=== PATIENT | female | born 1995 | race Caucasian/White ===

== ENCOUNTER → 2017-02-04 | Outpatient (CLI) | payer OTHER ==
--- NOTE | 2017-02-04 09:15 | US ---
EXAMINATION TYPE: US abdomen complete DATE OF EXAM: 02/04/2017 8:32 AM COMPARISON: NONE CLINICAL HISTORY: 21 year-old female with elevated Liver Enzymes R74.8. TECHNIQUE: Multiple sonographic images of the abdomen were obtained. 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 Liver Length: 22.4 cm Gallbladder Wall: 0.2 cm CBD: 0.4 cm Spleen: 11.2 cm Right Kidney: 10.5 x 4.7 x 3.9cm Left Kidney: 11.6 x 4.5 x 4.5 cm Pancreas: Only a small portion of the pancreatic neck and body are seen. The pancreatic tail and head are suboptimally visualized. Liver: Enlarged, measuring larger than prior exam. There is marked diffuse increased echogenicity wit h far field attenuation also as noted previously. This secondarily limits assessment for focal lesion . Gallbladder: No abnormal gallbladder distention, wall thickening, pericholecystic fluid, or shadowin g calculi. Evidence for sonographic Levi's sign: No CBD: wnl Spleen: wnl Right Kidney: No hydronephrosis Left Kidney: No hydronephrosis Upper IVC: wnl Abd Aorta: wnl IMPRESSION: Hepatomegaly with the liver measuring larger as compared to 2014. There is marked hepatic steatosis. Consider medical intervention.
== END | disposition home or self-care (01) ==
LOC: RADUSWWP 08:00
PROVIDERS: ATTEND Family Medicine
DX: K76.0 Fatty (change of) liver, not elsewhere classified (principal); R16.0 Hepatomegaly, not elsewhere classified
CPT/HCPCS: 76700

== ENCOUNTER 2017-06-12 15:34 | Emergency (ER) | payer OTHER ==
[2017-06-12 15:47] VITALS: BP 150/90; PULSE 86; RESP 18; TEMP 98.6
--- NOTE | 2017-06-12 16:05 | ED ---
Upper Extremity HPI - General Chief Complaint: Extremity Injury, Upper Stated Complaint: Finger Pain Time Seen by Provider: 06/12/17 15:53 Source: patient, RN notes reviewed, old records reviewed Mode of arrival: ambulatory Limitations: no limitations - History of Present Illness Initial Comments: This is a 22-year-old female to emergency Department chief complaint of right fourth finger pain. Patient reports that she was sweeping crumbs off of her bed when she felt her finger bent backward. Patient reports that she's had a previous fracture over her finger and is concerned that there may be further injury besides just a sprain. She states that she is right-handed. She denies any peripheral paresthesias. She reports that she has full range of motion distally to the finger but has pain mainly over the MCP.Patient denies any recent fever, chills, shortness of breath, chest pain, back pain, abdominal pain , nausea vomiting, numbness or tingling, dysuria or hematuria, constipation or diarrhea, headaches or visual changes, or any other current symptoms - Related Data Home Medications Medication Instructions Recorded Confirmed Albuterol Sulfate [Ventolin HFA] 2 puff INHALATION RT-Q6H PRN 04/08/14 10/26/16 Levothyroxine Sodium [Synthroid] 175 mcg PO DAILY 04/08/14 10/26/16 Omeprazole [PriLOSEC] 20 mg PO AC-BID 04/08/14 10/26/16 Loratadine [Claritin] 10 mg PO DAILY 02/05/16 10/26/16 Pnv,Calcium 72/Iron/Folic Acid 1 tab PO DAILY 02/05/16 10/26/16 [ Plus Tablet] Hydrochlorothiazide 25 mg PO DAILY 08/28/16 10/26/16 [Hydrochlorothiazide] Previous Rx's Medication Instructions Recorded Azithromycin [Zithromax Z-pack] 250 mg PO DIRECTED #6 tab 08/28/16 Amoxicillin 500 mg PO Q8H #21 capsule 10/18/16 Azithromycin [Zithromax Z-pack] 250 mg PO DIRECTED #6 tab 10/26/16 methylPREDNISolone [Medrol Dose 4 mg PO DIRECTED #1 pack 10/26/16 Pack] Allergies Allergy/AdvReac Type Severity Reaction Status Date / Time benzonatate Allergy Anaphylaxis Verified 06/12/17 15:47 [From Tesmikayla Perles] ibuprofen [From Motrin] Allergy Rash/Hives Verified 06/12/17 15:47 sulfamethoxazole Allergy Rash/Hives Verified 06/12/17 15:47 [From Bactrim] trimethoprim [From Bactrim] Allergy Rash/Hives Verified 06/12/17 15:47 Review of Systems ROS Statement: Those systems with pertinent positive or pertinent negative responses have been documented in the HPI. ROS Other: All systems not noted in ROS Statement are negative. Past Medical History Past Medical History: Asthma, GERD/Reflux, Thyroid Disorder History of Any Multi-Drug Resistant Organisms: None Reported Past Surgical History: Adenoidectomy Additional Past Surgical History / Comment(s): Eye surgery Past Psychological History: Anxiety, Depression Smoking Status: Former smoker Past Alcohol Use History: Occasional Past Drug Use History: None Reported General Exam - General Exam Comments Initial Comments: Well-appearing 22-year-old female. No acute distress. Limitations: no limitations General appearance: alert, in no apparent distress Head exam: Present: atraumatic, normocephalic, normal inspection Eye exam: Present: normal appearance, PERRL, EOMI. Absent: scleral icterus, conjunctival injection, periorbital swelling ENT exam: Present: normal exam, mucous membranes moist Neck exam: Present: normal inspection. Absent: tenderness, meningismus, lymphadenopathy Respiratory exam: Present: normal lung sounds bilaterally. Absent: respiratory distress, wheezes, rales, rhonchi, stridor Cardiovascular Exam: Present: regular rate, normal rhythm, normal heart sounds. Absent: systolic murmur, diastolic murmur, rubs, gallop, clicks GI/Abdominal exam: Present: soft, normal bowel sounds. Absent: distended, tenderness, guarding, rebound, rigid Extremities exam: Present: normal inspection, full ROM, normal capillary refill. Absent: tenderness, pedal edema, joint swelling, calf tenderness Right Hand Wrist exam: Present: normal inspection, full ROM, tenderness (Patient has tenderness over 4th MCP joint. Full range of motion. ) Neuro motor exam: Present: wrist extension intact, thumb opposition intact, thumb IP flexion intact, thumb adduction intact, fingers 2-5 abduction intact Vascular: Present: normal capillary refill Back exam: Present: normal inspection Neurological exam: Present: alert, oriented X3, CN II-XII intact Psychiatric exam: Present: normal affect, normal mood Skin exam: Present: warm, dry, intact, normal color. Absent: rash Course Vital Signs 06/12/17 15:45 Temperature 98.6 F Pulse Rate 86 Respiratory 18 Rate Blood Pressure 150/90 O2 Sat by Pulse 99 Oximetry Medical Decision Making - Medical Decision Making This is a 22-year-old female to emergency Department chief complaint of right fourth finger pain. Patient reports that she was sweeping crumbs off of her bed when she felt her finger bent backward. Patient reports that she's had a previous fracture over her finger and is concerned that there may be further injury besides just a sprain. Patient has full range of motion of her finger. No significant deformity noted. No bruising noted. Patient is concerned for fracture. One view x-ray of the hand was obtained. No evidence of any acute process. Patient be given a finger splint. - Radiology Data Radiology results: report reviewed X-ray reviewed and negative for any acute process. Disposition Clinical Impression: Sprain of finger, right Disposition: HOME SELF-CARE Condition: Good Instructions: Hand Sprain (ED) Additional Instructions: Patient advised to take Motrin Tylenol for pain. Wear the splint. Return to the emergency department if any alarming signs or symptoms occur. Referrals: Gisella Smith MD [Primary Care Provider] - 1-2 days Time of Disposition: 16:21
--- NOTE | 2017-06-12 16:15 | XR ---
EXAMINATION TYPE: XR hand limited RT DATE OF EXAM: 06/12/2017 CLINICAL HISTORY: pain TECHNIQUE: Frontal, lateral images of the right hand are obtained. COMPARISON: None. FINDINGS: There is no acute fracture/dislocation evident. The joint spaces appear within normal limi ts. The overlying soft tissue appears unremarkable. IMPRESSION: There is no acute fracture or dislocation ICD 10 NO FRACTURE, INITIAL EVALUATION
== END 2017-06-12 16:36 | disposition home or self-care (01) ==
LOC: EC 15:34
DX: S63.619A Unspecified sprain of unspecified finger, initial encounter (principal); K21.9 Gastro-esophageal reflux disease without esophagitis; E07.9 Disorder of thyroid, unspecified; Z87.891 Personal history of nicotine dependence; Z79.899 Other long term (current) drug therapy; Z88.2 Allergy status to sulfonamides; Z88.6 Allergy status to analgesic agent; Z88.8 Allergy status to other drugs, medicaments and biological substances; X50.9XXA Other and unspecified overexertion or strenuous movements or postures, initial encounter
CPT/HCPCS: 99284

== ENCOUNTER 2017-08-14 10:43 | Emergency (ER) | payer OTHER ==
[2017-08-14 10:58] VITALS: RESP 18
[2017-08-14] MEDS ORDERED: ACETAMINOPHEN TAB 500 MG TAB PO STA (11:07)
--- NOTE | 2017-08-14 11:14 | ED ---
General Adult HPI - General Chief complaint: Fever Stated complaint: migraine Time Seen by Provider: 08/14/17 11:01 Source: patient, RN notes reviewed Mode of arrival: ambulatory Limitations: no limitations - History of Present Illness Initial comments: 22-year-old female presents to the emergency room chief complaint of fever. Patient states she had a fever 2 days ago she was seen here she was told she had most likely the stomach bug and sent home. Patient states that today she noticed the fever is back. She not taking medicine prior to arrival. She states she's had a cough and congestion. She states she has soreness to bilateral aspects of the neck. She denies any vomiting but states she still having the nausea. She denies any abdominal pain. She states she did not get her influenza vaccination. Patient was concerned due to her continued symptoms so she thought that she should be evaluated. Patient denies any recent shortness of breath, chest pain, back pain, abdominal pain, nausea vomiting, numbness or tingling, dysuria or hematuria, constipation or diarrhea, or any other current symptoms. - Related Data Home Medications Medication Instructions Recorded Confirmed Albuterol Sulfate [Ventolin HFA] 2 puff INHALATION RT-Q6H PRN 04/08/14 08/14/17 Loratadine [Claritin] 10 mg PO DAILY 02/05/16 08/14/17 Beclomethasone Dip 80 Mcg/Puff 1 puff INHALATION RT-BID PRN 08/12/17 08/14/17 [Qvar] FLUoxetine HCL [PROzac] 20 mg PO DAILY 08/12/17 08/14/17 Levothyroxine Sodium [Synthroid] 50 mcg PO DAILY 08/12/17 08/14/17 Levothyroxine Sodium [Synthroid] 200 mcg PO DAILY 08/12/17 08/14/17 Montelukast Sodium [Singulair] 10 mg PO QAM 08/12/17 08/14/17 Omeprazole 40 mg PO DAILY 08/12/17 08/14/17 Rgd-Qyvv-Gkati Acid 1 cap PO DAILY 08/12/17 08/14/17 [-U Capsule (formulary)] glipiZIDE [Glucotrol] 5 mg PO BID 08/12/17 08/14/17 Allergies Allergy/AdvReac Type Severity Reaction Status Date / Time benzonatate Allergy Anaphylaxis Verified 08/14/17 11:18 [From Tessalon Perles] ibuprofen [From Motrin] Allergy Rash/Hives Verified 08/14/17 11:18 sulfamethoxazole Allergy Rash/Hives Verified 08/14/17 11:18 [From Bactrim] trimethoprim [From Bactrim] Allergy Rash/Hives Verified 08/14/17 11:18 Review of Systems ROS Statement: Those systems with pertinent positive or pertinent negative responses have been documented in the HPI. ROS Other: All systems not noted in ROS Statement are negative. Past Medical History Past Medical History: Asthma, GERD/Reflux, Thyroid Disorder History of Any Multi-Drug Resistant Organisms: None Reported Past Surgical History: Adenoidectomy Additional Past Surgical History / Comment(s): Eye surgery Past Psychological History: Anxiety, Depression Smoking Status: Former smoker Past Alcohol Use History: Occasional Past Drug Use History: Marijuana General Exam - General Exam Comments Initial Comments: General: The patient is awake and alert, in no distress, and does not appear acutely ill. Eye: Pupils are equal, round and reactive to light. Ears, nose, mouth and throat: There are moist mucous membranes. Neck: The neck is supple, there is no tenderness. Full range of motion. Patient is able to touch chin to chest. Cardiovascular: There is a regular rate and rhythm. No murmur, rub or gallop is appreciated. Respiratory: Lungs are clear to auscultation, respirations are non-labored, breath sounds are equal. No wheezes, stridor, rales, or rhonchi. Gastrointestinal: Soft, non-distended, non-tender abdomen without masses or organomegaly noted. There is no rebound or guarding present. No CVA tenderness. Bowel sounds are unremarkable. Back: There is no tenderness to palpation in the midline. There is no obvious deformity. No rashes noted. Musculoskeletal: Normal ROM, no tenderness, There is no pedal edema. There is no calf tenderness or swelling. Sensation intact. Pulses equal bilaterally 2+. Neurological: CN II-XII intact, There are no obvious motor or sensory deficits. Coordination appears grossly intact. Speech is normal. Skin: Skin is warm and dry and no rashes or lesions are noted. Psychiatric: Cooperative, appropriate mood & affect, normal judgment. Limitations: no limitations Course Vital Signs 09/28/17 09/28/17 09/28/17 10:55 12:14 13:28 Temperature 101.8 F H 99.5 F Pulse Rate 136 H 118 H 89 Respiratory 18 18 18 Rate Blood Pressure 135/93 144/87 136/80 O2 Sat by Pulse 98 96 100 Oximetry Medical Decision Making - Medical Decision Making 22-year-old female presents to the emergency department with a chief complaint of fever. At this time lab work is been reviewed. Patient's symptoms have improved drastically. This time patient's neck discomfort does not appear to be most likely due to muscle aches. This time we did discuss close follow-up with her doctor. We discussed return parameters all the patient's. She stated that she understood and she does agree with this plan. All questions have been answered. This time the patient will be discharged home. - Lab Data Result diagrams: 08/14/17 11:16 08/14/17 11:16 Lab Results 08/14/17 08/14/17 08/14/17 Range/Units 10:58 11:16 11:16 WBC 10.6 (3.8-10.6) k/uL RBC 4.69 (3.80-5.40) m/uL Hgb 9.3 L (11.4-16.0) gm/dL Hct 32.1 L (34.0-46.0) % MCV 68.5 L (80.0-100.0) fL MCH 19.8 L (25.0-35.0) pg MCHC 28.9 L (31.0-37.0) g/dL RDW 16.4 H (11.5-15.5) % Plt Count 458 H (150-450) k/uL Neutrophils % 75 % Lymphocytes % 17 % Monocytes % 4 % Eosinophils % 2 % Basophils % 0 % Neutrophils # 7.9 H (1.3-7.7) k/uL Lymphocytes # 1.8 (1.0-4.8) k/uL Monocytes # 0.4 (0-1.0) k/uL Eosinophils # 0.2 (0-0.7) k/uL Basophils # 0.0 (0-0.2) k/uL Hypochromasia Marked Poikilocytosis Slight Anisocytosis Slight Microcytosis Marked PT (9.0-12.0) sec INR (<1.2) APTT (22.0-30.0) sec Sodium (137-145) mmol/L Potassium (3.5-5.1) mmol/L Chloride (98-107) mmol/L Carbon Dioxide (22-30) mmol/L Anion Gap mmol/L BUN (7-17) mg/dL Creatinine (0.52-1.04) mg/dL Est GFR (MDRD) Af Amer (>60 ml/min/1.73 sqM) Est GFR (MDRD) Non-Af (>60 ml/min/1.73 sqM) Glucose (74-99) mg/dL Plasma Lactic Acid Tk 1.8 (0.7-2.0) mmol/L Calcium (8.4-10.2) mg/dL Total Bilirubin (0.2-1.3) mg/dL AST (14-36) U/L ALT (9-52) U/L Alkaline Phosphatase (38-126) U/L Total Protein (6.3-8.2) g/dL Albumin (3.5-5.0) g/dL Urine Color Urine Appearance (Clear) Urine pH (5.0-8.0) Ur Specific [place] (1.001-1.035) Urine Protein (Negative) Urine Glucose (UA) (Negative) Urine Ketones (Negative) Urine Blood (Negative) Urine Nitrite (Negative) Urine Bilirubin (Negative) Urine Urobilinogen (<2.0) mg/dL Ur Leukocyte Esterase (Negative) Urine RBC (0-5) /hpf Urine WBC (0-5) /hpf Ur Squamous Epith Cells (0-4) /hpf Urine Bacteria (None) /hpf Urine Mucus (None) /hpf Heterophile Antibody Negative (Negative) Influenza Type A RNA (Not Detectd) Influenza Type B (PCR) (Not Detectd) 08/14/17 08/14/17 08/14/17 Range/Units 11:16 11:16 11:16 WBC (3.8-10.6) k/uL RBC (3.80-5.40) m/uL Hgb (11.4-16.0) gm/dL Hct (34.0-46.0) % MCV (80.0-100.0) fL MCH (25.0-35.0) pg MCHC (31.0-37.0) g/dL RDW (11.5-15.5) % Plt Count (150-450) k/uL Neutrophils % % Lymphocytes % % Monocytes % % Eosinophils % % Basophils % % Neutrophils # (1.3-7.7) k/uL Lymphocytes # (1.0-4.8) k/uL Monocytes # (0-1.0) k/uL Eosinophils # (0-0.7) k/uL Basophils # (0-0.2) k/uL Hypochromasia Poikilocytosis Anisocytosis Microcytosis PT 11.1 (9.0-12.0) sec INR 1.1 (<1.2) APTT 26.0 (22.0-30.0) sec Sodium 137 (137-145) mmol/L Potassium 3.9 (3.5-5.1) mmol/L Chloride 101 (98-107) mmol/L Carbon Dioxide 24 (22-30) mmol/L Anion Gap 12 mmol/L BUN 8 (7-17) mg/dL Creatinine 0.79 (0.52-1.04) mg/dL Est GFR (MDRD) Af Amer >60 (>60 ml/min/1.73 sqM) Est GFR (MDRD) Non-Af >60 (>60 ml/min/1.73 sqM) Glucose 168 H (74-99) mg/dL Plasma Lactic Acid Tk (0.7-2.0) mmol/L Calcium 9.1 (8.4-10.2) mg/dL Total Bilirubin 0.3 (0.2-1.3) mg/dL AST 52 H (14-36) U/L ALT 62 H (9-52) U/L Alkaline Phosphatase 75 (38-126) U/L Total Protein 7.7 (6.3-8.2) g/dL Albumin 4.0 (3.5-5.0) g/dL Urine Color Yellow Urine Appearance Cloudy H (Clear) Urine pH 7.5 (5.0-8.0) Ur Specific [place] 1.012 (1.001-1.035) Urine Protein Trace H (Negative) Urine Glucose (UA) Negative (Negative) Urine Ketones Negative (Negative) Urine Blood Negative (Negative) Urine Nitrite Negative (Negative) Urine Bilirubin Negative (Negative) Urine Urobilinogen <2.0 (<2.0) mg/dL Ur Leukocyte Esterase Negative (Negative) Urine RBC 1 (0-5) /hpf Urine WBC 2 (0-5) /hpf Ur Squamous Epith Cells 11 H (0-4) /hpf Urine Bacteria Rare H (None) /hpf Urine Mucus Rare H (None) /hpf Heterophile Antibody (Negative) Influenza Type A RNA (Not Detectd) Influenza Type B (PCR) (Not Detectd) 08/14/17 Range/Units 11:16 WBC (3.8-10.6) k/uL RBC (3.80-5.40) m/uL Hgb (11.4-16.0) gm/dL Hct (34.0-46.0) % MCV (80.0-100.0) fL MCH (25.0-35.0) pg MCHC (31.0-37.0) g/dL RDW (11.5-15.5) % Plt Count (150-450) k/uL Neutrophils % % Lymphocytes % % Monocytes % % Eosinophils % % Basophils % % Neutrophils # (1.3-7.7) k/uL Lymphocytes # (1.0-4.8) k/uL Monocytes # (0-1.0) k/uL Eosinophils # (0-0.7) k/uL Basophils # (0-0.2) k/uL Hypochromasia Poikilocytosis Anisocytosis Microcytosis PT (9.0-12.0) sec INR (<1.2) APTT (22.0-30.0) sec Sodium (137-145) mmol/L Potassium (3.5-5.1) mmol/L Chloride (98-107) mmol/L Carbon Dioxide (22-30) mmol/L Anion Gap mmol/L BUN (7-17) mg/dL Creatinine (0.52-1.04) mg/dL Est GFR (MDRD) Af Amer (>60 ml/min/1.73 sqM) Est GFR (MDRD) Non-Af (>60 ml/min/1.73 sqM) Glucose (74-99) mg/dL Plasma Lactic Acid Tk (0.7-2.0) mmol/L Calcium (8.4-10.2) mg/dL Total Bilirubin (0.2-1.3) mg/dL AST (14-36) U/L ALT (9-52) U/L Alkaline Phosphatase (38-126) U/L Total Protein (6.3-8.2) g/dL Albumin (3.5-5.0) g/dL Urine Color Urine Appearance (Clear) Urine pH (5.0-8.0) Ur Specific [place] (1.001-1.035) Urine Protein (Negative) Urine Glucose (UA) (Negative) Urine Ketones (Negative) Urine Blood (Negative) Urine Nitrite (Negative) Urine Bilirubin (Negative) Urine Urobilinogen (<2.0) mg/dL Ur Leukocyte Esterase (Negative) Urine RBC (0-5) /hpf Urine WBC (0-5) /hpf Ur Squamous Epith Cells (0-4) /hpf Urine Bacteria (None) /hpf Urine Mucus (None) /hpf Heterophile Antibody (Negative) Influenza Type A RNA Not Detected (Not Detectd) Influenza Type B (PCR) Not Detected (Not Detectd) Disposition Clinical Impression: Fever, Viral syndrome Disposition: HOME SELF-CARE Condition: Stable Instructions: Fever in Adults (ED) Additional Instructions: Please use medication as discussed. Please follow up with family doctor if symptoms have not improved over the next two days. Please return to the emergency room if your symptoms increase or worsen or for any other concerns. Referrals: Gisella Smith MD [Primary Care Provider] - 1-2 days Time of Disposition: 13:42
[2017-08-14 11:49] LABS: Anisocytosis Slight; Appearance,Urine Cloudy (Clear); Bacteria,Urine Rare /hpf; Basophils % (A) 0 %; Bilirubin,Urine Negative (Negative); CH 19.4; CHCM 28.4; Eosinophils # (A) 0.2 k/uL (0-0.7); Eosinophils % (A) 2 %; Glucose,Urine (UA) Negative (Negative); HCT 32.1 % (34.0-46.0); HDW 3.58; HGB 9.3 gm/dL (11.4-16.0); Hypochromasia Marked; Ketones,Urine Negative (Negative); Leukocyte Esterase,Urine Negative (Negative); Luc # (Auto) 0.28; Luc % (Auto) 3; Lymphocytes # (A) 1.8 k/uL (1.0-4.8); Lymphocytes % (A) 17 %; MCH 19.8 pg (25.0-35.0); MCHC 28.9 g/dL (31.0-37.0); MCV 68.5 fL (80.0-100.0); Mean Platelet Volume 7.4; Microcytosis Marked; Monocytes # (A) 0.4 k/uL (0-1.0); Monocytes % (A) 4 %; Mucus,Urine Rare /hpf; Neutrophils # (A) 7.9 k/uL (1.3-7.7); Neutrophils % (A) 75 %; Nitrite,Urine Negative (Negative); PH, Urine 7.5 (5.0-8.0); Particle Count 4935; Poikilocytosis Slight; Protein,Urine Trace (Negative); RBC 4.69 m/uL (3.80-5.40); RBC,Urine 1 /hpf (0-5); RDW 16.4 % (11.5-15.5); Specific Gravity,Urine 1.012 (1.001-1.035); Squamous Epithelial Cell,Urine 11 /hpf (0-4); UA Billing (MACRO vs. MICRO) MICRO; Urobilinogen,Urine <2.0 mg/dL (<2.0); WBC 10.6 k/uL (3.8-10.6); WBC (Perox) 11.08; WBC,Urine 2 /hpf (0-5)
[2017-08-14 11:52] LABS: ALT 62 U/L (9-52); AST 52 U/L (14-36); Alkaline Phosphatase 75 U/L (38-126); Anion Gap 12 mmol/L; Blood Urea Nitrogen 8 mg/dL (7-17); Calcium 9.1 mg/dL (8.4-10.2); Carbon Dioxide 24 mmol/L (22-30); Chloride 101 mmol/L (98-107); Glucose 168 mg/dL (74-99); Non-African American GFR(MDRD) >60 (>60 ml/min/1.73 sqM); Potassium 3.9 mmol/L (3.5-5.1); Sodium 137 mmol/L (137-145); Total Bilirubin 0.3 mg/dL (0.2-1.3); Total Protein 7.7 g/dL (6.3-8.2)
[2017-08-14 12:12] LABS: INR 1.1 (<1.2); Prothrombin Time 11.1 sec (9.0-12.0)
[2017-08-14] MEDS ORDERED: SODIUM CHLORIDE 0.9% 1,000 ML IV STA (12:16)
[2017-08-14] MEDS ORDERED: ONDANSETRON 4 MG/2 ML VIAL IVP STA (12:16)
[2017-08-14 13:28] VITALS: BP 136/80; PULSE 89
[2017-08-14 14:19] VITALS: TEMP 98.1
== END 2017-08-14 14:18 | disposition home or self-care (01) ==
LOC: EC 10:43
DX: B34.9 Viral infection, unspecified (principal); J45.909 Unspecified asthma, uncomplicated; K21.9 Gastro-esophageal reflux disease without esophagitis; F32.9 Major depressive disorder, single episode, unspecified; E07.9 Disorder of thyroid, unspecified; Z87.891 Personal history of nicotine dependence; Z88.2 Allergy status to sulfonamides; Z88.6 Allergy status to analgesic agent; Z88.8 Allergy status to other drugs, medicaments and biological substances; Z79.84 Long term (current) use of oral hypoglycemic drugs; Z79.899 Other long term (current) drug therapy
CPT/HCPCS: 36415; 80053; 83605; 85025; 85610; 85730; 86308; 81001; 87040; 87086; 87502; 99283; 96374; 96361; J2405

== ENCOUNTER 2017-08-17 00:15 | Emergency (ER) | payer OTHER ==
[2017-08-17] MEDS ORDERED: SODIUM CHLORIDE 0.9% 1,000 ML IV ONE (01:00)
[2017-08-17] MEDS ORDERED: ONDANSETRON 4 MG/2 ML VIAL IVP STA (01:00)
[2017-08-17] MEDS ORDERED: AZITHROMYCIN 500 MG TAB PO STA (01:00)
--- NOTE | 2017-08-17 01:31 | ED ---
Fever HPI - General Chief Complaint: Fever Stated Complaint: fever Time Seen by Provider: 08/17/17 00:19 Source: patient Mode of arrival: ambulatory Limitations: no limitations - History of Present Illness Initial Comments: This patient is a 22-year-old woman who presents with complaint that she continues to have intermittent fevers. The patient states that she was seen here for the same but symptoms continue. She states that about 8-10 days ago she started having a little bit of a nonproductive cough. She has then been having about 5-6 days of intermittent fevers. She states that she will take Tylenol and they will improve a bit but they recur. She also has had a bit of diarrhea and vomiting. The diarrhea resolved but she does have some vomiting if she takes much in way of solid foods. She states she is tolerating Gatorade. She denies abdominal pain. She denies chest pain. She also has had some upper respiratory congestion. MD Complaint: fever -: days(s) Temperature Source: oral Associated Symptoms: cough, nausea, diarrhea Treatments Prior to Arrival: Acetaminophen - Related Data Home Medications Medication Instructions Recorded Confirmed Albuterol Sulfate [Ventolin HFA] 2 puff INHALATION RT-Q6H PRN 04/08/14 08/14/17 Loratadine [Claritin] 10 mg PO DAILY 02/05/16 08/14/17 Beclomethasone Dip 80 Mcg/Puff 1 puff INHALATION RT-BID PRN 08/12/17 08/14/17 [Qvar] FLUoxetine HCL [PROzac] 20 mg PO DAILY 08/12/17 08/14/17 Levothyroxine Sodium [Synthroid] 50 mcg PO DAILY 08/12/17 08/14/17 Levothyroxine Sodium [Synthroid] 200 mcg PO DAILY 08/12/17 08/14/17 Montelukast Sodium [Singulair] 10 mg PO QAM 08/12/17 08/14/17 Omeprazole 40 mg PO DAILY 08/12/17 08/14/17 Oxy-Oayq-Wkzhk Acid 1 cap PO DAILY 08/12/17 08/14/17 [-U Capsule (formulary)] glipiZIDE [Glucotrol] 5 mg PO BID 08/12/17 08/14/17 Previous Rx's Medication Instructions Recorded Azithromycin [Zithromax Z-pack] 250 mg PO DIRECTED #6 tab 10/01/17 Ondansetron Odt [Zofran ODT] 4 mg PO Q8HR PRN #10 tab 08/17/17 Allergies Allergy/AdvReac Type Severity Reaction Status Date / Time benzonatate Allergy Anaphylaxis Verified 08/17/17 00:28 [From Tessalon Perles] ibuprofen [From Motrin] Allergy Rash/Hives Verified 08/17/17 00:28 sulfamethoxazole Allergy Rash/Hives Verified 08/17/17 00:28 [From Bactrim] trimethoprim [From Bactrim] Allergy Rash/Hives Verified 08/17/17 00:28 Review of Systems ROS Statement: Those systems with pertinent positive or pertinent negative responses have been documented in the HPI. ROS Other: All systems not noted in ROS Statement are negative. Constitutional: Reports: as per HPI, fever, chills. Denies: weakness Eyes: Denies: vision change ENT: Reports: congestion. Denies: throat pain Respiratory: Reports: as per HPI, cough, wheezes. Denies: dyspnea, hemoptysis Cardiovascular: Denies: chest pain, orthopnea, edema, syncope Gastrointestinal: Reports: as per HPI, vomiting, diarrhea. Denies: abdominal pain, nausea Genitourinary: Denies: dysuria, frequency, hematuria Musculoskeletal: Denies: back pain Skin: Denies: rash Neurological: Denies: headache, weakness, numbness Past Medical History Past Medical History: Asthma, GERD/Reflux, Thyroid Disorder History of Any Multi-Drug Resistant Organisms: None Reported Past Surgical History: Adenoidectomy Additional Past Surgical History / Comment(s): Eye surgery Past Psychological History: Anxiety, Depression Smoking Status: Former smoker Past Alcohol Use History: Occasional Past Drug Use History: Marijuana General Exam Limitations: no limitations General appearance: alert, in no apparent distress, obese Head exam: Present: atraumatic, normocephalic Eye exam: Present: normal appearance. Absent: scleral icterus, conjunctival injection Neck exam: Present: normal inspection, full ROM. Absent: meningismus Respiratory exam: Present: normal lung sounds bilaterally. Absent: respiratory distress, wheezes, rales, rhonchi, stridor Cardiovascular Exam: Present: normal rhythm, tachycardia (Rate approximately 108 at my exam), normal heart sounds. Absent: systolic murmur, diastolic murmur , rubs, gallop GI/Abdominal exam: Present: soft. Absent: distended, tenderness, guarding, rebound, mass Extremities exam: Present: normal inspection, normal capillary refill. Absent: pedal edema, calf tenderness Back exam: Present: normal inspection. Absent: CVA tenderness (R), CVA tenderness (L) Neurological exam: Present: alert Skin exam: Present: warm, dry, intact, normal color. Absent: rash Course Vital Signs 08/17/17 08/17/17 00:18 02:52 Temperature 101.8 F H 100 F H Pulse Rate 121 H 107 H Respiratory 16 20 Rate Blood Pressure 156/99 147/62 O2 Sat by Pulse 97 98 Oximetry Disposition Clinical Impression: Pneumonia Disposition: HOME SELF-CARE Condition: Fair Instructions: Pneumonia (ED) Prescriptions: Azithromycin [Zithromax Z-pack] 250 mg PO DIRECTED #6 tab Ondansetron Odt [Zofran ODT] 4 mg PO Q8HR PRN #10 tab PRN Reason: Nausea Referrals: Gisella Smith MD [Primary Care Provider] - 1-2 days
[2017-08-17 03:35] VITALS: BP 142/70; PULSE 80; RESP 18; TEMP 98
== END 2017-08-17 03:34 | disposition home or self-care (01) ==
LOC: EC 00:15
DX: J18.9 Pneumonia, unspecified organism (principal); R11.2 Nausea with vomiting, unspecified; R00.0 Tachycardia, unspecified; J45.909 Unspecified asthma, uncomplicated; K21.9 Gastro-esophageal reflux disease without esophagitis; E07.9 Disorder of thyroid, unspecified; E11.9 Type 2 diabetes mellitus without complications; F32.9 Major depressive disorder, single episode, unspecified; F41.9 Anxiety disorder, unspecified; E66.9 Obesity, unspecified; Z87.891 Personal history of nicotine dependence; Z79.84 Long term (current) use of oral hypoglycemic drugs; Z79.899 Other long term (current) drug therapy; Z88.1 Allergy status to other antibiotic agents; Z88.6 Allergy status to analgesic agent; Z88.8 Allergy status to other drugs, medicaments and biological substances; Z68.43 Body mass index [BMI] 50.0-59.9, adult
CPT/HCPCS: 99283 ×2; 96374 ×2; 96361 ×2; J2405

== ENCOUNTER 2017-12-18 13:21 | Emergency (ER) | payer OTHER ==
[2017-12-18] MEDS ORDERED: IPRATROPIUM-ALBUTEROL 3 ML NEB INHALATION STA (13:31)
[2017-12-18] MEDS ORDERED: ACETAMINOPHEN TAB 500 MG TAB PO STA (13:31)
--- NOTE | 2017-12-18 13:34 | ED ---
General Adult HPI - General Chief complaint: Upper Respiratory Infection Stated complaint: Cough Time Seen by Provider: 12/18/17 13:26 Source: patient, RN notes reviewed Mode of arrival: ambulatory Limitations: no limitations - History of Present Illness Initial comments: 22 yo female presents to the ER with cc of cough and SOB. she states she has been sick for about 1 week. She states that she suffers from asthma and has been using her inhaler. She states she has been running low grade temps. She was concerned because she just does not seem to be improving so she thought that she should be seen. There has been no other symptoms at this time. Patient denies any recent chest pain, back pain, abdominal pain, nausea vomiting, numbness or tingling, dysuria or hematuria, constipation or diarrhea, headaches or visual changes, or any other current symptoms. - Related Data Home Medications Medication Instructions Recorded Confirmed Loratadine [Claritin] 10 mg PO DAILY 02/05/16 12/18/17 Beclomethasone Dip 80 Mcg/Puff 2 puff INHALATION RT-DAILY 08/12/17 12/18/17 [Qvar] FLUoxetine HCL [PROzac] 20 mg PO DAILY 08/12/17 12/18/17 Levothyroxine Sodium [Synthroid] 50 mcg PO DAILY 08/12/17 12/18/17 Levothyroxine Sodium [Synthroid] 200 mcg PO DAILY 08/12/17 12/18/17 Montelukast Sodium [Singulair] 10 mg PO QAM 08/12/17 12/18/17 Omeprazole 40 mg PO DAILY 08/12/17 12/18/17 glipiZIDE [Glucotrol] 5 mg PO DAILY 08/12/17 12/18/17 Hydrochlorothiazide [Hydrodiuril] 25 mg PO DAILY 10/27/17 12/18/17 Previous Rx's Medication Instructions Recorded Albuterol Inhaler [Ventolin Hfa 1 - 2 puff INHALATION Q4-6H PRN #1 12/18/17 Inhaler] inhaler predniSONE 50 mg PO DAILY #5 tab 12/18/17 Allergies Allergy/AdvReac Type Severity Reaction Status Date / Time benzonatate Allergy Rash/Hives Verified 12/18/17 13:25 [From Tessalon Perles] ibuprofen [From Motrin] Allergy KIDNEY PAIN Verified 12/18/17 13:25 sulfamethoxazole Allergy Rash/Hives Verified 12/18/17 13:25 [From Bactrim] trimethoprim [From Bactrim] Allergy Rash/Hives Verified 12/18/17 13:25 Review of Systems ROS Statement: Those systems with pertinent positive or pertinent negative responses have been documented in the HPI. ROS Other: All systems not noted in ROS Statement are negative. Past Medical History Past Medical History: Asthma, GERD/Reflux, Thyroid Disorder History of Any Multi-Drug Resistant Organisms: None Reported Past Surgical History: Adenoidectomy Additional Past Surgical History / Comment(s): Eye surgery Past Psychological History: Anxiety, Depression Smoking Status: Former smoker Past Alcohol Use History: Occasional Past Drug Use History: Marijuana General Exam - General Exam Comments Initial Comments: General exam: Alert, active, comfortable in no apparent distress Head: Normocephalic Eyes: Normal reaction of pupils, equal size, normal range of extraocular motion Ears: normal external ear canals, pink tympanic membranes with normal cone of light Nose: clear with pink turbinates Throat: no erythema or exudates with normal sized tonsils Neck: no masses, no nuchal rigidity Chest: no chest wall deformity Lungs: equal air entry with no crackles or wheeze CVS: S1 and S2 normal with no audible mumurs, regular rhythm Abdomen: no hepatosplenomegaly, normal bowel sounds, no guarding or rigidity Spine: no scoliosis or deformity Skin: no rashes Neurological: No focal deficits, tone is normal in all 4 extremities Limitations: no limitations Course Vital Signs 12/18/17 12/18/17 12/18/17 13:23 13:31 13:45 Temperature 98.4 F 98.7 F Pulse Rate 120 H 72 Respiratory 18 Rate Blood Pressure 146/71 O2 Sat by Pulse 94 L Oximetry 12/18/17 13:55 Temperature Pulse Rate 74 Respiratory Rate Blood Pressure O2 Sat by Pulse Oximetry Medical Decision Making - Medical Decision Making 22-year-old female presents to the emergency department chief complaint of shortness of breath. At this time x-ray is reviewed. At this time. Patient does have acute bronchitis. This time we will start her on steroids for home. We discussed continuing to use her inhaler we did discuss return parameters and follow-up and all questions. Patient stated the Lee management this plan. All questions have been answered. They will be discharged. - Lab Data Lab Results 12/18/17 Range/Units 13:45 Influenza Type A RNA Not Detected (Not Detectd) Influenza Type B (PCR) Not Detected (Not Detectd) - Radiology Data Radiology results: report reviewed, image reviewed Disposition Clinical Impression: Acute bronchitis Disposition: HOME SELF-CARE Condition: Stable Instructions: Acute Bronchitis (ED) Additional Instructions: Please use medication as discussed. Please follow up with family doctor if symptoms have not improved over the next two days. Please return to the emergency room if your symptoms increase or worsen or for any other concerns. Prescriptions: Albuterol Inhaler [Ventolin Hfa Inhaler] 1 - 2 puff INHALATION Q4-6H PRN #1 inhaler PRN Reason: Cough predniSONE 50 mg PO DAILY #5 tab Referrals: Gisella Smith MD [Primary Care Provider] - 1-2 days Time of Disposition: 14:20
--- NOTE | 2017-12-18 13:49 | XR ---
EXAMINATION TYPE: XR chest 2V DATE OF EXAM: 12/18/2017 COMPARISON: Prior chest x-ray 10/27/2017 HISTORY: Cough and congestion TECHNIQUE: Frontal and lateral views of the chest are obtained. FINDINGS: There is no focal air space opacity, pleural effusion, or pneumothorax seen. The cardiac silhouette size is within normal limits. The osseous structures are intact. There is bronchial wall thickening. IMPRESSION: Correlate for bronchitis, reactive airways disease, follow-up as indicated
[2017-12-18 14:41] VITALS: BP 113/96; PULSE 104; RESP 16; TEMP 97.9
== END 2017-12-18 14:33 | disposition home or self-care (01) ==
LOC: EC 13:21
DX: J20.9 Acute bronchitis, unspecified (principal); J45.909 Unspecified asthma, uncomplicated; K21.9 Gastro-esophageal reflux disease without esophagitis; E07.9 Disorder of thyroid, unspecified; F32.9 Major depressive disorder, single episode, unspecified; F41.9 Anxiety disorder, unspecified; Z87.891 Personal history of nicotine dependence; Z79.51 Long term (current) use of inhaled steroids; Z79.84 Long term (current) use of oral hypoglycemic drugs; Z79.899 Other long term (current) drug therapy; Z88.2 Allergy status to sulfonamides; Z88.6 Allergy status to analgesic agent; Z88.8 Allergy status to other drugs, medicaments and biological substances
CPT/HCPCS: 71046; 87502; 94640; 99284

== ENCOUNTER 2017-12-22 13:44 | Emergency (ER) | payer OTHER ==
[2017-12-22] MEDS ORDERED: SODIUM CHLORIDE 0.9% 1,000 ML IV STA (16:03)
[2017-12-22] MEDS ORDERED: IPRATROPIUM 0.5 MG/2.5 ML NEBU INHALATION STA (16:03)
[2017-12-22] MEDS ORDERED: ALBUTEROL NEBULIZED 2.5 MG/3 ML INHALATION STA (16:03)
[2017-12-22] MEDS ORDERED: DEXAMETHASONE SOD PHOSPHATE 10 MG/ML 1 ML VIAL IV STA (16:03)
[2017-12-22] MEDS ORDERED: ACETAMINOPHEN TAB 500 MG TAB PO STA (16:04)
--- NOTE | 2017-12-22 16:07 | ED ---
General Adult HPI - General Chief complaint: Recheck/Abnormal Lab/Rx Stated complaint: bronchitis-revisit Time Seen by Provider: 12/22/17 15:55 Source: patient, RN notes reviewed, old records reviewed Mode of arrival: wheelchair Limitations: no limitations - History of Present Illness Initial comments: 22-year-old female with history of asthma presents with a six-day history of cough and dyspnea. Patient was evaluated emergency department several days ago , prescribed prednisone for acute bronchitis. Her symptoms have failed to improve. She did not take the prednisone because it made her blood pressure high and she has been monitoring her blood pressure in accordance with her primary care physician's recommendations. She states she is also had runny nose. Diffuse myalgias. She is also had vomiting which is associated with her cough. She's also had several loose stools. - Related Data Home Medications Medication Instructions Recorded Confirmed Loratadine [Claritin] 10 mg PO DAILY 02/05/16 12/22/17 Beclomethasone Dip 80 Mcg/Puff 2 puff INHALATION RT-DAILY 08/12/17 12/22/17 [Qvar] FLUoxetine HCL [PROzac] 20 mg PO DAILY 08/12/17 12/22/17 Levothyroxine Sodium [Synthroid] 50 mcg PO DAILY 08/12/17 12/22/17 Levothyroxine Sodium [Synthroid] 200 mcg PO DAILY 08/12/17 12/22/17 Montelukast Sodium [Singulair] 10 mg PO QAM 08/12/17 12/22/17 Omeprazole 40 mg PO DAILY 08/12/17 12/22/17 glipiZIDE [Glucotrol] 5 mg PO DAILY 08/12/17 12/22/17 Hydrochlorothiazide [Hydrodiuril] 25 mg PO DAILY 10/27/17 12/22/17 Previous Rx's Medication Instructions Recorded Albuterol Inhaler [Ventolin Hfa 1 - 2 puff INHALATION Q4-6H PRN #1 12/18/17 Inhaler] inhaler Azithromycin [Zithromax Z-pack] 0 mg PO DIRECTED #6 tab 12/22/17 Allergies Allergy/AdvReac Type Severity Reaction Status Date / Time benzonatate Allergy Rash/Hives Verified 12/22/17 16:06 [From Tessalon Perles] ibuprofen [From Motrin] Allergy KIDNEY PAIN Verified 12/22/17 16:06 sulfamethoxazole Allergy Rash/Hives Verified 12/22/17 16:06 [From Bactrim] trimethoprim [From Bactrim] Allergy Rash/Hives Verified 12/22/17 16:06 Review of Systems ROS Statement: Those systems with pertinent positive or pertinent negative responses have been documented in the HPI. ROS Other: All systems not noted in ROS Statement are negative. Past Medical History Past Medical History: Asthma, GERD/Reflux, Thyroid Disorder History of Any Multi-Drug Resistant Organisms: None Reported Past Surgical History: Adenoidectomy Additional Past Surgical History / Comment(s): Eye surgery Past Psychological History: Anxiety, Depression Smoking Status: Former smoker Past Alcohol Use History: Occasional Past Drug Use History: Marijuana General Exam Limitations: no limitations General appearance: alert, in no apparent distress Head exam: Present: atraumatic, normocephalic Eye exam: Present: normal appearance, PERRL ENT exam: Present: other (Rhinorrhea and nasal congestion) Neck exam: Present: normal inspection. Absent: tenderness, meningismus Respiratory exam: Present: respiratory distress, wheezes, prolonged expiratory Cardiovascular Exam: Present: normal rhythm, tachycardia GI/Abdominal exam: Present: soft. Absent: distended, tenderness Extremities exam: Present: normal inspection, normal capillary refill. Absent: pedal edema, joint swelling, calf tenderness Neurological exam: Present: alert, oriented X3, CN II-XII intact. Absent: motor sensory deficit Psychiatric exam: Present: normal affect, normal mood Skin exam: Present: warm, dry, intact. Absent: cyanosis, diaphoretic Course Vital Signs 12/22/17 12/22/17 12/22/17 14:10 16:22 16:41 Temperature 99.9 F H Pulse Rate 127 H 80 84 Respiratory 20 Rate Blood Pressure 136/84 O2 Sat by Pulse 97 Oximetry Medical Decision Making - Medical Decision Making 22-year-old female history of asthma presenting for reevaluation. Patient has had persistent cough and flulike symptoms. Influenza test is negative. Laboratory studies reveal normal white blood cell count, hemoglobin 9.6 which is the patient's baseline. Chest x-ray does show concern for by basilar pneumonia. Patient will be started on a azithromycin for community-acquired pneumonia. She will follow-up with her primary care physician. She will continue albuterol at home and return with any worsening or changing symptoms. - Lab Data Result diagrams: 12/22/17 16:15 12/22/17 16:15 Lab Results 12/22/17 12/22/17 12/22/17 Range/Units 16:15 16:15 16:15 WBC 8.8 (3.8-10.6) k/uL RBC 5.06 (3.80-5.40) m/uL Hgb 9.6 L (11.4-16.0) gm/dL Hct 33.7 L (34.0-46.0) % MCV 66.6 L (80.0-100.0) fL MCH 19.0 L (25.0-35.0) pg MCHC 28.5 L (31.0-37.0) g/dL RDW 16.1 H (11.5-15.5) % Plt Count 457 H (150-450) k/uL Neutrophils % 72 % Lymphocytes % 19 % Monocytes % 4 % Eosinophils % 3 % Basophils % 0 % Neutrophils # 6.3 (1.3-7.7) k/uL Lymphocytes # 1.6 (1.0-4.8) k/uL Monocytes # 0.4 (0-1.0) k/uL Eosinophils # 0.2 (0-0.7) k/uL Basophils # 0.0 (0-0.2) k/uL Hypochromasia Marked Poikilocytosis Slight Anisocytosis Slight Microcytosis Marked PT 10.7 (9.0-12.0) sec INR 1.1 (<1.2) APTT 24.8 (22.0-30.0) sec Sodium 141 (137-145) mmol/L Potassium 3.7 (3.5-5.1) mmol/L Chloride 102 (98-107) mmol/L Carbon Dioxide 28 (22-30) mmol/L Anion Gap 11 mmol/L BUN 8 (7-17) mg/dL Creatinine 0.77 (0.52-1.04) mg/dL Est GFR (MDRD) Af Amer >60 (>60 ml/min/1.73 sqM) Est GFR (MDRD) Non-Af >60 (>60 ml/min/1.73 sqM) Glucose 122 H (74-99) mg/dL Calcium 9.4 (8.4-10.2) mg/dL Magnesium 1.7 (1.6-2.3) mg/dL Total Bilirubin 0.3 (0.2-1.3) mg/dL AST 48 H (14-36) U/L ALT 62 H (9-52) U/L Alkaline Phosphatase 73 (38-126) U/L Total Protein 7.5 (6.3-8.2) g/dL Albumin 3.9 (3.5-5.0) g/dL Influenza Type A RNA (Not Detectd) Influenza Type B (PCR) (Not Detectd) 12/22/17 Range/Units 16:15 WBC (3.8-10.6) k/uL RBC (3.80-5.40) m/uL Hgb (11.4-16.0) gm/dL Hct (34.0-46.0) % MCV (80.0-100.0) fL MCH (25.0-35.0) pg MCHC (31.0-37.0) g/dL RDW (11.5-15.5) % Plt Count (150-450) k/uL Neutrophils % % Lymphocytes % % Monocytes % % Eosinophils % % Basophils % % Neutrophils # (1.3-7.7) k/uL Lymphocytes # (1.0-4.8) k/uL Monocytes # (0-1.0) k/uL Eosinophils # (0-0.7) k/uL Basophils # (0-0.2) k/uL Hypochromasia Poikilocytosis Anisocytosis Microcytosis PT (9.0-12.0) sec INR (<1.2) APTT (22.0-30.0) sec Sodium (137-145) mmol/L Potassium (3.5-5.1) mmol/L Chloride (98-107) mmol/L Carbon Dioxide (22-30) mmol/L Anion Gap mmol/L BUN (7-17) mg/dL Creatinine (0.52-1.04) mg/dL Est GFR (MDRD) Af Amer (>60 ml/min/1.73 sqM) Est GFR (MDRD) Non-Af (>60 ml/min/1.73 sqM) Glucose (74-99) mg/dL Calcium (8.4-10.2) mg/dL Magnesium (1.6-2.3) mg/dL Total Bilirubin (0.2-1.3) mg/dL AST (14-36) U/L ALT (9-52) U/L Alkaline Phosphatase (38-126) U/L Total Protein (6.3-8.2) g/dL Albumin (3.5-5.0) g/dL Influenza Type A RNA Not Detected (Not Detectd) Influenza Type B (PCR) Not Detected (Not Detectd) Disposition Clinical Impression: Pneumonia, Acute bronchitis, Asthma exacerbation Disposition: ADMITTED IP TO THIS HOSP Condition: Fair Prescriptions: Azithromycin [Zithromax Z-pack] 0 mg PO DIRECTED #6 tab Referrals: Gisella Smith MD [Primary Care Provider] - 1-2 days Time of Disposition: 17:56
[2017-12-22 16:39] LABS: Anisocytosis Slight; Basophils % (A) 0 %; Eosinophils # (A) 0.2 k/uL (0-0.7); Eosinophils % (A) 3 %; HCT 33.7 % (34.0-46.0); HGB 9.6 gm/dL (11.4-16.0); Hypochromasia Marked; Lymphocytes # (A) 1.6 k/uL (1.0-4.8); Lymphocytes % (A) 19 %; MCHC 28.5 g/dL (31.0-37.0); MCV 66.6 fL (80.0-100.0); Mean Platelet Volume 7.4; Microcytosis Marked; Monocytes # (A) 0.4 k/uL (0-1.0); Monocytes % (A) 4 %; Neutrophils # (A) 6.3 k/uL (1.3-7.7); Neutrophils % (A) 72 %; Platelet Count 457 k/uL (150-450); Poikilocytosis Slight; RBC 5.06 m/uL (3.80-5.40); RDW 16.1 % (11.5-15.5); WBC 8.8 k/uL (3.8-10.6)
[2017-12-22 16:40] LABS: ALT 62 U/L (9-52); AST 48 U/L (14-36); Albumin 3.9 g/dL (3.5-5.0); Alkaline Phosphatase 73 U/L (38-126); Anion Gap 11 mmol/L; Blood Urea Nitrogen 8 mg/dL (7-17); Calcium 9.4 mg/dL (8.4-10.2); Carbon Dioxide 28 mmol/L (22-30); Chloride 102 mmol/L (98-107); Glucose 122 mg/dL (74-99); Magnesium 1.7 mg/dL (1.6-2.3); Potassium 3.7 mmol/L (3.5-5.1); Sodium 141 mmol/L (137-145); Total Bilirubin 0.3 mg/dL (0.2-1.3); Total Protein 7.5 g/dL (6.3-8.2)
[2017-12-22 16:43] LABS: INR 1.1 (<1.2); Partial Thromboplastin Time 24.8 sec (22.0-30.0); Prothrombin Time 10.7 sec (9.0-12.0)
--- NOTE | 2017-12-22 17:46 | XR ---
EXAMINATION TYPE: XR chest 2V DATE OF EXAM: 12/22/2017 COMPARISON: 12/18/2017 HISTORY: Shortness of breath and cough TECHNIQUE: Frontal and lateral views of the chest are obtained. FINDINGS: Increasing bibasilar opacities are seen in comparison to the prior. Peribronchial cuffing is also noted. Cardiomediastinal silhouette is within normal limits and osseous structures are intact . IMPRESSION: Increasing bibasilar opacities and peribronchial cuffing. Findings could again relate to bronchitis although developing bibasilar pneumonia is also possible.
[2017-12-22 18:25] VITALS: BP 140/82; PULSE 110; RESP 19; TEMP 97
== END 2017-12-22 18:00 | disposition other institution (70) ==
LOC: EC 13:44
DX: J18.9 Pneumonia, unspecified organism (principal); J45.901 Unspecified asthma with (acute) exacerbation; J20.9 Acute bronchitis, unspecified; R11.10 Vomiting, unspecified; K21.9 Gastro-esophageal reflux disease without esophagitis; E07.9 Disorder of thyroid, unspecified; F32.9 Major depressive disorder, single episode, unspecified; F41.9 Anxiety disorder, unspecified; Z87.891 Personal history of nicotine dependence; Z79.84 Long term (current) use of oral hypoglycemic drugs; Z79.51 Long term (current) use of inhaled steroids; Z79.899 Other long term (current) drug therapy; Z88.6 Allergy status to analgesic agent; Z88.2 Allergy status to sulfonamides; Z88.8 Allergy status to other drugs, medicaments and biological substances
CPT/HCPCS: 36415; 94640; 80053; 83735; 85025; 85610; 85730; 87502; 71046; 99284; 96374; 96361; J1100

== ENCOUNTER 2018-04-03 11:12 | Emergency (ER) | payer OTHER ==
[2018-04-03 11:26] VITALS: RESP 18; TEMP 98.7
[2018-04-03] MEDS ORDERED: diphenhydrAMINE 50 MG/ML 1 ML VIAL IVP STA (11:43)
[2018-04-03] MEDS ORDERED: SODIUM CHLORIDE 0.9% 1,000 ML IV STA (11:43)
[2018-04-03] MEDS ORDERED: METOCLOPRAMIDE 5 MG/ML 2 ML VIAL IVP STA (11:43)
--- NOTE | 2018-04-03 11:46 | ED ---
Nausea/Vomiting/Diarrhea HPI - General Chief complaint: Nausea/Vomiting/Diarrhea Stated complaint: Nausea/Diarrhea Time Seen by Provider: 04/03/18 11:28 Source: patient, RN notes reviewed, old records reviewed Mode of arrival: ambulatory Limitations: no limitations - History of Present Illness Initial comments: 23-year-old female presents emergency Department chief complaint of nausea and vomiting last night for him into this morning. Patient reports that she's had no other symptoms such as fevers. She reports some epigastric abdominal pain related to dry heaving. Patient reports that she's had no surgeries on her abdomen. She reports that she questions the child. Is complaining of some back pain. She does not know if this is related to UTI or because of her work. Patient reports that her has had similar symptoms 2 weeks ago. Patient reports she took some of her Zofran without any relief. Patient denies any recent fever, chills, shortness of breath, chest pain, back pain, abdominal pain, nausea vomiting, numbness or tingling, dysuria or hematuria, constipation or diarrhea, headaches or visual changes, or any other current symptoms - Related Data Home Medications Medication Instructions Recorded Confirmed Loratadine [Claritin] 10 mg PO DAILY 02/05/16 04/03/18 FLUoxetine HCL [PROzac] 20 mg PO DAILY 08/12/17 04/03/18 Levothyroxine Sodium [Synthroid] 200 mcg PO DAILY 08/12/17 04/03/18 Montelukast Sodium [Singulair] 10 mg PO QAM 08/12/17 04/03/18 Omeprazole 40 mg PO DAILY 08/12/17 04/03/18 Albuterol Inhaler [Ventolin Hfa 1 - 2 puff INHALATION RT-Q4H PRN 04/03/18 Inhaler] Levothyroxine Sodium [Synthroid] 25 mcg PO DAILY 04/03/18 04/03/18 Previous Rx's Medication Instructions Recorded Metoclopramide [Reglan] 10 mg PO ACHS #12 tab 04/03/18 Allergies Allergy/AdvReac Type Severity Reaction Status Date / Time benzonatate Allergy Rash/Hives Verified 04/03/18 12:00 [From Tessalon Perlbelinda] ibuprofen [From Motrin] Allergy KIDNEY PAIN Verified 04/03/18 12:00 sulfamethoxazole Allergy Rash/Hives Verified 04/03/18 12:00 [From Bactrim] trimethoprim [From Bactrim] Allergy Rash/Hives Verified 04/03/18 12:00 Review of Systems ROS Statement: Those systems with pertinent positive or pertinent negative responses have been documented in the HPI. ROS Other: All systems not noted in ROS Statement are negative. Past Medical History Past Medical History: Asthma, Diabetes Mellitus, GERD/Reflux, Thyroid Disorder History of Any Multi-Drug Resistant Organisms: None Reported Past Surgical History: Adenoidectomy Additional Past Surgical History / Comment(s): Eye surgery Past Psychological History: Anxiety, Depression Smoking Status: Former smoker Past Alcohol Use History: Rare Past Drug Use History: Marijuana General Exam Limitations: no limitations General appearance: alert, in no apparent distress Head exam: Present: atraumatic, normocephalic, normal inspection Eye exam: Present: normal appearance, PERRL, EOMI. Absent: scleral icterus, conjunctival injection, periorbital swelling ENT exam: Present: normal exam, mucous membranes moist Neck exam: Present: normal inspection. Absent: tenderness, meningismus, lymphadenopathy Respiratory exam: Present: normal lung sounds bilaterally. Absent: respiratory distress, wheezes, rales, rhonchi, stridor Cardiovascular Exam: Present: regular rate, normal rhythm, normal heart sounds. Absent: systolic murmur, diastolic murmur, rubs, gallop, clicks GI/Abdominal exam: Present: soft, normal bowel sounds. Absent: distended, tenderness, guarding, rebound, rigid Extremities exam: Present: normal inspection, full ROM, normal capillary refill. Absent: tenderness, pedal edema, joint swelling, calf tenderness Back exam: Present: normal inspection Neurological exam: Present: alert, oriented X3, CN II-XII intact Psychiatric exam: Present: normal affect Skin exam: Present: warm, dry, intact, normal color. Absent: rash Course Vital Signs 04/03/18 04/03/18 11:23 13:36 Temperature 98.7 F 98.7 F Pulse Rate 102 H 95 Respiratory 18 18 Rate Blood Pressure 136/79 132/76 O2 Sat by Pulse 98 99 Oximetry Medical Decision Making - Medical Decision Making 23-year-old female chief plain nausea vomiting since 4 AM. Took a Zofran at home with no relief.patient is given IV fluids labwork obtained. She is no significant tenderness on exam some epigastric mild tenderness. Patient lab work does show a decreasing Hgb to 8.4. She has been around this number for the past few emergency department visits. She is supposed to be taking iron but has not been taking this from her primary care provider. denies any bloody stools or bloody emesis. She is aware of this. Rest of labwork was reviewed and normal. Patient informed that she likely has gastritis or possibly GERD. She does feel better after receiving fluids and nausea medicine. Requested a home. Patient will be discharged at this time. Advised to follow-up with PCP. - Lab Data Result diagrams: 04/03/18 11:51 04/03/18 11:51 Lab Results 04/03/18 04/03/18 04/03/18 Range/Units 11:51 11:51 11:58 WBC 9.9 (3.8-10.6) k/uL RBC 4.82 (3.80-5.40) m/uL Hgb 8.7 L (11.4-16.0) gm/dL Hct 29.7 L (34.0-46.0) % MCV 61.6 L (80.0-100.0) fL MCH 18.0 L (25.0-35.0) pg MCHC 29.2 L (31.0-37.0) g/dL RDW 18.1 H (11.5-15.5) % Plt Count 460 H (150-450) k/uL Neutrophils % 69 % Lymphocytes % 21 % Monocytes % 5 % Eosinophils % 2 % Basophils % 0 % Neutrophils # 6.9 (1.3-7.7) k/uL Lymphocytes # 2.1 (1.0-4.8) k/uL Monocytes # 0.5 (0-1.0) k/uL Eosinophils # 0.2 (0-0.7) k/uL Basophils # 0.0 (0-0.2) k/uL Hypochromasia Marked Poikilocytosis Slight Anisocytosis Slight Microcytosis Marked Sodium 141 (137-145) mmol/L Potassium 4.0 (3.5-5.1) mmol/L Chloride 102 (98-107) mmol/L Carbon Dioxide 26 (22-30) mmol/L Anion Gap 13 mmol/L BUN 10 (7-17) mg/dL Creatinine 0.62 (0.52-1.04) mg/dL Est GFR (CKD-EPI)AfAm >90 (>60 ml/min/1.73 sqM) Est GFR (CKD-EPI)NonAf >90 (>60 ml/min/1.73 sqM) Glucose 152 H (74-99) mg/dL Calcium 9.0 (8.4-10.2) mg/dL Total Bilirubin 0.3 (0.2-1.3) mg/dL AST 67 H (14-36) U/L ALT 78 H (9-52) U/L Alkaline Phosphatase 58 (38-126) U/L Total Protein 7.1 (6.3-8.2) g/dL Albumin 3.9 (3.5-5.0) g/dL Amylase 48 (30-110) U/L Lipase 168 (23-300) U/L Urine Color Urine Appearance (Clear) Urine pH (5.0-8.0) Ur Specific [place] (1.001-1.035) Urine Protein (Negative) Urine Glucose (UA) (Negative) Urine Ketones (Negative) Urine Blood (Negative) Urine Nitrite (Negative) Urine Bilirubin (Negative) Urine Urobilinogen (<2.0) mg/dL Ur Leukocyte Esterase (Negative) Urine RBC (0-5) /hpf Urine WBC (0-5) /hpf Ur Squamous Epith Cells (0-4) /hpf Urine Bacteria (None) /hpf Urine Mucus (None) /hpf Urine HCG, Qual Not Detected (Not Detectd) 04/03/18 Range/Units 11:58 WBC (3.8-10.6) k/uL RBC (3.80-5.40) m/uL Hgb (11.4-16.0) gm/dL Hct (34.0-46.0) % MCV (80.0-100.0) fL MCH (25.0-35.0) pg MCHC (31.0-37.0) g/dL RDW (11.5-15.5) % Plt Count (150-450) k/uL Neutrophils % % Lymphocytes % % Monocytes % % Eosinophils % % Basophils % % Neutrophils # (1.3-7.7) k/uL Lymphocytes # (1.0-4.8) k/uL Monocytes # (0-1.0) k/uL Eosinophils # (0-0.7) k/uL Basophils # (0-0.2) k/uL Hypochromasia Poikilocytosis Anisocytosis Microcytosis Sodium (137-145) mmol/L Potassium (3.5-5.1) mmol/L Chloride (98-107) mmol/L Carbon Dioxide (22-30) mmol/L Anion Gap mmol/L BUN (7-17) mg/dL Creatinine (0.52-1.04) mg/dL Est GFR (CKD-EPI)AfAm (>60 ml/min/1.73 sqM) Est GFR (CKD-EPI)NonAf (>60 ml/min/1.73 sqM) Glucose (74-99) mg/dL Calcium (8.4-10.2) mg/dL Total Bilirubin (0.2-1.3) mg/dL AST (14-36) U/L ALT (9-52) U/L Alkaline Phosphatase (38-126) U/L Total Protein (6.3-8.2) g/dL Albumin (3.5-5.0) g/dL Amylase (30-110) U/L Lipase (23-300) U/L Urine Color Yellow Urine Appearance Cloudy H (Clear) Urine pH 6.5 (5.0-8.0) Ur Specific [place] 1.020 (1.001-1.035) Urine Protein Trace H (Negative) Urine Glucose (UA) Negative (Negative) Urine Ketones Negative (Negative) Urine Blood Negative (Negative) Urine Nitrite Negative (Negative) Urine Bilirubin Negative (Negative) Urine Urobilinogen <2.0 (<2.0) mg/dL Ur Leukocyte Esterase Negative (Negative) Urine RBC 9 H (0-5) /hpf Urine WBC 2 (0-5) /hpf Ur Squamous Epith Cells 17 H (0-4) /hpf Urine Bacteria Rare H (None) /hpf Urine Mucus Rare H (None) /hpf Urine HCG, Qual (Not Detectd) - Radiology Data Radiology results: report reviewed Nonspecific abdomen noted. Disposition Clinical Impression: Anemia, Gastroenteritis Disposition: HOME SELF-CARE Condition: Good Instructions: Acute Nausea and Vomiting in Children (ED) Additional Instructions: Patient has a follow-up with primary care provider. Return to the emergency department if any alarming signs or symptoms occur. Prescriptions: Metoclopramide [Reglan] 10 mg PO ACHS #12 tab Is patient prescribed a controlled substance at d/c from ED?: No If prescribed controlled substance>3 days was MAPS reviewed?: No When asked, does pt state using other controlled substances?: No Referrals: Gisella Smith MD [Primary Care Provider] - 1-2 days Time of Disposition: 13:16
[2018-04-03 12:08] LABS: Anisocytosis Slight; Basophils % (A) 0 %; Eosinophils # (A) 0.2 k/uL (0-0.7); Eosinophils % (A) 2 %; HCT 29.7 % (34.0-46.0); HGB 8.7 gm/dL (11.4-16.0); Hypochromasia Marked; Lymphocytes # (A) 2.1 k/uL (1.0-4.8); Lymphocytes % (A) 21 %; MCHC 29.2 g/dL (31.0-37.0); MCV 61.6 fL (80.0-100.0); Mean Platelet Volume 7.8; Microcytosis Marked; Monocytes # (A) 0.5 k/uL (0-1.0); Monocytes % (A) 5 %; Neutrophils # (A) 6.9 k/uL (1.3-7.7); Neutrophils % (A) 69 %; Platelet Count 460 k/uL (150-450); Poikilocytosis Slight; RBC 4.82 m/uL (3.80-5.40); RDW 18.1 % (11.5-15.5); WBC 9.9 k/uL (3.8-10.6)
[2018-04-03 12:10] LABS: Appearance,Urine Cloudy (Clear); Bacteria,Urine Rare /hpf; Bilirubin,Urine Negative (Negative); Blood,Urine Negative (Negative); Color,Urine Yellow; Glucose,Urine (UA) Negative (Negative); Ketones,Urine Negative (Negative); Leukocyte Esterase,Urine Negative (Negative); Mucus,Urine Rare /hpf; Nitrite,Urine Negative (Negative); PH, Urine 6.5 (5.0-8.0); Protein,Urine Trace (Negative); RBC,Urine 9 /hpf (0-5); Squamous Epithelial Cell,Urine 17 /hpf (0-4); Urobilinogen,Urine <2.0 mg/dL (<2.0); WBC,Urine 2 /hpf (0-5)
[2018-04-03 12:17] LABS: ALT 78 U/L (9-52); AST 67 U/L (14-36); Albumin 3.9 g/dL (3.5-5.0); Alkaline Phosphatase 58 U/L (38-126); Amylase 48 U/L (30-110); Anion Gap 13 mmol/L; Blood Urea Nitrogen 10 mg/dL (7-17); Carbon Dioxide 26 mmol/L (22-30); Chloride 102 mmol/L (98-107); Glucose 152 mg/dL (74-99); Lipase 168 U/L (23-300); Sodium 141 mmol/L (137-145); Total Bilirubin 0.3 mg/dL (0.2-1.3); Total Protein 7.1 g/dL (6.3-8.2)
--- NOTE | 2018-04-03 12:25 | XR ---
EXAMINATION TYPE: XR KUB DATE OF EXAM: 04/03/2018 COMPARISON: NONE HISTORY: Generalized abdominal pain TECHNIQUE: One view abdominal series FINDINGS: The osseous structures are intact. The bowel gas pattern is nonspecific. Lung bases are clear. IMPRESSION: 1. Nonspecific abdomen.
[2018-04-03 13:37] VITALS: BP 132/76; PULSE 95
== END 2018-04-03 13:37 | disposition home or self-care (01) ==
LOC: EC 11:12
DX: K52.9 Noninfective gastroenteritis and colitis, unspecified (principal); D64.9 Anemia, unspecified; M54.9 Dorsalgia, unspecified; J45.909 Unspecified asthma, uncomplicated; K21.9 Gastro-esophageal reflux disease without esophagitis; E07.9 Disorder of thyroid, unspecified; F32.9 Major depressive disorder, single episode, unspecified; F41.9 Anxiety disorder, unspecified; Z87.891 Personal history of nicotine dependence; Z79.899 Other long term (current) drug therapy; Z88.1 Allergy status to other antibiotic agents; Z88.6 Allergy status to analgesic agent; Z88.8 Allergy status to other drugs, medicaments and biological substances
CPT/HCPCS: 36415; 80053; 82150; 83690; 85025; 81001; 81025; 74018; 99284; 96374; 96375; 96361; J1200; J2765

== ENCOUNTER 2018-04-21 06:39 | Emergency (ER) | payer OTHER ==
[2018-04-21] MEDS ORDERED: FAMOTIDINE 20 MG/2 ML VIAL IV STA (08:01)
[2018-04-21] MEDS ORDERED: SODIUM CHLORIDE 0.9% 1,000 ML IV STA (08:01)
[2018-04-21] MEDS ORDERED: ONDANSETRON 4 MG/2 ML VIAL IVP STA (08:01)
--- NOTE | 2018-04-21 08:04 | ED ---
General Adult HPI - General Chief complaint: Nausea/Vomiting/Diarrhea Stated complaint: Vomiing/Diarrhea Time Seen by Provider: 04/21/18 07:41 Source: patient, RN notes reviewed Mode of arrival: ambulatory Limitations: no limitations - History of Present Illness Initial comments: Patient is a pleasant 23-year-old female presenting to the emergency Department with complaints of nausea vomiting and diarrhea. Patient woke up and felt nauseous all day yesterday. Around 5:30 this morning patient started vomiting and has vomited multiple times. Patient has also had multiple episodes of diarrhea. No abdominal pain. Patient still feels nauseated. No fevers. This is not a chronic problem however patient had similar symptoms a few weeks ago. Patient denies possible - Related Data Home Medications Medication Instructions Recorded Confirmed Loratadine [Claritin] 10 mg PO DAILY 02/05/16 04/21/18 FLUoxetine HCL [PROzac] 20 mg PO DAILY 08/12/17 04/21/18 Levothyroxine Sodium [Synthroid] 200 mcg PO DAILY 08/12/17 04/21/18 Montelukast Sodium [Singulair] 10 mg PO QAM 08/12/17 04/21/18 Omeprazole 40 mg PO HS 08/12/17 04/21/18 Levothyroxine Sodium [Synthroid] 25 mcg PO DAILY 04/03/18 04/21/18 Acetaminophen Tab [Tylenol Tab] 325 mg PO Q6H PRN 04/21/18 04/21/18 Previous Rx's Medication Instructions Recorded Ondansetron Odt [Zofran Odt] 4 mg PO Q8HR PRN #10 tab 04/21/18 Allergies Allergy/AdvReac Type Severity Reaction Status Date / Time benzonatate Allergy Rash/Hives Verified 04/21/18 07:31 [From Tessalon Perles] ibuprofen [From Motrin] Allergy KIDNEY PAIN Verified 04/21/18 07:31 sulfamethoxazole Allergy Rash/Hives Verified 04/21/18 07:31 [From Bactrim] trimethoprim [From Bactrim] Allergy Rash/Hives Verified 04/21/18 07:31 Review of Systems ROS Statement: Those systems with pertinent positive or pertinent negative responses have been documented in the HPI. ROS Other: All systems not noted in ROS Statement are negative. Constitutional: Denies: fever Eyes: Denies: eye pain ENT: Denies: ear pain Respiratory: Denies: cough Cardiovascular: Denies: chest pain Endocrine: Denies: fatigue Gastrointestinal: Reports: nausea, vomiting, diarrhea. Denies: abdominal pain Genitourinary: Denies: dysuria Musculoskeletal: Denies: back pain Skin: Denies: rash Neurological: Denies: weakness Past Medical History Past Medical History: Asthma, Diabetes Mellitus, GERD/Reflux, Thyroid Disorder Additional Past Medical History / Comment(s): anemia History of Any Multi-Drug Resistant Organisms: None Reported Past Surgical History: Adenoidectomy Additional Past Surgical History / Comment(s): Eye surgery Past Psychological History: Anxiety, Depression Smoking Status: Former smoker Past Alcohol Use History: Rare Past Drug Use History: Marijuana General Exam Limitations: no limitations General appearance: alert, in no apparent distress Head exam: Present: atraumatic Eye exam: Present: normal appearance Neck exam: Present: normal inspection Respiratory exam: Present: normal lung sounds bilaterally Cardiovascular Exam: Present: regular rate, normal rhythm GI/Abdominal exam: Present: soft. Absent: distended, tenderness, guarding, rebound, rigid Extremities exam: Present: normal inspection Neurological exam: Present: alert Psychiatric exam: Present: normal affect, normal mood Skin exam: Present: normal color Course Vital Signs 04/21/18 04/21/18 06:42 09:58 Temperature 97.8 F 98.2 F Pulse Rate 105 H 81 Respiratory 19 18 Rate Blood Pressure 135/83 139/78 O2 Sat by Pulse 100 100 Oximetry Medical Decision Making - Medical Decision Making Patient reevaluated and resting comfortably in bed. Patient does feel improved and is comfortable with discharge home. Patient states she does regularly see her doctor for anemia and liver enzymes. Patient is updated on results. - Lab Data Result diagrams: 04/21/18 06:55 04/21/18 06:55 Lab Results 04/21/18 04/21/18 04/21/18 Range/Units 06:55 06:55 08:25 WBC 11.8 H (3.8-10.6) k/uL RBC 5.16 (3.80-5.40) m/uL Hgb 9.2 L (11.4-16.0) gm/dL Hct 32.0 L (34.0-46.0) % MCV 62.0 L (80.0-100.0) fL MCH 17.8 L (25.0-35.0) pg MCHC 28.8 L (31.0-37.0) g/dL RDW 18.2 H (11.5-15.5) % Plt Count 502 H (150-450) k/uL Neutrophils % 61 % Lymphocytes % 28 % Monocytes % 6 % Eosinophils % 2 % Basophils % 1 % Neutrophils # 7.2 (1.3-7.7) k/uL Lymphocytes # 3.3 (1.0-4.8) k/uL Monocytes # 0.7 (0-1.0) k/uL Eosinophils # 0.3 (0-0.7) k/uL Basophils # 0.1 (0-0.2) k/uL Hypochromasia Marked Poikilocytosis Slight Anisocytosis Slight Microcytosis Marked Sodium 145 (137-145) mmol/L Potassium 4.4 (3.5-5.1) mmol/L Chloride 103 (98-107) mmol/L Carbon Dioxide 30 (22-30) mmol/L Anion Gap 12 mmol/L BUN 14 (7-17) mg/dL Creatinine 0.67 (0.52-1.04) mg/dL Est GFR (CKD-EPI)AfAm >90 (>60 ml/min/1.73 sqM) Est GFR (CKD-EPI)NonAf >90 (>60 ml/min/1.73 sqM) Glucose 108 H (74-99) mg/dL Calcium 9.5 (8.4-10.2) mg/dL Total Bilirubin 0.3 (0.2-1.3) mg/dL AST 53 H (14-36) U/L ALT 70 H (9-52) U/L Alkaline Phosphatase 56 (38-126) U/L Total Protein 7.5 (6.3-8.2) g/dL Albumin 4.1 (3.5-5.0) g/dL Amylase 52 (30-110) U/L Lipase 230 (23-300) U/L Urine Color Yellow Urine Appearance Cloudy H (Clear) Urine pH 6.5 (5.0-8.0) Ur Specific [place] 1.022 (1.001-1.035) Urine Protein Trace H (Negative) Urine Glucose (UA) Negative (Negative) Urine Ketones Negative (Negative) Urine Blood Large H (Negative) Urine Nitrite Negative (Negative) Urine Bilirubin Negative (Negative) Urine Urobilinogen <2.0 (<2.0) mg/dL Ur Leukocyte Esterase Negative (Negative) Urine RBC 64 H (0-5) /hpf Urine WBC 3 (0-5) /hpf Ur Squamous Epith Cells 4 (0-4) /hpf Urine Mucus Rare H (None) /hpf Disposition Clinical Impression: Acute vomiting, Diarrhea Disposition: HOME SELF-CARE Condition: Stable Instructions: Acute Nausea and Vomiting (ED), Acute Diarrhea (ED) Additional Instructions: [id number] Imodium if needed for diarrhea. Return for not tolerating fluids, fever, abdominal pain, worsening symptoms or other concerns. Prescriptions: Ondansetron Odt [Zofran Odt] 4 mg PO Q8HR PRN #10 tab PRN Reason: Nausea Is patient prescribed a controlled substance at d/c from ED?: No Referrals: Gisella Smith MD [Primary Care Provider] - 1-2 days Time of Disposition: 10:25
[2018-04-21 08:14] LABS: Anisocytosis Slight; Basophils # (A) 0.1 k/uL (0-0.2); Basophils % (A) 1 %; Eosinophils # (A) 0.3 k/uL (0-0.7); Eosinophils % (A) 2 %; HGB 9.2 gm/dL (11.4-16.0); Hypochromasia Marked; Lymphocytes # (A) 3.3 k/uL (1.0-4.8); Lymphocytes % (A) 28 %; MCH 17.8 pg (25.0-35.0); MCHC 28.8 g/dL (31.0-37.0); Mean Platelet Volume 7.1; Microcytosis Marked; Monocytes # (A) 0.7 k/uL (0-1.0); Monocytes % (A) 6 %; Neutrophils # (A) 7.2 k/uL (1.3-7.7); Neutrophils % (A) 61 %; Platelet Count 502 k/uL (150-450); Poikilocytosis Slight; RBC 5.16 m/uL (3.80-5.40); RDW 18.2 % (11.5-15.5); WBC 11.8 k/uL (3.8-10.6)
[2018-04-21 08:38] LABS: Appearance,Urine Cloudy (Clear); Bilirubin,Urine Negative (Negative); Blood,Urine Large (Negative); Color,Urine Yellow; Glucose,Urine (UA) Negative (Negative); Ketones,Urine Negative (Negative); Leukocyte Esterase,Urine Negative (Negative); Mucus,Urine Rare /hpf; Nitrite,Urine Negative (Negative); PH, Urine 6.5 (5.0-8.0); Protein,Urine Trace (Negative); RBC,Urine 64 /hpf (0-5); Specific Gravity,Urine 1.022 (1.001-1.035); Squamous Epithelial Cell,Urine 4 /hpf (0-4); Urobilinogen,Urine <2.0 mg/dL (<2.0); WBC,Urine 3 /hpf (0-5)
[2018-04-21 08:39] LABS: ALT 70 U/L (9-52); AST 53 U/L (14-36); Albumin 4.1 g/dL (3.5-5.0); Alkaline Phosphatase 56 U/L (38-126); Amylase 52 U/L (30-110); Anion Gap 12 mmol/L; Blood Urea Nitrogen 14 mg/dL (7-17); Calcium 9.5 mg/dL (8.4-10.2); Carbon Dioxide 30 mmol/L (22-30); Chloride 103 mmol/L (98-107); Glucose 108 mg/dL (74-99); Lipase 230 U/L (23-300); Potassium 4.4 mmol/L (3.5-5.1); Sodium 145 mmol/L (137-145); Total Bilirubin 0.3 mg/dL (0.2-1.3); Total Protein 7.5 g/dL (6.3-8.2)
[2018-04-21 10:03] VITALS: BP 139/78; PULSE 81; RESP 18; TEMP 98.2
[2018-04-21] MEDS ORDERED: LOPERAMIDE 2 MG CAP PO STA (10:23)
== END 2018-04-21 10:43 | disposition home or self-care (01) ==
LOC: EC 06:39
DX: R11.2 Nausea with vomiting, unspecified (principal); R19.7 Diarrhea, unspecified; J45.909 Unspecified asthma, uncomplicated; K21.9 Gastro-esophageal reflux disease without esophagitis; E07.9 Disorder of thyroid, unspecified; F32.9 Major depressive disorder, single episode, unspecified; F41.9 Anxiety disorder, unspecified; Z88.1 Allergy status to other antibiotic agents; Z88.2 Allergy status to sulfonamides; Z88.6 Allergy status to analgesic agent; Z88.8 Allergy status to other drugs, medicaments and biological substances; Z79.899 Other long term (current) drug therapy; Z87.891 Personal history of nicotine dependence
CPT/HCPCS: 99284; 96374; 96375; 96361; 36415; 80053; 82150; 83690; 85025; 81001; J2405

== ENCOUNTER 2018-05-20 09:36 | Emergency (ER) | payer OTHER ==
[2018-05-20 09:40] VITALS: BP 148/97; PULSE 87; RESP 20; TEMP 98.1
--- NOTE | 2018-05-20 10:16 | ED ---
Skin/Abscess/FB HPI - General Chief complaint: Skin/Abscess/Foreign Body Stated complaint: Bug Bite Time Seen by Provider: 05/20/18 09:49 Source: patient, RN notes reviewed, old records reviewed Mode of arrival: ambulatory Limitations: no limitations - History of Present Illness Initial comments: Patient is a 23-year-old female presented to emergency Department chief complaint of reaction to mosquito bite on the back of her forearm for the past 2 days. Patient reports that she has a bite over the posterior aspect of her upper arm. She reports that she was up all night scratching it. Patient states that she did take Benadryl yesterday evening. Patient states that she has not applied any creams over the area. Denies any other symptoms including fevers or chills.Patient denies any recent fever, chills, shortness of breath, chest pain, back pain, abdominal pain, nausea vomiting, numbness or tingling, dysuria or hematuria, constipation or diarrhea, headaches or visual changes, or any other current symptoms - Related Data Home Medications Medication Instructions Recorded Confirmed Loratadine [Claritin] 10 mg PO DAILY 02/05/16 04/21/18 FLUoxetine HCL [PROzac] 20 mg PO DAILY 08/12/17 04/21/18 Levothyroxine Sodium [Synthroid] 200 mcg PO DAILY 08/12/17 04/21/18 Montelukast Sodium [Singulair] 10 mg PO QAM 08/12/17 04/21/18 Omeprazole 40 mg PO HS 08/12/17 04/21/18 Levothyroxine Sodium [Synthroid] 25 mcg PO DAILY 04/03/18 04/21/18 Acetaminophen Tab [Tylenol Tab] 325 mg PO Q6H PRN 04/21/18 04/21/18 Previous Rx's Medication Instructions Recorded Ondansetron Odt [Zofran Odt] 4 mg PO Q8HR PRN #10 tab 04/21/18 Hydrocortisone Cream 1 applic TOPICAL QID #1 tube 05/20/18 [Hydrocortisone 2.5% Cream] Allergies Allergy/AdvReac Type Severity Reaction Status Date / Time benzonatate Allergy Rash/Hives Verified 05/20/18 09:40 [From Tessalon Perles] ibuprofen [From Motrin] Allergy KIDNEY PAIN Verified 05/20/18 09:40 sulfamethoxazole Allergy Rash/Hives Verified 05/20/18 09:40 [From Bactrim] trimethoprim [From Bactrim] Allergy Rash/Hives Verified 05/20/18 09:40 Review of Systems ROS Statement: Those systems with pertinent positive or pertinent negative responses have been documented in the HPI. ROS Other: All systems not noted in ROS Statement are negative. Past Medical History Past Medical History: Asthma, Diabetes Mellitus, GERD/Reflux, Thyroid Disorder Additional Past Medical History / Comment(s): anemia History of Any Multi-Drug Resistant Organisms: None Reported Past Surgical History: Adenoidectomy Additional Past Surgical History / Comment(s): Eye surgery Past Psychological History: Anxiety, Depression Smoking Status: Former smoker Past Alcohol Use History: Rare Past Drug Use History: Marijuana General Exam - General Exam Comments Initial Comments: This Patient is a 23-year-old female. Alert and oriented. No acute distress. Limitations: no limitations General appearance: alert, in no apparent distress Head exam: Present: atraumatic, normocephalic, normal inspection Eye exam: Present: normal appearance, PERRL, EOMI. Absent: scleral icterus, conjunctival injection, periorbital swelling ENT exam: Present: normal exam, mucous membranes moist Neck exam: Present: normal inspection. Absent: tenderness, meningismus, lymphadenopathy Respiratory exam: Present: normal lung sounds bilaterally. Absent: respiratory distress, wheezes, rales, rhonchi, stridor Cardiovascular Exam: Present: regular rate, normal rhythm, normal heart sounds. Absent: systolic murmur, diastolic murmur, rubs, gallop, clicks GI/Abdominal exam: Present: soft, normal bowel sounds. Absent: distended, tenderness, guarding, rebound, rigid Extremities exam: Present: normal inspection, full ROM, normal capillary refill. Absent: tenderness, pedal edema, joint swelling, calf tenderness Back exam: Present: normal inspection Neurological exam: Present: alert, oriented X3, CN II-XII intact Psychiatric exam: Present: normal affect, normal mood Skin exam: Present: warm, dry, intact, normal color, erythema (Vision is a 4 cm area of erythema over the posterior aspect of her left forearm. Is warm to touch. Irregular shape. Appears to be a localized ALLERGIC reaction to mosquito bite.). Absent: rash Course Vital Signs 05/20/18 09:38 Temperature 98.1 F Pulse Rate 87 Respiratory 20 Rate Blood Pressure 148/97 O2 Sat by Pulse 98 Oximetry Medical Decision Making - Medical Decision Making 23-year-old female just emergency department today chief complaint of right posterior arm erythema and swelling. Patient has what appears to be alert lies ALLERGIC reaction to mosquito bite. The area is irregular. I frank a line over the area. We'll put the Patient on hydrocortisone cream. Discussed if the area seems to be increasing or having any other symptoms she should follow-up with PCP or return here for further evaluation. Patient agrees to treatment plan will comply. Return parameters were discussed. We'll start the Patient on topical hydrocortisone cream. Disposition Clinical Impression: Bug bite of shoulder or upper arm Disposition: HOME SELF-CARE Condition: Good Instructions: Insect Bite or Sting (ED) Additional Instructions: Monitor the area, there is increased redness or swelling return for further evaluation. Apply hydrocortisone cream over the site are up-to-date. Return to emergency department if any alarming signs or symptoms occur. Prescriptions: Hydrocortisone Cream [Hydrocortisone 2.5% Cream] 1 applic TOPICAL QID #1 tube Is patient prescribed a controlled substance at d/c from ED?: No When asked, does pt state using other controlled substances?: No If prescribed controlled substance>3 days was MAPS reviewed?: No If opioid is for acute pain is fill amount 7 days or less?: No If Rx opioid, was Start Talking consent form obtained?: No Referrals: Gisella Smith MD [Primary Care Provider] - 1-2 days Time of Disposition: 10:14
== END 2018-05-20 10:23 | disposition home or self-care (01) ==
LOC: EC 09:36
DX: S50.862A Insect bite (nonvenomous) of left forearm, initial encounter (principal); J45.909 Unspecified asthma, uncomplicated; K21.9 Gastro-esophageal reflux disease without esophagitis; E07.9 Disorder of thyroid, unspecified; F32.9 Major depressive disorder, single episode, unspecified; F41.9 Anxiety disorder, unspecified; Z87.891 Personal history of nicotine dependence; Z79.899 Other long term (current) drug therapy; Z88.1 Allergy status to other antibiotic agents; Z88.6 Allergy status to analgesic agent; Z88.8 Allergy status to other drugs, medicaments and biological substances; W57.XXXA Bitten or stung by nonvenomous insect and other nonvenomous arthropods, initial encounter
CPT/HCPCS: 99282

== ENCOUNTER 2018-06-08 09:36 | Emergency (ER) | payer OTHER ==
[2018-06-08 09:41] VITALS: TEMP 98.4
[2018-06-08] MEDS ORDERED: SODIUM CHLORIDE 0.9% 1,000 ML IV STA (09:47)
[2018-06-08] MEDS ORDERED: SODIUM CHLORIDE 0.9% 500 ML IV STA (09:47)
[2018-06-08] MEDS ORDERED: ONDANSETRON 4 MG/2 ML VIAL IVP STA (09:47)
[2018-06-08 10:34] LABS: ALT 55 U/L (9-52); AST 42 U/L (14-36); Albumin 3.8 g/dL (3.5-5.0); Alkaline Phosphatase 56 U/L (38-126); Amylase 40 U/L (30-110); Anion Gap 6 mmol/L; Blood Urea Nitrogen 11 mg/dL (7-17); Calcium 9.1 mg/dL (8.4-10.2); Carbon Dioxide 27 mmol/L (22-30); Chloride 107 mmol/L (98-107); Glucose 144 mg/dL (74-99); Lipase 127 U/L (23-300); Potassium 4.3 mmol/L (3.5-5.1); Sodium 140 mmol/L (137-145); Total Bilirubin 0.2 mg/dL (0.2-1.3); Total Protein 7.1 g/dL (6.3-8.2)
[2018-06-08 10:36] LABS: Appearance,Urine Cloudy (Clear); Bacteria,Urine Rare /hpf; Bilirubin,Urine Negative (Negative); Blood,Urine Negative (Negative); Color,Urine Yellow; Glucose,Urine (UA) Negative (Negative); Ketones,Urine Negative (Negative); Leukocyte Esterase,Urine Trace (Negative); Mucus,Urine Rare /hpf; Nitrite,Urine Negative (Negative); PH, Urine 7.5 (5.0-8.0); Protein,Urine Trace (Negative); Specific Gravity,Urine 1.018 (1.001-1.035); Squamous Epithelial Cell,Urine 35 /hpf (0-4); Urobilinogen,Urine <2.0 mg/dL (<2.0); WBC,Urine 3 /hpf (0-5)
[2018-06-08 10:58] LABS: Anisocytosis Slight; Basophils % (A) 0 %; Eosinophils # (A) 0.4 k/uL (0-0.7); Eosinophils % (A) 3 %; HCT 29.1 % (34.0-46.0); HGB 8.4 gm/dL (11.4-16.0); Hypochromasia Marked; Lymphocytes # (A) 2.6 k/uL (1.0-4.8); Lymphocytes % (A) 23 %; MCH 17.4 pg (25.0-35.0); MCHC 28.8 g/dL (31.0-37.0); MCV 60.5 fL (80.0-100.0); Mean Platelet Volume 6.9; Microcytosis Marked; Monocytes # (A) 0.5 k/uL (0-1.0); Monocytes % (A) 5 %; Neutrophils # (A) 7.6 k/uL (1.3-7.7); Neutrophils % (A) 67 %; Platelet Count 450 k/uL (150-450); Poikilocytosis Slight; RBC 4.82 m/uL (3.80-5.40); RDW 17.4 % (11.5-15.5); WBC 11.3 k/uL (3.8-10.6)
--- NOTE | 2018-06-08 11:06 | ED ---
Nausea/Vomiting/Diarrhea HPI - General Chief complaint: Nausea/Vomiting/Diarrhea Stated complaint: Vomiting, diarrhea Time Seen by Provider: 06/08/18 09:42 Source: patient, RN notes reviewed Mode of arrival: ambulatory Limitations: no limitations - History of Present Illness Initial comments: This a 23-year-old female sent emergency Department chief complaint of nausea vomiting diarrhea. Patient states symptoms started late last night. Patient states that she is dry heaving at this time. Patient reports no fevers chills. She's had multiple episodes of diarrhea. Patient denies any back pain she states she has mild abdominal discomfort. She states that she had no sick contacts no bruit with some her symptoms. Patient denies any dysuria no hematuria no chance . - Related Data Home Medications Medication Instructions Recorded Confirmed Loratadine [Claritin] 10 mg PO DAILY 02/05/16 06/08/18 FLUoxetine HCL [PROzac] 20 mg PO DAILY 08/12/17 06/08/18 Levothyroxine Sodium [Synthroid] 200 mcg PO DAILY 08/12/17 06/08/18 Montelukast Sodium [Singulair] 10 mg PO QAM 08/12/17 06/08/18 Omeprazole 40 mg PO HS 08/12/17 06/08/18 Levothyroxine Sodium [Synthroid] 25 mcg PO DAILY 04/03/18 06/08/18 Acetaminophen Tab [Tylenol Tab] 325 mg PO Q6H PRN 04/21/18 06/08/18 Previous Rx's Medication Instructions Recorded Ondansetron Odt [Zofran Odt] 4 mg PO Q8HR PRN #10 tab 04/21/18 Hydrocortisone Cream 1 applic TOPICAL QID #1 tube 05/20/18 [Hydrocortisone 2.5% Cream] Ondansetron Odt [Zofran Odt] 4 mg PO Q8HR PRN #10 tab 06/08/18 Allergies Allergy/AdvReac Type Severity Reaction Status Date / Time benzonatate Allergy Rash/Hives Verified 06/08/18 09:48 [From Tessalon Perles] ibuprofen [From Motrin] Allergy KIDNEY PAIN Verified 06/08/18 09:48 sulfamethoxazole Allergy Rash/Hives Verified 06/08/18 09:48 [From Bactrim] trimethoprim [From Bactrim] Allergy Rash/Hives Verified 06/08/18 09:48 Review of Systems ROS Statement: Those systems with pertinent positive or pertinent negative responses have been documented in the HPI. ROS Other: All systems not noted in ROS Statement are negative. Past Medical History Past Medical History: Asthma, Diabetes Mellitus, GERD/Reflux, Thyroid Disorder Additional Past Medical History / Comment(s): anemia History of Any Multi-Drug Resistant Organisms: None Reported Past Surgical History: Adenoidectomy Additional Past Surgical History / Comment(s): Eye surgery Past Psychological History: Anxiety, Depression Smoking Status: Former smoker Past Alcohol Use History: Rare Past Drug Use History: Marijuana General Exam Limitations: no limitations General appearance: alert, in no apparent distress Head exam: Present: atraumatic, normocephalic, normal inspection Neck exam: Present: normal inspection. Absent: tenderness, meningismus, lymphadenopathy Respiratory exam: Present: normal lung sounds bilaterally. Absent: respiratory distress, wheezes, rales, rhonchi, stridor Cardiovascular Exam: Present: regular rate, normal rhythm, normal heart sounds. Absent: systolic murmur, diastolic murmur, rubs, gallop, clicks GI/Abdominal exam: Present: soft, tenderness (Mild diffuse), normal bowel sounds. Absent: distended, guarding, rebound, rigid Back exam: Absent: CVA tenderness (R), CVA tenderness (L) Course Vital Signs 06/08/18 09:39 Temperature 98.4 F Pulse Rate 105 H Respiratory 20 Rate Blood Pressure 134/73 O2 Sat by Pulse 96 Oximetry Medical Decision Making - Medical Decision Making 23-year-old female presented for nausea vomiting diarrhea. Patient lab work was hydrated given antiemetics. She does feel improved at this time lab work is unremarkable. Patient is scheduled [place] will be discharged. - Lab Data Result diagrams: 06/08/18 10:14 06/08/18 10:14 Lab Results 06/08/18 06/08/18 06/08/18 Range/Units 10:14 10:14 10:14 WBC 11.3 H (3.8-10.6) k/uL RBC 4.82 (3.80-5.40) m/uL Hgb 8.4 L (11.4-16.0) gm/dL Hct 29.1 L (34.0-46.0) % MCV 60.5 L (80.0-100.0) fL MCH 17.4 L (25.0-35.0) pg MCHC 28.8 L (31.0-37.0) g/dL RDW 17.4 H (11.5-15.5) % Plt Count 450 (150-450) k/uL Neutrophils % 67 % Lymphocytes % 23 % Monocytes % 5 % Eosinophils % 3 % Basophils % 0 % Neutrophils # 7.6 (1.3-7.7) k/uL Lymphocytes # 2.6 (1.0-4.8) k/uL Monocytes # 0.5 (0-1.0) k/uL Eosinophils # 0.4 (0-0.7) k/uL Basophils # 0.0 (0-0.2) k/uL Manual Slide Review Performed Large Platelets Present Hypochromasia Marked Poikilocytosis Slight Anisocytosis Slight Microcytosis Marked Sodium 140 (137-145) mmol/L Potassium 4.3 (3.5-5.1) mmol/L Chloride 107 (98-107) mmol/L Carbon Dioxide 27 (22-30) mmol/L Anion Gap 6 mmol/L BUN 11 (7-17) mg/dL Creatinine 0.60 (0.52-1.04) mg/dL Est GFR (CKD-EPI)AfAm >90 (>60 ml/min/1.73 sqM) Est GFR (CKD-EPI)NonAf >90 (>60 ml/min/1.73 sqM) Glucose 144 H (74-99) mg/dL Calcium 9.1 (8.4-10.2) mg/dL Total Bilirubin 0.2 (0.2-1.3) mg/dL AST 42 H (14-36) U/L ALT 55 H (9-52) U/L Alkaline Phosphatase 56 (38-126) U/L Total Protein 7.1 (6.3-8.2) g/dL Albumin 3.8 (3.5-5.0) g/dL Amylase 40 (30-110) U/L Lipase 127 (23-300) U/L Urine Color Urine Appearance (Clear) Urine pH (5.0-8.0) Ur Specific [place] (1.001-1.035) Urine Protein (Negative) Urine Glucose (UA) (Negative) Urine Ketones (Negative) Urine Blood (Negative) Urine Nitrite (Negative) Urine Bilirubin (Negative) Urine Urobilinogen (<2.0) mg/dL Ur Leukocyte Esterase (Negative) Urine WBC (0-5) /hpf Ur Squamous Epith Cells (0-4) /hpf Urine Bacteria (None) /hpf Urine Mucus (None) /hpf Urine HCG, Qual Not Detected (Not Detectd) 06/08/18 Range/Units 10:14 WBC (3.8-10.6) k/uL RBC (3.80-5.40) m/uL Hgb (11.4-16.0) gm/dL Hct (34.0-46.0) % MCV (80.0-100.0) fL MCH (25.0-35.0) pg MCHC (31.0-37.0) g/dL RDW (11.5-15.5) % Plt Count (150-450) k/uL Neutrophils % % Lymphocytes % % Monocytes % % Eosinophils % % Basophils % % Neutrophils # (1.3-7.7) k/uL Lymphocytes # (1.0-4.8) k/uL Monocytes # (0-1.0) k/uL Eosinophils # (0-0.7) k/uL Basophils # (0-0.2) k/uL Manual Slide Review Large Platelets Hypochromasia Poikilocytosis Anisocytosis Microcytosis Sodium (137-145) mmol/L Potassium (3.5-5.1) mmol/L Chloride (98-107) mmol/L Carbon Dioxide (22-30) mmol/L Anion Gap mmol/L BUN (7-17) mg/dL Creatinine (0.52-1.04) mg/dL Est GFR (CKD-EPI)AfAm (>60 ml/min/1.73 sqM) Est GFR (CKD-EPI)NonAf (>60 ml/min/1.73 sqM) Glucose (74-99) mg/dL Calcium (8.4-10.2) mg/dL Total Bilirubin (0.2-1.3) mg/dL AST (14-36) U/L ALT (9-52) U/L Alkaline Phosphatase (38-126) U/L Total Protein (6.3-8.2) g/dL Albumin (3.5-5.0) g/dL Amylase (30-110) U/L Lipase (23-300) U/L Urine Color Yellow Urine Appearance Cloudy H (Clear) Urine pH 7.5 (5.0-8.0) Ur Specific [place] 1.018 (1.001-1.035) Urine Protein Trace H (Negative) Urine Glucose (UA) Negative (Negative) Urine Ketones Negative (Negative) Urine Blood Negative (Negative) Urine Nitrite Negative (Negative) Urine Bilirubin Negative (Negative) Urine Urobilinogen <2.0 (<2.0) mg/dL Ur Leukocyte Esterase Trace H (Negative) Urine WBC 3 (0-5) /hpf Ur Squamous Epith Cells 35 H (0-4) /hpf Urine Bacteria Rare H (None) /hpf Urine Mucus Rare H (None) /hpf Urine HCG, Qual (Not Detectd) Disposition Clinical Impression: Gastroenteritis Disposition: HOME SELF-CARE Condition: Stable Instructions: Gastroenteritis (ED) Additional Instructions: Please return to the Emergency Department if symptoms worsen or any other concerns. Prescriptions: Ondansetron Odt [Zofran Odt] 4 mg PO Q8HR PRN #10 tab PRN Reason: Nausea Is patient prescribed a controlled substance at d/c from ED?: No Referrals: Gisella Smith MD [Primary Care Provider] - 1-2 days Time of Disposition: 11:23
[2018-06-08 11:19] LABS: Large Platelets Present
[2018-06-08 11:37] VITALS: BP 116/56; PULSE 84; RESP 18
== END 2018-06-08 11:37 | disposition home or self-care (01) ==
LOC: EC 09:36
DX: K52.9 Noninfective gastroenteritis and colitis, unspecified (principal); J45.909 Unspecified asthma, uncomplicated; K21.9 Gastro-esophageal reflux disease without esophagitis; E07.9 Disorder of thyroid, unspecified; F41.9 Anxiety disorder, unspecified; F32.9 Major depressive disorder, single episode, unspecified; Z88.1 Allergy status to other antibiotic agents; Z88.2 Allergy status to sulfonamides; Z88.6 Allergy status to analgesic agent; Z88.8 Allergy status to other drugs, medicaments and biological substances; Z79.899 Other long term (current) drug therapy; Z87.891 Personal history of nicotine dependence
CPT/HCPCS: 36415; 80053; 81001; 81025; 82150; 83690; 85025; 96361; 96374; 99284

== ENCOUNTER → 2018-06-12 | Outpatient (CLI) | payer OTHER ==
--- NOTE | 2018-06-12 08:58 | US ---
EXAMINATION TYPE: US abdomen complete DATE OF EXAM: 06/12/2018 COMPARISON: CT 09/15/2017, 02/04/2017 CLINICAL HISTORY: K76.0 fatty liver, R94.5 Abnormal results of. EXAM MEASUREMENTS: Liver Length: 20.8 cm Gallbladder Wall: 0.2 cm CBD: 0.4 cm Spleen: 14.2 cm Right Kidney: 11.1 x 4.3 x 4.9 cm Left Kidney: 11.5 x 4.7 x 4.1 cm Pancreas: Tail obscured by overlying bowel gas, visualized portions appear wnl Liver: Enlarged, echogenic in comparison with the kidney Gallbladder: wnl Evidence for sonographic Levi's sign: No CBD: wnl Spleen: wnl Right Kidney: No hydronephrosis or masses seen Left Kidney: No hydronephrosis or masses seen Upper IVC: wnl Abd Aorta: wnl The intrahepatic portion of the IVC and proximal abdominal aorta are within normal limits. There is no evidence of cholelithiasis. Common bile duct is unremarkable. The visualized portions of the per[place] creas are homogenous. The spleen is unremarkable. Kidneys are symmetric and free of hydronephrosis. No renal lesions are seen. IMPRESSION: Redemonstration of hepatosplenomegaly although the liver measures smaller than on the exa m of 2017. Sonographic findings of mild hepatic steatosis are again noted, improved from the prior.
== END | disposition home or self-care (01) ==
LOC: RADUSWWP 08:14
PROVIDERS: ATTEND Family Medicine
DX: K76.0 Fatty (change of) liver, not elsewhere classified (principal); R16.2 Hepatomegaly with splenomegaly, not elsewhere classified
CPT/HCPCS: 76700

== ENCOUNTER 2018-09-03 09:24 | Emergency (ER) | payer OTHER ==
[2018-09-03] MEDS ORDERED: KETOROLAC 30 MG/ML 1 ML VIAL IVP STA (09:55)
[2018-09-03] MEDS ORDERED: SODIUM CHLORIDE 0.9% 1,000 ML IV STA (09:55)
[2018-09-03] MEDS ORDERED: ONDANSETRON 4 MG/2 ML VIAL IVP STA (09:55)
--- NOTE | 2018-09-03 10:56 | ED ---
Nausea/Vomiting/Diarrhea HPI - General Chief complaint: Nausea/Vomiting/Diarrhea Stated complaint: Nausea Time Seen by Provider: 09/03/18 09:38 Source: patient, RN notes reviewed, old records reviewed Mode of arrival: ambulatory Limitations: no limitations - History of Present Illness Initial comments: Patient is a 23-year-old female presents emergency department today with chief complaint of abdominal pain, cramping. Patient's A she's had episodes of diarrhea. Patient denies any recent fevers or chills. She denies any back pain. Patient states that she has had a recent separation from her and his been under a lot of stress. She's able to eat well. Patient denies any previous surgical history of her abdomen. - Related Data Home Medications Medication Instructions Recorded Confirmed Loratadine [Claritin] 10 mg PO DAILY 02/05/16 09/03/18 FLUoxetine HCL [PROzac] 20 mg PO DAILY 08/12/17 09/03/18 Levothyroxine Sodium [Synthroid] 200 mcg PO DAILY 08/12/17 09/03/18 Omeprazole 40 mg PO HS 08/12/17 09/03/18 Acetaminophen Tab [Tylenol Tab] 325 mg PO Q6H PRN 04/21/18 09/03/18 Albuterol Inhaler [Ventolin Hfa 2 puff INHALATION RT-Q6H PRN 09/03/18 09/03/18 Inhaler] Beclomethasone Dipropionate [Qvar 2 puff INHALATION RT-BID 09/03/18 09/03/18 80 mcg] Previous Rx's Medication Instructions Recorded Ferrous Sulfate [Iron] 325 mg PO DAILY #20 tablet 09/03/18 Loperamide [Imodium] 2 mg PO DAILY #10 cap 09/03/18 Ondansetron Odt [Zofran Odt] 4 mg PO Q8HR PRN #12 tab 09/03/18 Allergies Allergy/AdvReac Type Severity Reaction Status Date / Time benzonatate Allergy Rash/Hives Verified 09/03/18 09:36 [From Tessalon Perles] ibuprofen [From Motrin] Allergy KIDNEY PAIN Verified 09/03/18 09:36 sulfamethoxazole Allergy Rash/Hives Verified 09/03/18 09:36 [From Bactrim] trimethoprim [From Bactrim] Allergy Rash/Hives Verified 09/03/18 09:36 metoclopramide [From Reglan] AdvReac ANXIETY Verified 09/03/18 10:39 Review of Systems ROS Statement: Those systems with pertinent positive or pertinent negative responses have been documented in the HPI. ROS Other: All systems not noted in ROS Statement are negative. Past Medical History Past Medical History: Asthma, Diabetes Mellitus, GERD/Reflux, Thyroid Disorder Additional Past Medical History / Comment(s): anemia History of Any Multi-Drug Resistant Organisms: None Reported Past Surgical History: Adenoidectomy Additional Past Surgical History / Comment(s): Eye surgery Past Psychological History: Anxiety, Depression Smoking Status: Former smoker Past Alcohol Use History: Rare Past Drug Use History: Marijuana General Exam - General Exam Comments Initial Comments: 23-year-old female. Patient is morbidly obese. Patient appears in no acute distress. Limitations: no limitations General appearance: alert, in no apparent distress Head exam: Present: atraumatic, normocephalic, normal inspection Eye exam: Present: normal appearance, PERRL, EOMI. Absent: scleral icterus, conjunctival injection, periorbital swelling ENT exam: Present: normal exam, mucous membranes moist Neck exam: Present: normal inspection. Absent: tenderness, meningismus, lymphadenopathy Respiratory exam: Present: normal lung sounds bilaterally. Absent: respiratory distress, wheezes, rales, rhonchi, stridor Cardiovascular Exam: Present: regular rate, normal rhythm, normal heart sounds. Absent: systolic murmur, diastolic murmur, rubs, gallop, clicks GI/Abdominal exam: Present: soft, normal bowel sounds, other (Protuberant abdomen. No focal tenderness.). Absent: distended, guarding, rebound, rigid Extremities exam: Present: normal inspection, full ROM, normal capillary refill. Absent: tenderness, pedal edema, joint swelling, calf tenderness Back exam: Present: normal inspection Neurological exam: Present: alert, oriented X3, CN II-XII intact Psychiatric exam: Present: normal affect, normal mood Skin exam: Present: warm, dry, intact, normal color. Absent: rash Course Vital Signs 09/03/18 09:34 Temperature 98.1 F Pulse Rate 67 Respiratory 20 Rate Blood Pressure 130/69 O2 Sat by Pulse 97 Oximetry Medical Decision Making - Medical Decision Making 23-year-old female present to return to the acute complaint of nausea and a few episodes of diarrhea and abdominal cramping. At this time Patient has no focal abdominal tenderness. Vital signs are stable. Patient given IV fluids labwork obtained. Patient's lab work does show evidence of chronic anemia. Patient's hemoglobin was 8.4 and her last check. States 8.6. She denies a significantly this time bloody stools. Discussed likely chronic anemia from vaginal bleeding. I discussed that she needs to be on iron supplements. Discussed that this time patient's tympanic symptoms are most likely related to gastritis. We'll discharge the Patient with a prescription for Zofran and Imodium and iron supplements. Discussed return parameters and close follow-up with primary care provider. Patient agrees to treatment plan will comply. Return parameters were discussed. - Lab Data Result diagrams: 09/03/18 10:10 09/03/18 10:10 Lab Results 09/03/18 09/03/18 09/03/18 Range/Units 10:10 10:10 10:10 WBC 8.6 (3.8-10.6) k/uL RBC 4.70 (3.80-5.40) m/uL Hgb 8.6 L (11.4-16.0) gm/dL Hct 30.0 L (34.0-46.0) % MCV 63.9 L (80.0-100.0) fL MCH 18.2 L (25.0-35.0) pg MCHC 28.5 L (31.0-37.0) g/dL RDW 18.8 H (11.5-15.5) % Plt Count 403 (150-450) k/uL Neutrophils % 64 % Lymphocytes % 27 % Monocytes % 5 % Eosinophils % 2 % Basophils % 1 % Neutrophils # 5.5 (1.3-7.7) k/uL Lymphocytes # 2.4 (1.0-4.8) k/uL Monocytes # 0.4 (0-1.0) k/uL Eosinophils # 0.2 (0-0.7) k/uL Basophils # 0.0 (0-0.2) k/uL Hypochromasia Marked Anisocytosis Slight Microcytosis Marked Sodium 140 (137-145) mmol/L Potassium 4.5 (3.5-5.1) mmol/L Chloride 108 H (98-107) mmol/L Carbon Dioxide 24 (22-30) mmol/L Anion Gap 8 mmol/L BUN 13 (7-17) mg/dL Creatinine 0.71 (0.52-1.04) mg/dL Est GFR (CKD-EPI)AfAm >90 (>60 ml/min/1.73 sqM) Est GFR (CKD-EPI)NonAf >90 (>60 ml/min/1.73 sqM) Glucose 98 (74-99) mg/dL Calcium 9.0 (8.4-10.2) mg/dL Total Bilirubin 0.3 (0.2-1.3) mg/dL AST 23 (14-36) U/L ALT 33 (9-52) U/L Alkaline Phosphatase 51 (38-126) U/L Total Protein 7.0 (6.3-8.2) g/dL Albumin 3.5 (3.5-5.0) g/dL Amylase 38 (30-110) U/L Lipase 158 (23-300) U/L Urine Color Urine Appearance (Clear) Urine pH (5.0-8.0) Ur Specific Pilger (1.001-1.035) Urine Protein (Negative) Urine Glucose (UA) (Negative) Urine Ketones (Negative) Urine Blood (Negative) Urine Nitrite (Negative) Urine Bilirubin (Negative) Urine Urobilinogen (<2.0) mg/dL Ur Leukocyte Esterase (Negative) Urine HCG, Qual Not Detected (Not Detectd) 09/03/18 Range/Units 10:10 WBC (3.8-10.6) k/uL RBC (3.80-5.40) m/uL Hgb (11.4-16.0) gm/dL Hct (34.0-46.0) % MCV (80.0-100.0) fL MCH (25.0-35.0) pg MCHC (31.0-37.0) g/dL RDW (11.5-15.5) % Plt Count (150-450) k/uL Neutrophils % % Lymphocytes % % Monocytes % % Eosinophils % % Basophils % % Neutrophils # (1.3-7.7) k/uL Lymphocytes # (1.0-4.8) k/uL Monocytes # (0-1.0) k/uL Eosinophils # (0-0.7) k/uL Basophils # (0-0.2) k/uL Hypochromasia Anisocytosis Microcytosis Sodium (137-145) mmol/L Potassium (3.5-5.1) mmol/L Chloride (98-107) mmol/L Carbon Dioxide (22-30) mmol/L Anion Gap mmol/L BUN (7-17) mg/dL Creatinine (0.52-1.04) mg/dL Est GFR (CKD-EPI)AfAm (>60 ml/min/1.73 sqM) Est GFR (CKD-EPI)NonAf (>60 ml/min/1.73 sqM) Glucose (74-99) mg/dL Calcium (8.4-10.2) mg/dL Total Bilirubin (0.2-1.3) mg/dL AST (14-36) U/L ALT (9-52) U/L Alkaline Phosphatase (38-126) U/L Total Protein (6.3-8.2) g/dL Albumin (3.5-5.0) g/dL Amylase (30-110) U/L Lipase (23-300) U/L Urine Color Light Yellow Urine Appearance Clear (Clear) Urine pH 5.5 (5.0-8.0) Ur Specific Pilger 1.011 (1.001-1.035) Urine Protein Negative (Negative) Urine Glucose (UA) Negative (Negative) Urine Ketones Negative (Negative) Urine Blood Negative (Negative) Urine Nitrite Negative (Negative) Urine Bilirubin Negative (Negative) Urine Urobilinogen <2.0 (<2.0) mg/dL Ur Leukocyte Esterase Negative (Negative) Urine HCG, Qual (Not Detectd) Disposition Clinical Impression: Gastritis, Anemia Disposition: HOME SELF-CARE Condition: Good Additional Instructions: Patient is to have is a close follow-up with primary care physician. Return to emergency department if any alarming signs or symptoms occur. Prescriptions: Ferrous Sulfate [Iron] 325 mg PO DAILY #20 tablet Loperamide [Imodium] 2 mg PO DAILY #10 cap Ondansetron Odt [Zofran Odt] 4 mg PO Q8HR PRN #12 tab PRN Reason: Nausea Is patient prescribed a controlled substance at d/c from ED?: No Referrals: Gisella Smith MD [Primary Care Provider] - 1-2 days Time of Disposition: 11:44
[2018-09-03 11:05] LABS: Appearance,Urine Clear (Clear); Bilirubin,Urine Negative (Negative); Blood,Urine Negative (Negative); Color,Urine Light Yellow; Glucose,Urine (UA) Negative (Negative); Ketones,Urine Negative (Negative); Leukocyte Esterase,Urine Negative (Negative); Nitrite,Urine Negative (Negative); PH, Urine 5.5 (5.0-8.0); Protein,Urine Negative (Negative); Specific Gravity,Urine 1.011 (1.001-1.035); Urobilinogen,Urine <2.0 mg/dL (<2.0)
[2018-09-03 11:17] LABS: ALT 33 U/L (9-52); AST 23 U/L (14-36); Albumin 3.5 g/dL (3.5-5.0); Alkaline Phosphatase 51 U/L (38-126); Amylase 38 U/L (30-110); Anion Gap 8 mmol/L; Blood Urea Nitrogen 13 mg/dL (7-17); Carbon Dioxide 24 mmol/L (22-30); Chloride 108 mmol/L (98-107); Glucose 98 mg/dL (74-99); Lipase 158 U/L (23-300); Potassium 4.5 mmol/L (3.5-5.1); Sodium 140 mmol/L (137-145); Total Bilirubin 0.3 mg/dL (0.2-1.3)
[2018-09-03 11:21] LABS: Anisocytosis Slight; Basophils % (A) 1 %; Eosinophils # (A) 0.2 k/uL (0-0.7); Eosinophils % (A) 2 %; HGB 8.6 gm/dL (11.4-16.0); Hypochromasia Marked; Lymphocytes # (A) 2.4 k/uL (1.0-4.8); Lymphocytes % (A) 27 %; MCH 18.2 pg (25.0-35.0); MCHC 28.5 g/dL (31.0-37.0); MCV 63.9 fL (80.0-100.0); Mean Platelet Volume 6.7; Microcytosis Marked; Monocytes # (A) 0.4 k/uL (0-1.0); Monocytes % (A) 5 %; Neutrophils # (A) 5.5 k/uL (1.3-7.7); Neutrophils % (A) 64 %; Platelet Count 403 k/uL (150-450); RDW 18.8 % (11.5-15.5); WBC 8.6 k/uL (3.8-10.6)
[2018-09-03 12:15] VITALS: BP 122/83; PULSE 61; RESP 19; TEMP 97.8
== END 2018-09-03 12:15 | disposition home or self-care (01) ==
LOC: EC 09:24
DX: K29.70 Gastritis, unspecified, without bleeding (principal); D64.9 Anemia, unspecified; R19.7 Diarrhea, unspecified; J45.909 Unspecified asthma, uncomplicated; K21.9 Gastro-esophageal reflux disease without esophagitis; E07.9 Disorder of thyroid, unspecified; F41.9 Anxiety disorder, unspecified; F32.9 Major depressive disorder, single episode, unspecified; Z87.891 Personal history of nicotine dependence; Z79.51 Long term (current) use of inhaled steroids; Z79.899 Other long term (current) drug therapy; Z88.8 Allergy status to other drugs, medicaments and biological substances; Z88.6 Allergy status to analgesic agent; Z88.2 Allergy status to sulfonamides
CPT/HCPCS: 99284; 96374; 96375; 96361; 36415; 80053; 82150; 83690; 85025; 81003; 81025; J2405; J1885

== ENCOUNTER 2018-11-17 17:45 | Emergency (ER) | payer OTHER ==
[2018-11-17 18:09] VITALS: BP 127/89; PULSE 95; RESP 18; TEMP 98.4
[2018-11-17] MEDS ORDERED: ONDANSETRON 4 MG ODT STARTER PACK 2 TAB BTL PO STA (19:25)
[2018-11-17] MEDS ORDERED: MECLIZINE 12.5 MG TAB PO STA (19:25)
--- NOTE | 2018-11-17 19:32 | ED ---
URI HPI - General Chief Complaint: Upper Respiratory Infection Stated Complaint: Fever/dizzy Time Seen by Provider: 11/17/18 19:06 Source: patient, RN notes reviewed, old records reviewed Mode of arrival: ambulatory Limitations: no limitations - History of Present Illness Initial Comments: This Patient is a 23-year-old female presents emergency department today with chief complaint of cough, ear pain and dizziness. Patient reports that she feels that she has a fullness and popping within her ears. She's been having the symptoms for the past 2 weeks. Patient states that she has had nasal drainage and sinus pressure and migraine-like headaches. Patient reports that she's been trying [id number] medication for the past 2 weeks with very minimal relief. She is a former smoker. She denies any recent fevers or chills per acute have a fever earlier this week. She denies chest pain, shortness of breath. - Related Data Home Medications Medication Instructions Recorded Confirmed Loratadine [Claritin] 10 mg PO DAILY 02/05/16 11/17/18 Levothyroxine Sodium [Synthroid] 200 mcg PO DAILY 08/12/17 11/17/18 Omeprazole 40 mg PO HS 08/12/17 11/17/18 Hydrochlorothiazide 12.5 mg PO DAILY 11/17/18 11/17/18 Levothyroxine Sodium [Synthroid] 50 mcg PO DAILY 11/17/18 11/17/18 Montelukast [Singulair] 10 mg PO DAILY 11/17/18 11/17/18 glipiZIDE [Glucotrol] 5 mg PO AC-BRKFST 11/17/18 11/17/18 Previous Rx's Medication Instructions Recorded Azithromycin [Zithromax Z-pack] 250 mg PO DIRECTED #6 tab 11/17/18 Fluticasone Propionate [Flonase 1 spray EA NOSTRIL TID #1 bottle 11/17/18 Allergy Relief] Loratadine-Pseudoeph 5-120 mg 1 each PO Q12HR #20 tab 11/17/18 [Claritin-D 12 HR] Meclizine [Antivert] 25 mg PO TID #15 tab 11/17/18 Allergies Allergy/AdvReac Type Severity Reaction Status Date / Time benzonatate Allergy Rash/Hives Verified 11/17/18 19:18 [From Moira Sullivan] ibuprofen [From Motrin] Allergy KIDNEY PAIN Verified 11/17/18 19:18 sulfamethoxazole Allergy Rash/Hives Verified 11/17/18 19:18 [From Bactrim] trimethoprim [From Bactrim] Allergy Rash/Hives Verified 11/17/18 19:18 metoclopramide [From Reglan] AdvReac ANXIETY Verified 11/17/18 19:18 Review of Systems ROS Statement: Those systems with pertinent positive or pertinent negative responses have been documented in the HPI. ROS Other: All systems not noted in ROS Statement are negative. Past Medical History Past Medical History: Asthma, Diabetes Mellitus, GERD/Reflux, Thyroid Disorder Additional Past Medical History / Comment(s): anemia History of Any Multi-Drug Resistant Organisms: None Reported Past Surgical History: Adenoidectomy Additional Past Surgical History / Comment(s): Eye surgery Past Psychological History: Anxiety, Depression Smoking Status: Former smoker Past Alcohol Use History: Occasional Past Drug Use History: Marijuana General Exam - General Exam Comments Initial Comments: 23-year-old female. Alert and oriented. Patient appears in no acute distress. Limitations: no limitations General appearance: alert, in no apparent distress Head exam: Present: atraumatic, normocephalic, normal inspection Eye exam: Present: normal appearance, PERRL, EOMI. Absent: scleral icterus, conjunctival injection, periorbital swelling ENT exam: Present: normal exam, mucous membranes moist, other (Maxillary sinus tenderness). Absent: normal oropharynx (Erythematous oropharynx.), TM's normal bilaterally (Patient has evidence of effusion within the right TM. Erythematous TM. Tenderness over tragus. No mastoid tenderness.) Neck exam: Present: normal inspection. Absent: tenderness, meningismus, lymphadenopathy Respiratory exam: Present: normal lung sounds bilaterally Cardiovascular Exam: Present: regular rate, normal rhythm, normal heart sounds. Absent: systolic murmur, diastolic murmur, rubs, gallop, clicks GI/Abdominal exam: Present: soft Extremities exam: Present: normal inspection, full ROM, normal capillary refill. Absent: tenderness, pedal edema, joint swelling, calf tenderness Back exam: Present: normal inspection Neurological exam: Present: alert, oriented X3, CN II-XII intact Psychiatric exam: Present: normal affect, normal mood Course Vital Signs 11/17/18 18:05 Temperature 98.4 F Pulse Rate 95 Respiratory 18 Rate Blood Pressure 127/89 O2 Sat by Pulse 99 Oximetry Medical Decision Making - Medical Decision Making This Patient is a 23-year-old female who presents emergency room today with upper respiratory congestion 2 weeks. She has erythematous right TM with evidence of effusion. She plans of dizziness. Patient does have evidence of effusion. Symptoms seemed similar to vertigo due to patient's congestion. ShE AGREES, and complians of maxillary Sinus tenderness. Treat the Patient for sinusitis and otitis with azithromycin, and discharge her with meclizine and decongestant medicine. Discussed close follow-up with primary care physician. QUESTIONS ANSWERERS. Disposition Clinical Impression: Acute sinusitis, Otitis, Vertigo Disposition: HOME SELF-CARE Condition: Good Instructions: Upper Respiratory Infection (ED), Vertigo (ED) Additional Instructions: Patient has a close follow-up with primary care physician. Take medications as prescribed. Rest, remain hydrated. Return to emergency department if any alarming signs or symptoms occur. Prescriptions: Azithromycin [Zithromax Z-pack] 250 mg PO DIRECTED #6 tab Fluticasone Propionate [Flonase Allergy Relief] 1 spray EA NOSTRIL TID #1 bottle Loratadine-Pseudoeph 5-120 mg [Claritin-D 12 HR] 1 each PO Q12HR #20 tab Meclizine [Antivert] 25 mg PO TID #15 tab Is patient prescribed a controlled substance at d/c from ED?: No Referrals: Gisella Smith MD [Primary Care Provider] - 1-2 days Time of Disposition: 19:29
== END 2018-11-17 19:45 | disposition home or self-care (01) ==
LOC: EC 17:45
DX: J01.90 Acute sinusitis, unspecified (principal); R42 Dizziness and giddiness; H65.91 Unspecified nonsuppurative otitis media, right ear; J45.909 Unspecified asthma, uncomplicated; E11.9 Type 2 diabetes mellitus without complications; K21.9 Gastro-esophageal reflux disease without esophagitis; E07.9 Disorder of thyroid, unspecified; Z87.891 Personal history of nicotine dependence; Z79.84 Long term (current) use of oral hypoglycemic drugs; Z79.899 Other long term (current) drug therapy; Z88.6 Allergy status to analgesic agent; Z88.1 Allergy status to other antibiotic agents; Z88.8 Allergy status to other drugs, medicaments and biological substances
CPT/HCPCS: 99283; S0119

== ENCOUNTER 2019-01-12 13:45 | Emergency (ER) | payer OTHER ==
[2019-01-12 13:50] VITALS: BP 132/83; PULSE 91; RESP 18; TEMP 98.4
--- NOTE | 2019-01-12 14:13 | ED ---
ENT HPI - General Chief complaint: ENT Stated complaint: Ear ache, jaw pain Time Seen by Provider: 01/12/19 14:00 Source: patient, RN notes reviewed, old records reviewed Mode of arrival: ambulatory Limitations: no limitations - History of Present Illness Initial comments: This is a 23-year-old female the ER with left ear pain. Left jaw pain. Maybe had fevers. No cough or congestion. No sore throat. No travel history no sick contacts. Patient has history of ear infections feel similar. No change in hearing. His recent swimming or Q-tip use MD complaint: ear pain -: days(s) Location: L ear Severity: mild Quality: aching Consistency: constant Improves with: none Worsens with: none Context-Epistaxis: history of similar Context- Ear: recent illness Associated Symptoms: fever - Related Data Home Medications Medication Instructions Recorded Confirmed Loratadine [Claritin] 10 mg PO DAILY 02/05/16 01/12/19 Levothyroxine Sodium [Synthroid] 200 mcg PO DAILY 08/12/17 01/12/19 Omeprazole 40 mg PO DAILY 08/12/17 01/12/19 Montelukast [Singulair] 10 mg PO DAILY 11/17/18 01/12/19 Albuterol Inhaler [Ventolin Hfa 1 - 2 puff INHALATION RT-Q6H PRN 01/12/19 Inhaler] Beclomethasone Dip 80 Mcg/Puff 2 puff INHALATION RT-BID 01/12/19 01/12/19 [Qvar 80 mcg] FLUoxetine HCL [PROzac] 20 mg PO DAILY 01/12/19 01/12/19 Levothyroxine Sodium [Synthroid] 25 mcg PO DAILY 01/12/19 01/12/19 Previous Rx's Medication Instructions Recorded Amoxic-Pot Clav 875-125Mg 1 tab PO Q12HR #20 tablet 01/12/19 [Augmentin 875-125] Loratadine-Pseudoeph 10-240 mg 1 each PO DAILY #10 tab 01/12/19 [Claritin-D 24 Hr] Allergies Allergy/AdvReac Type Severity Reaction Status Date / Time benzonatate Allergy Rash/Hives Verified 01/12/19 14:00 [From Tessalon Perles] ibuprofen [From Motrin] Allergy KIDNEY PAIN Verified 01/12/19 14:00 Milk Containing Products Allergy Unknown Verified 01/12/19 14:00 [Dairy] sulfamethoxazole Allergy Rash/Hives Verified 01/12/19 14:00 [From Bactrim] trimethoprim [From Bactrim] Allergy Rash/Hives Verified 01/12/19 14:00 metoclopramide [From Reglan] AdvReac ANXIETY Verified 01/12/19 14:00 Review of Systems ROS Statement: Those systems with pertinent positive or pertinent negative responses have been documented in the HPI. ROS Other: All systems not noted in ROS Statement are negative. Past Medical History Past Medical History: Asthma, Diabetes Mellitus, GERD/Reflux, Thyroid Disorder Additional Past Medical History / Comment(s): anemia History of Any Multi-Drug Resistant Organisms: None Reported Past Surgical History: Adenoidectomy Additional Past Surgical History / Comment(s): Eye surgery Past Psychological History: Anxiety, Depression Smoking Status: Former smoker Past Alcohol Use History: Occasional Past Drug Use History: Marijuana General Exam Limitations: no limitations General appearance: alert, in no apparent distress Head exam: Present: atraumatic, normocephalic, normal inspection Eye exam: Present: normal appearance, PERRL, EOMI. Absent: scleral icterus, conjunctival injection, periorbital swelling ENT exam: Present: normal exam, mucous membranes moist, TM's normal bilaterally (Left ear. On otitis) Neck exam: Present: normal inspection. Absent: tenderness, meningismus, lymphadenopathy Respiratory exam: Present: normal lung sounds bilaterally. Absent: respiratory distress, wheezes, rales, rhonchi, stridor Cardiovascular Exam: Present: regular rate, normal rhythm, normal heart sounds. Absent: systolic murmur, diastolic murmur, rubs, gallop, clicks GI/Abdominal exam: Present: soft, normal bowel sounds. Absent: distended, tenderness, guarding, rebound, rigid Extremities exam: Present: normal inspection, full ROM, normal capillary refill. Absent: tenderness, pedal edema, joint swelling, calf tenderness Back exam: Present: normal inspection Neurological exam: Present: alert, oriented X3, CN II-XII intact Psychiatric exam: Present: normal affect, normal mood Skin exam: Present: warm, dry, intact, normal color. Absent: rash Course Vital Signs 01/12/19 13:48 Temperature 98.4 F Pulse Rate 91 Respiratory 18 Rate Blood Pressure 132/83 O2 Sat by Pulse 96 Oximetry Medical Decision Making - Medical Decision Making 23 female the ER for evaluation left ear pain. Patient does have purulent left otitis media. Patient placed on antibiotics and can be discharged home Disposition Clinical Impression: Otitis media, Left otitis media Disposition: HOME SELF-CARE Condition: Good Instructions (If sedation given, give patient instructions): Ear Infection (ED) , Serous Otitis Media (ED) Prescriptions: Amoxic-Pot Clav 875-125Mg [Augmentin 875-125] 1 tab PO Q12HR #20 tablet Loratadine-Pseudoeph 10-240 mg [Claritin-D 24 Hr] 1 each PO DAILY #10 tab Is patient prescribed a controlled substance at d/c from ED?: No Referrals: Gisella Smith MD [Primary Care Provider] - 1-2 days
== END 2019-01-12 14:28 | disposition home or self-care (01) ==
LOC: EC 13:45
DX: H66.42 Suppurative otitis media, unspecified, left ear (principal); J45.909 Unspecified asthma, uncomplicated; K21.9 Gastro-esophageal reflux disease without esophagitis; E07.9 Disorder of thyroid, unspecified; F32.9 Major depressive disorder, single episode, unspecified; F41.9 Anxiety disorder, unspecified; Z90.89 Acquired absence of other organs; Z87.891 Personal history of nicotine dependence; Z86.69 Personal history of other diseases of the nervous system and sense organs; Z79.890 Hormone replacement therapy; Z79.51 Long term (current) use of inhaled steroids; Z79.899 Other long term (current) drug therapy; Z88.8 Allergy status to other drugs, medicaments and biological substances; Z88.6 Allergy status to analgesic agent; Z91.011 Allergy to milk products; Z88.2 Allergy status to sulfonamides
CPT/HCPCS: 99283

== ENCOUNTER 2019-02-22 13:16 | Emergency (ER) | payer OTHER ==
[2019-02-22 14:27] VITALS: RESP 18
--- NOTE | 2019-02-22 16:04 | ED ---
Nausea/Vomiting/Diarrhea HPI - General Chief complaint: Nausea/Vomiting/Diarrhea Stated complaint: nausea, abd pain Source: patient Mode of arrival: ambulatory Limitations: no limitations - History of Present Illness Initial comments: 23-year-old female presented for nausea vomiting diarrhea and abdominal cramping. Patient states she has had on-and-off abdominal cramping diarrhea for the past few months. She states her symptoms today were identical however they lasted for 5 days which were concerning. Patient states she has no significant abdominal pain she states is more a crampy sensation diffusely. She states she has had diarrhea as well as occasional vomiting. She states she often has to vomit at the same time diarrhea. Patient thought that she may have food po isoning, denies recent travel. And presents to emergency room for evaluation. Patient states she's been eating drinking. Patient states she is able to keep down liquids. Patient denies decreased urination. Patient denies dysuria urgency frequency back pain chest pain dyspnea and dyspnea on exertion sore throat fever chills or night sweats. Patient denies vaginal discharge vaginal bleeding vaginal odor or pain with sex. Remaining review of systems negative upon arrival patient appears well no signs of acute distress vital signs within acceptable limits. - Related Data Home Medications Medication Instructions Recorded Confirmed Loratadine [Claritin] 10 mg PO DAILY 02/05/16 02/22/19 Levothyroxine Sodium [Synthroid] 200 mcg PO DAILY 08/12/17 02/22/19 Omeprazole 40 mg PO DAILY 08/12/17 02/22/19 Montelukast [Singulair] 10 mg PO DAILY 11/17/18 02/22/19 Albuterol Inhaler [Ventolin Hfa 1 - 2 puff INHALATION RT-Q6H PRN 01/12/19 02/22/19 Inhaler] Beclomethasone Dip 80 Mcg/Puff 2 puff INHALATION RT-BID 01/12/19 02/22/19 [Qvar 80 mcg] FLUoxetine HCL [PROzac] 20 mg PO DAILY 01/12/19 02/22/19 Levothyroxine Sodium [Synthroid] 25 mcg PO DAILY 01/12/19 02/22/19 Previous Rx's Medication Instructions Recorded Ondansetron Odt [Zofran Odt] 4 mg PO Q12HR PRN #63 tab 02/22/19 Allergies Allergy/AdvReac Type Severity Reaction Status Date / Time benzonatate Allergy Rash/Hives Verified 02/22/19 16:45 [From Tessalon Perles] ibuprofen [From Motrin] Allergy KIDNEY PAIN Verified 02/22/19 16:45 Milk Containing Products Allergy Unknown Verified 02/22/19 16:45 [Dairy] sulfamethoxazole Allergy Rash/Hives Verified 02/22/19 16:45 [From Bactrim] trimethoprim [From Bactrim] Allergy Rash/Hives Verified 02/22/19 16:45 metoclopramide [From Reglan] AdvReac ANXIETY Verified 02/22/19 16:45 Review of Systems ROS Statement: Those systems with pertinent positive or pertinent negative responses have been documented in the HPI. ROS Other: All systems not noted in ROS Statement are negative. Past Medical History Past Medical History: Asthma, Diabetes Mellitus, GERD/Reflux, Thyroid Disorder Additional Past Medical History / Comment(s): anemia History of Any Multi-Drug Resistant Organisms: None Reported Past Surgical History: Adenoidectomy Additional Past Surgical History / Comment(s): Eye surgery Past Psychological History: Anxiety, Depression Smoking Status: Former smoker Past Alcohol Use History: Occasional Past Drug Use History: Marijuana General Exam - General Exam Comments Initial Comments: General: The patient is awake and alert, in no distress, and does not appear acutely ill. Eye: +3 mm pupils are equal, round and reactive to light, extra-ocular movements are intact. No nystagmus. There is normal conjunctiva bilaterally. No signs of icterus. Ears, nose, mouth and throat: There are moist mucous membranes and no oral lesions. Neck: The neck is supple, there is no tenderness or JVD. Cardiovascular: There is a regular rate and rhythm. No murmur, rub or gallop is appreciated. Respiratory: Lungs are clear to auscultation, respirations are non-labored, breath sounds are equal. No wheezes, stridor, rales, or rhonchi. Gastrointestinal: Soft, non-distended, non-tender abdomen without masses or organomegaly noted. There is no rebound or guarding present. No CVA tenderness. Bowel sounds are unremarkable. Musculoskeletal: Normal ROM, no tenderness. Strength 5/5. Sensation intact. Pulses equal bilaterally 2+. Neurological: A&O x 3. CN II-XII intact, There are no obvious motor or sensory deficits. Coordination appears grossly intact. Speech is normal. Skin: Skin is warm and dry and no rashes or lesions are noted. No LE Edema. Psychiatric: Cooperative, appropriate mood & affect, normal judgment. Limitations: no limitations Course Vital Signs 02/22/19 02/22/19 02/22/19 14:25 16:38 17:05 Temperature 98.4 F 97.3 F L Pulse Rate 98 69 Respiratory 18 18 Rate Blood Pressure 129/79 119/74 O2 Sat by Pulse 99 100 Oximetry Medical Decision Making - Medical Decision Making A 3-year-old feel presenting for nausea vomiting diarrhea 5 days. Laboratory studies unremarkable. Mild discussed the ptosis most likely reactive due to vomiting. Patient has had no active emesis or diarrhea while in the emergency department. Patient provided Zofran, states his alleviate symptoms. Patient's abdominal exam was benign. I have suspicion for acute abdominal process at this time. Most likely enteritis. Patient has headaches pretty symptoms in the past on and off for the past few months differential diagnosis includes coli ts/irritable bowel. I discussed this with patient. I discussed the importance of following up with primary care provider as well as GI. Patient states she's appointment with her primary care provider scheduled for this upcoming . At this time patient is agreeable with patient care plan including IV hydration and antinausea occasions and discharge. Uterine prexy negative. Urinalysis r evealed not a clean catch, and no overt signs of infection. Urine culture pending. At this time I feel pt is stable for discharge with outpatient f/u and return parameters, for worsening abdominal pain or persistent symptoms. - Lab Data Result diagrams: 02/22/19 16:15 02/22/19 16:15 Lab Results 02/22/19 02/22/19 02/22/19 Range/Units 16:15 16:15 16:15 WBC 12.2 H (3.8-10.6) k/uL RBC 5.09 (3.80-5.40) m/uL Hgb 9.1 L (11.4-16.0) gm/dL Hct 31.5 L (34.0-46.0) % MCV 61.8 L (80.0-100.0) fL MCH 17.9 L (25.0-35.0) pg MCHC 29.0 L (31.0-37.0) g/dL RDW 17.7 H (11.5-15.5) % Plt Count 493 H (150-450) k/uL Neutrophils % 71 % Lymphocytes % 21 % Monocytes % 5 % Eosinophils % 2 % Basophils % 0 % Neutrophils # 8.7 H (1.3-7.7) k/uL Lymphocytes # 2.5 (1.0-4.8) k/uL Monocytes # 0.6 (0-1.0) k/uL Eosinophils # 0.3 (0-0.7) k/uL Basophils # 0.1 (0-0.2) k/uL Hypochromasia Marked Poikilocytosis Slight Anisocytosis Slight Microcytosis Marked Sodium 142 (137-145) mmol/L Potassium 4.0 (3.5-5.1) mmol/L Chloride 105 (98-107) mmol/L Carbon Dioxide 27 (22-30) mmol/L Anion Gap 10 mmol/L BUN 8 (7-17) mg/dL Creatinine 0.63 (0.52-1.04) mg/dL Est GFR (CKD-EPI)AfAm >90 (>60 ml/min/1.73 sqM) Est GFR (CKD-EPI)NonAf >90 (>60 ml/min/1.73 sqM) Glucose 92 (74-99) mg/dL Calcium 9.5 (8.4-10.2) mg/dL Total Bilirubin 0.5 (0.2-1.3) mg/dL AST 37 H (14-36) U/L ALT 41 (9-52) U/L Alkaline Phosphatase 62 (38-126) U/L Total Protein 7.8 (6.3-8.2) g/dL Albumin 4.0 (3.5-5.0) g/dL Lipase 135 (23-300) U/L Urine Color Urine Appearance (Clear) Urine pH (5.0-8.0) Ur Specific [place] (1.001-1.035) Urine Protein (Negative) Urine Glucose (UA) (Negative) Urine Ketones (Negative) Urine Blood (Negative) Urine Nitrite (Negative) Urine Bilirubin (Negative) Urine Urobilinogen (<2.0) mg/dL Ur Leukocyte Esterase (Negative) Urine RBC (0-5) /hpf Urine WBC (0-5) /hpf Ur Squamous Epith Cells (0-4) /hpf Calcium Oxalate Crystal (None) /hpf Urine Bacteria (None) /hpf Urine Mucus (None) /hpf Urine HCG, Qual Not Detected (Not Detectd) 02/22/19 Range/Units 16:15 WBC (3.8-10.6) k/uL RBC (3.80-5.40) m/uL Hgb (11.4-16.0) gm/dL Hct (34.0-46.0) % MCV (80.0-100.0) fL MCH (25.0-35.0) pg MCHC (31.0-37.0) g/dL RDW (11.5-15.5) % Plt Count (150-450) k/uL Neutrophils % % Lymphocytes % % Monocytes % % Eosinophils % % Basophils % % Neutrophils # (1.3-7.7) k/uL Lymphocytes # (1.0-4.8) k/uL Monocytes # (0-1.0) k/uL Eosinophils # (0-0.7) k/uL Basophils # (0-0.2) k/uL Hypochromasia Poikilocytosis Anisocytosis Microcytosis Sodium (137-145) mmol/L Potassium (3.5-5.1) mmol/L Chloride (98-107) mmol/L Carbon Dioxide (22-30) mmol/L Anion Gap mmol/L BUN (7-17) mg/dL Creatinine (0.52-1.04) mg/dL Est GFR (CKD-EPI)AfAm (>60 ml/min/1.73 sqM) Est GFR (CKD-EPI)NonAf (>60 ml/min/1.73 sqM) Glucose (74-99) mg/dL Calcium (8.4-10.2) mg/dL Total Bilirubin (0.2-1.3) mg/dL AST (14-36) U/L ALT (9-52) U/L Alkaline Phosphatase (38-126) U/L Total Protein (6.3-8.2) g/dL Albumin (3.5-5.0) g/dL Lipase (23-300) U/L Urine Color Yellow Urine Appearance Cloudy H (Clear) Urine pH 5.5 (5.0-8.0) Ur Specific [place] 1.028 (1.001-1.035) Urine Protein Trace H (Negative) Urine Glucose (UA) Negative (Negative) Urine Ketones Negative (Negative) Urine Blood Small H (Negative) Urine Nitrite Negative (Negative) Urine Bilirubin Negative (Negative) Urine Urobilinogen <2.0 (<2.0) mg/dL Ur Leukocyte Esterase Negative (Negative) Urine RBC 6 H (0-5) /hpf Urine WBC 2 (0-5) /hpf Ur Squamous Epith Cells 31 H (0-4) /hpf Calcium Oxalate Crystal Few H (None) /hpf Urine Bacteria Few H (None) /hpf Urine Mucus Moderate H (None) /hpf Urine HCG, Qual (Not Detectd) Disposition Clinical Impression: Diarrhea, Abdominal cramping Disposition: HOME SELF-CARE Condition: Good Instructions (If sedation given, give patient instructions): Acute Diarrhea (ED) Additional Instructions: Please use medication as discussed. Please follow-up with family doctor in the next 2 days. If continue to experience on and off crampy abdominal pain, please follow-up with Dr. Zavala. Please return to emergency room if the symptoms increase or worsen or for any other concerns. Prescriptions: Ondansetron Odt [Zofran Odt] 4 mg PO Q12HR PRN #63 tab PRN Reason: Nausea Is patient prescribed a controlled substance at d/c from ED?: No Referrals: Gisella Smith MD [Primary Care Provider] - 1-2 days Korina Zavala MD [STAFF PHYSICIAN] - 1-2 days Time of Disposition: 16:46
[2019-02-22] MEDS ORDERED: SODIUM CHLORIDE 0.9% 1,000 ML IV ONE (16:14)
[2019-02-22] MEDS ORDERED: ONDANSETRON 4 MG/2 ML VIAL IVP STA (16:14)
[2019-02-22 16:31] LABS: Anisocytosis Slight; Basophils # (A) 0.1 k/uL (0-0.2); Basophils % (A) 0 %; Eosinophils # (A) 0.3 k/uL (0-0.7); Eosinophils % (A) 2 %; HCT 31.5 % (34.0-46.0); HGB 9.1 gm/dL (11.4-16.0); Hypochromasia Marked; Lymphocytes # (A) 2.5 k/uL (1.0-4.8); Lymphocytes % (A) 21 %; MCH 17.9 pg (25.0-35.0); MCV 61.8 fL (80.0-100.0); Microcytosis Marked; Monocytes # (A) 0.6 k/uL (0-1.0); Monocytes % (A) 5 %; Neutrophils # (A) 8.7 k/uL (1.3-7.7); Neutrophils % (A) 71 %; Platelet Count 493 k/uL (150-450); Poikilocytosis Slight; RBC 5.09 m/uL (3.80-5.40); RDW 17.7 % (11.5-15.5); WBC 12.2 k/uL (3.8-10.6)
[2019-02-22 16:36] LABS: Appearance,Urine Cloudy (Clear); Bacteria,Urine Few /hpf; Bilirubin,Urine Negative (Negative); Blood,Urine Small (Negative); Calcium Oxalate Crystals,Urine Few /hpf; Color,Urine Yellow; Glucose,Urine (UA) Negative (Negative); Ketones,Urine Negative (Negative); Leukocyte Esterase,Urine Negative (Negative); Mucus,Urine Moderate /hpf; Nitrite,Urine Negative (Negative); PH, Urine 5.5 (5.0-8.0); Protein,Urine Trace (Negative); RBC,Urine 6 /hpf (0-5); Specific Gravity,Urine 1.028 (1.001-1.035); Squamous Epithelial Cell,Urine 31 /hpf (0-4); Urobilinogen,Urine <2.0 mg/dL (<2.0)
[2019-02-22 16:38] LABS: ALT 41 U/L (9-52); AST 37 U/L (14-36); Alkaline Phosphatase 62 U/L (38-126); Anion Gap 10 mmol/L; Blood Urea Nitrogen 8 mg/dL (7-17); Calcium 9.5 mg/dL (8.4-10.2); Carbon Dioxide 27 mmol/L (22-30); Chloride 105 mmol/L (98-107); Glucose 92 mg/dL (74-99); Lipase 135 U/L (23-300); Sodium 142 mmol/L (137-145); Total Bilirubin 0.5 mg/dL (0.2-1.3); Total Protein 7.8 g/dL (6.3-8.2)
[2019-02-22 16:40] VITALS: BP 119/74; PULSE 69
[2019-02-22 17:06] VITALS: TEMP 97.3
== END 2019-02-22 17:05 | disposition home or self-care (01) ==
LOC: EC 13:16
DX: R19.7 Diarrhea, unspecified (principal); R25.2 Cramp and spasm; R51 Headache; R11.2 Nausea with vomiting, unspecified; J45.909 Unspecified asthma, uncomplicated; K21.9 Gastro-esophageal reflux disease without esophagitis; E07.9 Disorder of thyroid, unspecified; F32.9 Major depressive disorder, single episode, unspecified; F41.9 Anxiety disorder, unspecified; Z87.891 Personal history of nicotine dependence; Z88.2 Allergy status to sulfonamides; Z88.6 Allergy status to analgesic agent; Z88.8 Allergy status to other drugs, medicaments and biological substances; Z91.011 Allergy to milk products; Z79.51 Long term (current) use of inhaled steroids; Z79.890 Hormone replacement therapy; Z79.899 Other long term (current) drug therapy
CPT/HCPCS: 36415; 80053; 83690; 85025; 81001; 81025; 99284; 96374; 96361; J2405

== ENCOUNTER 2019-04-18 11:37 | Emergency (ER) | payer OTHER ==
[2019-04-18 11:56] VITALS: TEMP 98.5
[2019-04-18] MEDS ORDERED: SODIUM CHLORIDE 0.9% 500 ML 500 ML IV STA (11:58)
[2019-04-18] MEDS ORDERED: diphenhydrAMINE 50 MG/ML 1 ML VIAL IVP STA (11:58)
[2019-04-18] MEDS ORDERED: ONDANSETRON 4 MG/2 ML VIAL IVP STA (11:58)
[2019-04-18] MEDS ORDERED: SODIUM CHLORIDE 0.9% 1,000 ML IV STA (11:58)
--- NOTE | 2019-04-18 12:23 | ED ---
Nausea/Vomiting/Diarrhea HPI - General Chief complaint: Nausea/Vomiting/Diarrhea Stated complaint: vomiting/diarreha Time Seen by Provider: 04/18/19 11:57 Source: patient, RN notes reviewed Mode of arrival: ambulatory Limitations: no limitations - History of Present Illness Initial comments: 34-year-old female presents emergency Department with chief complaint of nausea vomiting diarrhea. Patient states symptoms started last night have been persistent. Patient states that she just feels rundown. Patient had this recurrent issues with nausea vomiting diarrhea but has not follow-up with GI at this time. Patient also has underlying anemia secondary to menorrhagia. Patient states she is on Provera which is helping. Patient denies any localized abdominal plain no dysuria no urinary frequency. Patient states her diarrhea is loose watery no melena or hematochezia. - Related Data Home Medications Medication Instructions Recorded Confirmed Loratadine [Claritin] 10 mg PO DAILY 02/05/16 02/22/19 Levothyroxine Sodium [Synthroid] 200 mcg PO DAILY 08/12/17 02/22/19 Omeprazole 40 mg PO DAILY 08/12/17 02/22/19 Montelukast [Singulair] 10 mg PO DAILY 11/17/18 02/22/19 Albuterol Inhaler [Ventolin Hfa 1 - 2 puff INHALATION RT-Q6H PRN 01/12/19 02/22/19 Inhaler] Beclomethasone Dip 80 Mcg/Puff 2 puff INHALATION RT-BID 01/12/19 02/22/19 [Qvar 80 mcg] FLUoxetine HCL [PROzac] 20 mg PO DAILY 01/12/19 02/22/19 Levothyroxine Sodium [Synthroid] 25 mcg PO DAILY 01/12/19 02/22/19 Previous Rx's Medication Instructions Recorded Ondansetron Odt [Zofran Odt] 4 mg PO Q12HR PRN #63 tab 02/22/19 Ondansetron Odt [Zofran Odt] 4 mg PO Q8HR PRN #14 tab 04/18/19 Allergies Allergy/AdvReac Type Severity Reaction Status Date / Time benzonatate Allergy Rash/Hives Verified 02/22/19 16:45 [From Tessalon Perles] ibuprofen [From Motrin] Allergy KIDNEY PAIN Verified 02/22/19 16:45 Milk Containing Products Allergy Unknown Verified 02/22/19 16:45 [Dairy] sulfamethoxazole Allergy Rash/Hives Verified 02/22/19 16:45 [From Bactrim] trimethoprim [From Bactrim] Allergy Rash/Hives Verified 02/22/19 16:45 metoclopramide [From Reglan] AdvReac ANXIETY Verified 02/22/19 16:45 Review of Systems ROS Statement: Those systems with pertinent positive or pertinent negative responses have been documented in the HPI. ROS Other: All systems not noted in ROS Statement are negative. Past Medical History Past Medical History: Asthma, Diabetes Mellitus, GERD/Reflux, Thyroid Disorder Additional Past Medical History / Comment(s): anemia History of Any Multi-Drug Resistant Organisms: None Reported Past Surgical History: Adenoidectomy Additional Past Surgical History / Comment(s): Eye surgery Past Psychological History: Anxiety, Depression Smoking Status: Former smoker Past Alcohol Use History: Occasional Past Drug Use History: Marijuana General Exam Limitations: no limitations General appearance: alert, in no apparent distress Head exam: Present: atraumatic, normocephalic, normal inspection Neck exam: Present: normal inspection. Absent: tenderness, meningismus, lymphadenopathy Respiratory exam: Present: normal lung sounds bilaterally. Absent: respiratory distress, wheezes, rales, rhonchi, stridor Cardiovascular Exam: Present: regular rate, normal rhythm, normal heart sounds. Absent: systolic murmur, diastolic murmur, rubs, gallop, clicks GI/Abdominal exam: Present: soft, tenderness (Mild diffuse no localized tenderness), normal bowel sounds. Absent: distended, guarding, rebound, rigid Back exam: Absent: CVA tenderness (R), CVA tenderness (L) Course Vital Signs 04/18/19 11:53 Temperature 98.5 F Pulse Rate 84 Respiratory 18 Rate Blood Pressure 130/77 O2 Sat by Pulse 100 Oximetry Medical Decision Making - Medical Decision Making 24-year-old female presented for nausea vomiting diarrhea. Patient had this recurrent issues. 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 Patient will be discharged at this time with follow-up. Patient we discharged on Zofran return parameters were discussed - Lab Data Result diagrams: 04/18/19 12:12 04/18/19 12:12 Lab Results 04/18/19 04/18/19 04/18/19 Range/Units 12:12 12:12 12:12 WBC 10.8 H (3.8-10.6) k/uL RBC 5.00 (3.80-5.40) m/uL Hgb 9.0 L (11.4-16.0) gm/dL Hct 31.8 L (34.0-46.0) % MCV 63.6 L (80.0-100.0) fL MCH 18.0 L (25.0-35.0) pg MCHC 28.3 L (31.0-37.0) g/dL RDW 17.6 H (11.5-15.5) % Plt Count 468 H (150-450) k/uL Neutrophils % 71 % Lymphocytes % 22 % Monocytes % 4 % Eosinophils % 2 % Basophils % 0 % Neutrophils # 7.7 (1.3-7.7) k/uL Lymphocytes # 2.4 (1.0-4.8) k/uL Monocytes # 0.4 (0-1.0) k/uL Eosinophils # 0.2 (0-0.7) k/uL Basophils # 0.0 (0-0.2) k/uL Hypochromasia Marked Poikilocytosis Slight Anisocytosis Slight Microcytosis Marked Sodium 142 (137-145) mmol/L Potassium 4.0 (3.5-5.1) mmol/L Chloride 111 H (98-107) mmol/L Carbon Dioxide 24 (22-30) mmol/L Anion Gap 7 mmol/L BUN 6 L (7-17) mg/dL Creatinine 0.65 (0.52-1.04) mg/dL Est GFR (CKD-EPI)AfAm >90 (>60 ml/min/1.73 sqM) Est GFR (CKD-EPI)NonAf >90 (>60 ml/min/1.73 sqM) Glucose 113 H (74-99) mg/dL Calcium 8.9 (8.4-10.2) mg/dL Total Bilirubin 0.2 (0.2-1.3) mg/dL AST 17 (14-36) U/L ALT 16 (9-52) U/L Alkaline Phosphatase 57 (38-126) U/L Total Protein 7.3 (6.3-8.2) g/dL Albumin 3.9 (3.5-5.0) g/dL Lipase 97 (23-300) U/L Urine Color Yellow Urine Appearance Clear (Clear) Urine pH 5.5 (5.0-8.0) Ur Specific [place] 1.014 (1.001-1.035) Urine Protein Negative (Negative) Urine Glucose (UA) Negative (Negative) Urine Ketones Negative (Negative) Urine Blood Moderate H (Negative) Urine Nitrite Negative (Negative) Urine Bilirubin Negative (Negative) Urine Urobilinogen <2.0 (<2.0) mg/dL Ur Leukocyte Esterase Negative (Negative) Urine RBC 109 H (0-5) /hpf Urine WBC 2 (0-5) /hpf Ur Squamous Epith Cells 8 H (0-4) /hpf Urine Mucus Rare H (None) /hpf Urine HCG, Qual (Not Detectd) 04/18/19 Range/Units 12:12 WBC (3.8-10.6) k/uL RBC (3.80-5.40) m/uL Hgb (11.4-16.0) gm/dL Hct (34.0-46.0) % MCV (80.0-100.0) fL MCH (25.0-35.0) pg MCHC (31.0-37.0) g/dL RDW (11.5-15.5) % Plt Count (150-450) k/uL Neutrophils % % Lymphocytes % % Monocytes % % Eosinophils % % Basophils % % Neutrophils # (1.3-7.7) k/uL Lymphocytes # (1.0-4.8) k/uL Monocytes # (0-1.0) k/uL Eosinophils # (0-0.7) k/uL Basophils # (0-0.2) k/uL Hypochromasia Poikilocytosis Anisocytosis Microcytosis Sodium (137-145) mmol/L Potassium (3.5-5.1) mmol/L Chloride (98-107) mmol/L Carbon Dioxide (22-30) mmol/L Anion Gap mmol/L BUN (7-17) mg/dL Creatinine (0.52-1.04) mg/dL Est GFR (CKD-EPI)AfAm (>60 ml/min/1.73 sqM) Est GFR (CKD-EPI)NonAf (>60 ml/min/1.73 sqM) Glucose (74-99) mg/dL Calcium (8.4-10.2) mg/dL Total Bilirubin (0.2-1.3) mg/dL AST (14-36) U/L ALT (9-52) U/L Alkaline Phosphatase (38-126) U/L Total Protein (6.3-8.2) g/dL Albumin (3.5-5.0) g/dL Lipase (23-300) U/L Urine Color Urine Appearance (Clear) Urine pH (5.0-8.0) Ur Specific [place] (1.001-1.035) Urine Protein (Negative) Urine Glucose (UA) (Negative) Urine Ketones (Negative) Urine Blood (Negative) Urine Nitrite (Negative) Urine Bilirubin (Negative) Urine Urobilinogen (<2.0) mg/dL Ur Leukocyte Esterase (Negative) Urine RBC (0-5) /hpf Urine WBC (0-5) /hpf Ur Squamous Epith Cells (0-4) /hpf Urine Mucus (None) /hpf Urine HCG, Qual Not Detected (Not Detectd) Disposition Clinical Impression: Nausea vomiting and diarrhea Disposition: HOME SELF-CARE Condition: Stable Instructions (If sedation given, give patient instructions): Acute Nausea and Vomiting (ED), Acute Diarrhea (ED) Additional Instructions: Please return to the Emergency Department if symptoms worsen or any other concerns. Prescriptions: Ondansetron Odt [Zofran Odt] 4 mg PO Q8HR PRN #14 tab PRN Reason: Nausea Is patient prescribed a controlled substance at d/c from ED?: No Referrals: Gisella Smith MD [Primary Care Provider] - 1-2 days Korina Zavala MD [STAFF PHYSICIAN] - 1-2 days Time of Disposition: 13:04
[2019-04-18 12:29] LABS: Appearance,Urine Clear (Clear); Bilirubin,Urine Negative (Negative); Blood,Urine Moderate (Negative); Color,Urine Yellow; Glucose,Urine (UA) Negative (Negative); Ketones,Urine Negative (Negative); Leukocyte Esterase,Urine Negative (Negative); Mucus,Urine Rare /hpf; Nitrite,Urine Negative (Negative); PH, Urine 5.5 (5.0-8.0); Protein,Urine Negative (Negative); RBC,Urine 109 /hpf (0-5); Specific Gravity,Urine 1.014 (1.001-1.035); Squamous Epithelial Cell,Urine 8 /hpf (0-4); Urobilinogen,Urine <2.0 mg/dL (<2.0)
[2019-04-18 12:34] LABS: Anisocytosis Slight; Basophils % (A) 0 %; Eosinophils # (A) 0.2 k/uL (0-0.7); Eosinophils % (A) 2 %; HCT 31.8 % (34.0-46.0); Hypochromasia Marked; Lymphocytes # (A) 2.4 k/uL (1.0-4.8); Lymphocytes % (A) 22 %; MCHC 28.3 g/dL (31.0-37.0); MCV 63.6 fL (80.0-100.0); Mean Platelet Volume 7.6; Microcytosis Marked; Monocytes # (A) 0.4 k/uL (0-1.0); Monocytes % (A) 4 %; Neutrophils # (A) 7.7 k/uL (1.3-7.7); Neutrophils % (A) 71 %; Platelet Count 468 k/uL (150-450); Poikilocytosis Slight; RDW 17.6 % (11.5-15.5); WBC 10.8 k/uL (3.8-10.6)
[2019-04-18 12:39] LABS: ALT 16 U/L (9-52); AST 17 U/L (14-36); Albumin 3.9 g/dL (3.5-5.0); Alkaline Phosphatase 57 U/L (38-126); Anion Gap 7 mmol/L; Blood Urea Nitrogen 6 mg/dL (7-17); Calcium 8.9 mg/dL (8.4-10.2); Carbon Dioxide 24 mmol/L (22-30); Chloride 111 mmol/L (98-107); Glucose 113 mg/dL (74-99); Lipase 97 U/L (23-300); Sodium 142 mmol/L (137-145); Total Bilirubin 0.2 mg/dL (0.2-1.3); Total Protein 7.3 g/dL (6.3-8.2)
[2019-04-18] MEDS ORDERED: ONDANSETRON 4 MG ODT STARTER PACK 2 TAB BTL PO STA (13:04)
[2019-04-18 13:18] VITALS: BP 129/78; PULSE 87; RESP 16
== END 2019-04-18 13:20 | disposition home or self-care (01) ==
LOC: EC 11:37
DX: R11.2 Nausea with vomiting, unspecified (principal); R19.7 Diarrhea, unspecified; D64.9 Anemia, unspecified; N92.0 Excessive and frequent menstruation with regular cycle; J45.909 Unspecified asthma, uncomplicated; K21.9 Gastro-esophageal reflux disease without esophagitis; E07.9 Disorder of thyroid, unspecified; F41.9 Anxiety disorder, unspecified; F32.9 Major depressive disorder, single episode, unspecified; Z87.891 Personal history of nicotine dependence; Z79.890 Hormone replacement therapy; Z79.51 Long term (current) use of inhaled steroids; Z79.899 Other long term (current) drug therapy; Z88.8 Allergy status to other drugs, medicaments and biological substances; Z88.6 Allergy status to analgesic agent; Z91.011 Allergy to milk products; Z88.2 Allergy status to sulfonamides
CPT/HCPCS: 99284; 96374; 96375; 96361; 36415; 80053; 83690; 85025; 81001; 81025; J1200; J2405; S0119

== ENCOUNTER 2019-06-25 16:18 | Emergency (ER) | payer OTHER ==
[2019-06-25 17:14] VITALS: RESP 18
[2019-06-25] MEDS ORDERED: LORazepam 2 MG/ML INJ IV STA (17:14)
[2019-06-25] MEDS ORDERED: ONDANSETRON 4 MG/2 ML VIAL IVP STA (17:59)
[2019-06-25] MEDS ORDERED: SODIUM CHLORIDE 0.9% 2,000 ML IV STA (17:59)
[2019-06-25 18:52] LABS: Anisocytosis Slight; Basophils % (A) 0 %; Eosinophils # (A) 0.1 k/uL (0-0.7); Eosinophils % (A) 1 %; HCT 38.9 % (34.0-46.0); HGB 11.8 gm/dL (11.4-16.0); Hypochromasia Slight; Lymphocytes # (A) 3.6 k/uL (1.0-4.8); Lymphocytes % (A) 24 %; MCH 20.3 pg (25.0-35.0); MCHC 30.4 g/dL (31.0-37.0); MCV 66.8 fL (80.0-100.0); Mean Platelet Volume 6.7; Microcytosis Marked; Monocytes # (A) 0.6 k/uL (0-1.0); Monocytes % (A) 4 %; Neutrophils # (A) 10.6 k/uL (1.3-7.7); Neutrophils % (A) 70 %; Platelet Count 564 k/uL (150-450); RBC 5.83 m/uL (3.80-5.40); RDW 19.2 % (11.5-15.5); WBC 15.3 k/uL (3.8-10.6)
[2019-06-25 18:54] LABS: Appearance,Urine Clear (Clear); Bilirubin,Urine Negative (Negative); Blood,Urine Negative (Negative); Color,Urine Light Yellow; Glucose,Urine (UA) Negative (Negative); Ketones,Urine Negative (Negative); Leukocyte Esterase,Urine Negative (Negative); Nitrite,Urine Negative (Negative); Protein,Urine Negative (Negative); Specific Gravity,Urine 1.007 (1.001-1.035); Urobilinogen,Urine <2.0 mg/dL (<2.0)
[2019-06-25 19:02] LABS: ALT 26 U/L (9-52); AST 28 U/L (14-36); African American GFR (CKD) >90 (>60 ml/min/1.73 sqM); Albumin 4.5 g/dL (3.5-5.0); Alkaline Phosphatase 76 U/L (38-126); Anion Gap 15 mmol/L; Blood Urea Nitrogen 8 mg/dL (7-17); Calcium 9.9 mg/dL (8.4-10.2); Carbon Dioxide 19 mmol/L (22-30); Chloride 106 mmol/L (98-107); Glucose 98 mg/dL (74-99); Potassium 4.3 mmol/L (3.5-5.1); Sodium 140 mmol/L (137-145); Total Bilirubin 0.7 mg/dL (0.2-1.3); Total Protein 8.6 g/dL (6.3-8.2)
--- NOTE | 2019-06-25 20:44 | CT ---
EXAMINATION TYPE: CT abdomen pelvis w con DATE OF EXAM: 06/25/2019 COMPARISON: 09/15/2017 HISTORY: Vomiting and nausea CT DLP: 2054.8 mGycm Automated exposure control for dose reduction was used. TECHNIQUE: Helical acquisition of images was performed from the lung bases through the pelvis. CONTRAST: Performed without Oral Contrast and with IV Contrast, patient injected with 100 mL of Isovue 300. FINDINGS: Lung bases are clear. There is no pleural effusion. Heart size is normal. There is no pericardial effusion. Liver spleen pancreas gallbladder appear norm al. Stomach appears normal. Bile ducts are not dilated. There is small umbilical hernia that contains fat. There is no adrenal mass. Kidneys show satisfactory contrast opacification. There is no hydronephrosi s. Ureters are not dilated. There is slight herniation of the ileocecal valve into the cecum. There i s no evidence of a bowel obstruction. Bladder distends smoothly. Uterus is retroverted. There is no f ree fluid in the pelvis. There is no sign of a pelvic mass. There is no mesenteric edema. There is no inguinal hernia. There is no evidence of intestinal obstruction. There is no evidence of thickened appendix. The lumbar vertebra have normal spacing and alignment. Posterior elements are intact. Bony pelvis is intact. IMPRESSION: THERE IS SOME LIPOMATOSIS OF THE ILEOCECAL VALVE. NO BOWEL OBSTRUCTION. NO SIGN OF ACUTE ABDOMEN AND PELVIS. NO CHANGE COMPARED TO OLD EXAM.
[2019-06-25] MEDS ORDERED: ONDANSETRON 4 MG ODT STARTER PACK 2 TAB BTL PO STA (21:19)
--- NOTE | 2019-06-25 21:19 | XR ---
EXAMINATION TYPE: XR chest 2V DATE OF EXAM: 06/25/2019 COMPARISON: 12/22/2017 HISTORY: Difficulty breathing TECHNIQUE: Frontal and lateral views of the chest are obtained. FINDINGS: Heart and mediastinum are normal. Lungs are clear. Diaphragm is normal. Bony thorax appear s normal. IMPRESSION: Normal chest. No change.
--- NOTE | 2019-06-25 21:27 | ED ---
Nausea/Vomiting/Diarrhea HPI - General Chief complaint: Nausea/Vomiting/Diarrhea Stated complaint: ALYSSA, dizzy Time Seen by Provider: 06/25/19 16:30 Source: patient Mode of arrival: ambulatory Limitations: no limitations - History of Present Illness Initial comments: The patient is a 24-year-old female who presents emergency room with reported 2 days of nausea and vomiting. She states that her symptoms started around 7 PM when she was out drinking with friends. She did think that she may have contracted some type of food poisoning. She began having multiple episodes of nausea and vomiting. States that her symptoms progressed yesterday. She began feeling presyncopal. States that she was unable to tolerate any food. She has been able to hold down water only. Her "dizzy sensation" is worse with positional changes. Denies vertigo or ataxia. She denies any chest pain or shortness of breath. Denies any abdominal pain. Does admit to diarrhea. Denies melanotic stools or hematochezia. Vomiting is not bilious and nonbloody. Denies concern for . No abnormal vaginal bleeding or discharge. Last menstrual cycle was on June 05. Denies any changes in her urination to include dysuria, hematuria or difficulty voiding. Denies any headaches or visual changes. No unilateral numbness or weakness. There are no other alleviating, precipitating or modifying factors - Related Data Home Medications Medication Instructions Recorded Confirmed Levothyroxine Sodium [Synthroid] 200 mcg PO DAILY 08/12/17 06/25/19 Omeprazole 40 mg PO DAILY 08/12/17 06/25/19 Montelukast [Singulair] 10 mg PO DAILY 11/17/18 06/25/19 Albuterol Inhaler [Ventolin Hfa 1 - 2 puff INHALATION RT-Q6H PRN 01/12/1908/05 Inhaler] Beclomethasone Dip 80 Mcg/Puff 2 puff INHALATION RT-BID 01/12/19 06/25/19 [Qvar 80 mcg] FLUoxetine HCL [PROzac] 20 mg PO DAILY 01/12/19 06/25/19 Levothyroxine Sodium [Synthroid] 25 mcg PO DAILY 01/12/19 06/25/19 Ferrous Sulfate [Feosol] 325 mg PO DAILY 06/25/19 06/25/19 Previous Rx's Medication Instructions Recorded Ondansetron Odt [Zofran Odt] 4 mg PO Q8HR PRN #10 tab 06/25/19 Allergies Allergy/AdvReac Type Severity Reaction Status Date / Time benzonatate Allergy Rash/Hives Verified 06/25/19 19:08 [From Tessalon Perles] ibuprofen [From Motrin] Allergy KIDNEY PAIN Verified 06/25/19 19:08 Milk Containing Products Allergy Unknown Verified 06/25/19 19:08 [Dairy] sulfamethoxazole Allergy Rash/Hives Verified 06/25/19 19:08 [From Bactrim] trimethoprim [From Bactrim] Allergy Rash/Hives Verified 06/25/19 19:08 metoclopramide [From Reglan] AdvReac ANXIETY Verified 06/25/19 19:08 Review of Systems ROS Statement: Those systems with pertinent positive or pertinent negative responses have been documented in the HPI. ROS Other: All systems not noted in ROS Statement are negative. Past Medical History Past Medical History: Asthma, Diabetes Mellitus, GERD/Reflux, Thyroid Disorder Additional Past Medical History / Comment(s): anemia History of Any Multi-Drug Resistant Organisms: None Reported Past Surgical History: Adenoidectomy Additional Past Surgical History / Comment(s): Eye surgery Past Psychological History: Anxiety, Depression Smoking Status: Former smoker Past Alcohol Use History: Occasional Past Drug Use History: Marijuana General Exam Limitations: no limitations General appearance: alert, in no apparent distress Head exam: Present: atraumatic, normocephalic, normal inspection Eye exam: Present: normal appearance, PERRL, EOMI. Absent: scleral icterus, conjunctival injection, periorbital swelling ENT exam: Present: normal exam, mucous membranes moist Neck exam: Present: normal inspection. Absent: tenderness, meningismus, lymphadenopathy Respiratory exam: Present: normal lung sounds bilaterally. Absent: respiratory distress, wheezes, rales, rhonchi, stridor Cardiovascular Exam: Present: regular rate, normal rhythm, normal heart sounds. Absent: systolic murmur, diastolic murmur, rubs, gallop, clicks GI/Abdominal exam: Present: soft, normal bowel sounds. Absent: distended, tenderness, guarding, rebound, rigid Extremities exam: Present: normal inspection, full ROM, normal capillary refill. Absent: tenderness, pedal edema, joint swelling, calf tenderness Back exam: Present: normal inspection Neurological exam: Present: alert, oriented X3, CN II-XII intact Psychiatric exam: Present: normal affect, normal mood Skin exam: Present: warm, dry, intact, normal color. Absent: rash Course Vital Signs 06/25/19 06/25/19 06/25/19 16:26 17:10 22:01 Temperature 98.6 F 98.7 F Pulse Rate 85 74 Respiratory 16 18 18 Rate Blood Pressure 124/71 145/89 O2 Sat by Pulse 100 98 Oximetry Medical Decision Making - Medical Decision Making Upon arrival the patient is placed into room 20. She is hooked up to continuous pulse ox and cardiac monitoring. I did request an EKG as the patient is reporting a presyncopal sensation. EKG is performed and demonstrates no acute abnormal findings. Peripheral IV is established. The patient was given 0.5 mg of Ativan as she is requesting something for anxiety. States she has a history of anxiety. I did provide her with 2 L of 0.9% normal saline. She is also given 4 mg of Zofran for her nausea. Laboratory studies were conducted. The patient does provide a urine sample. She is sent for a chest x-ray as well as a CT for abdomen and pelvis. Upon return of the results they are discuss with the patient. She does have a leukocytosis of 15,000. The patient's is reevaluated and states she was able to ambulate to the bathroom without difficulty. She has had no further episodes of vomiting within the ER. Her abdomen remains non peritoneal. At this time the patient will be discharged home with a Zofran starter pack. She also be given a prescription for Zofran. She does have an appointment on Friday with her primary care physician. She also has a appointment with her GI physician on the . I instructed her that if she has any new or worsening symptoms, she should return to emergency department sooner. Patient was in agreement treatment plan and was discharge home in stable condition - Differential Diagnosis presyncope, nausea/vomiting, acute dehydration, leukocytosis - Lab Data Result diagrams: 06/25/19 17:11 06/25/19 17:11 Lab Results 06/25/19 06/25/19 06/25/19 Range/Units 17:11 17:11 17:11 WBC 15.3 H (3.8-10.6) k/uL RBC 5.83 H (3.80-5.40) m/uL Hgb 11.8 (11.4-16.0) gm/dL Hct 38.9 (34.0-46.0) % MCV 66.8 L (80.0-100.0) fL MCH 20.3 L (25.0-35.0) pg MCHC 30.4 L (31.0-37.0) g/dL RDW 19.2 H (11.5-15.5) % Plt Count 564 H (150-450) k/uL Neutrophils % 70 % Lymphocytes % 24 % Monocytes % 4 % Eosinophils % 1 % Basophils % 0 % Neutrophils # 10.6 H (1.3-7.7) k/uL Lymphocytes # 3.6 (1.0-4.8) k/uL Monocytes # 0.6 (0-1.0) k/uL Eosinophils # 0.1 (0-0.7) k/uL Basophils # 0.0 (0-0.2) k/uL Hypochromasia Slight Anisocytosis Slight Microcytosis Marked Sodium 140 (137-145) mmol/L Potassium 4.3 (3.5-5.1) mmol/L Chloride 106 (98-107) mmol/L Carbon Dioxide 19 L (22-30) mmol/L Anion Gap 15 mmol/L BUN 8 (7-17) mg/dL Creatinine 0.63 (0.52-1.04) mg/dL Est GFR (CKD-EPI)AfAm >90 (>60 ml/min/1.73 sqM) Est GFR (CKD-EPI)NonAf >90 (>60 ml/min/1.73 sqM) Glucose 98 (74-99) mg/dL Plasma Lactic Acid Tk (0.7-2.0) mmol/L Calcium 9.9 (8.4-10.2) mg/dL Total Bilirubin 0.7 (0.2-1.3) mg/dL AST 28 (14-36) U/L ALT 26 (9-52) U/L Alkaline Phosphatase 76 (38-126) U/L Total Protein 8.6 H (6.3-8.2) g/dL Albumin 4.5 (3.5-5.0) g/dL Lipase 130 (23-300) U/L TSH 1.840 (0.465-4.680) mIU/L Urine Color Light Yellow Urine Appearance Clear (Clear) Urine pH 8.0 (5.0-8.0) Ur Specific [place] 1.007 (1.001-1.035) Urine Protein Negative (Negative) Urine Glucose (UA) Negative (Negative) Urine Ketones Negative (Negative) Urine Blood Negative (Negative) Urine Nitrite Negative (Negative) Urine Bilirubin Negative (Negative) Urine Urobilinogen <2.0 (<2.0) mg/dL Ur Leukocyte Esterase Negative (Negative) Urine HCG, Qual (Not Detectd) 06/25/19 06/25/19 Range/Units 17:11 17:11 WBC (3.8-10.6) k/uL RBC (3.80-5.40) m/uL Hgb (11.4-16.0) gm/dL Hct (34.0-46.0) % MCV (80.0-100.0) fL MCH (25.0-35.0) pg MCHC (31.0-37.0) g/dL RDW (11.5-15.5) % Plt Count (150-450) k/uL Neutrophils % % Lymphocytes % % Monocytes % % Eosinophils % % Basophils % % Neutrophils # (1.3-7.7) k/uL Lymphocytes # (1.0-4.8) k/uL Monocytes # (0-1.0) k/uL Eosinophils # (0-0.7) k/uL Basophils # (0-0.2) k/uL Hypochromasia Anisocytosis Microcytosis Sodium (137-145) mmol/L Potassium (3.5-5.1) mmol/L Chloride (98-107) mmol/L Carbon Dioxide (22-30) mmol/L Anion Gap mmol/L BUN (7-17) mg/dL Creatinine (0.52-1.04) mg/dL Est GFR (CKD-EPI)AfAm (>60 ml/min/1.73 sqM) Est GFR (CKD-EPI)NonAf (>60 ml/min/1.73 sqM) Glucose (74-99) mg/dL Plasma Lactic Acid Tk 1.6 (0.7-2.0) mmol/L Calcium (8.4-10.2) mg/dL Total Bilirubin (0.2-1.3) mg/dL AST (14-36) U/L ALT (9-52) U/L Alkaline Phosphatase (38-126) U/L Total Protein (6.3-8.2) g/dL Albumin (3.5-5.0) g/dL Lipase (23-300) U/L TSH (0.465-4.680) mIU/L Urine Color Urine Appearance (Clear) Urine pH (5.0-8.0) Ur Specific [place] (1.001-1.035) Urine Protein (Negative) Urine Glucose (UA) (Negative) Urine Ketones (Negative) Urine Blood (Negative) Urine Nitrite (Negative) Urine Bilirubin (Negative) Urine Urobilinogen (<2.0) mg/dL Ur Leukocyte Esterase (Negative) Urine HCG, Qual Not Detected (Not Detectd) - EKG Data EKG Comments: EKG demonstrates a normal sinus rhythm with a ventricular rate of 60. DC interval 148. QRS 94. QTC 450. There are no acute ST segment elevation or depressions concerning for ischemic changes Disposition Clinical Impression: Dehydration, Nausea & vomiting Disposition: HOME SELF-CARE Condition: Stable Instructions (If sedation given, give patient instructions): Acute Nausea and Vomiting (ED) Additional Instructions: Please follow-up with your doctor next week. Return to the emergency room and for any new or worsening symptoms Prescriptions: Ondansetron Odt [Zofran Odt] 4 mg PO Q8HR PRN #10 tab PRN Reason: Nausea Is patient prescribed a controlled substance at d/c from ED?: No Referrals: Gisella Smith MD [Primary Care Provider] - 1-2 days Time of Disposition: 21:27
[2019-06-25 22:02] VITALS: BP 145/89; PULSE 74; TEMP 98.7
== END 2019-06-25 22:02 | disposition home or self-care (01) ==
LOC: EC 16:18
DX: E86.0 Dehydration (principal); D72.829 Elevated white blood cell count, unspecified; R19.7 Diarrhea, unspecified; R06.00 Dyspnea, unspecified; J45.909 Unspecified asthma, uncomplicated; K21.9 Gastro-esophageal reflux disease without esophagitis; E07.9 Disorder of thyroid, unspecified; D64.9 Anemia, unspecified; F41.9 Anxiety disorder, unspecified; F32.9 Major depressive disorder, single episode, unspecified; Z87.891 Personal history of nicotine dependence; Z79.890 Hormone replacement therapy; Z79.51 Long term (current) use of inhaled steroids; Z79.899 Other long term (current) drug therapy; Z88.8 Allergy status to other drugs, medicaments and biological substances; Z88.6 Allergy status to analgesic agent; Z91.011 Allergy to milk products; Z88.2 Allergy status to sulfonamides
CPT/HCPCS: 99284; 96374; 96375; 96361 ×3; 36415; 93005; 80053; 84443; 83605; 83690; 85025; 81003; 81025; 71046; 74177; J2060; J2405; S0119; Q9967

== ENCOUNTER 2019-07-14 10:24 | Emergency (ER) | payer OTHER ==
[2019-07-14 10:41] VITALS: BP 123/84; PULSE 84; RESP 16; TEMP 98.3
[2019-07-14] MEDS ORDERED: ONDANSETRON 4 MG/2 ML VIAL IVP STA (10:51)
--- NOTE | 2019-07-14 10:57 | ED ---
Abdominal Pain HPI - General Chief Complaint: Abdominal Pain Stated Complaint: Nausea/low sugar Time Seen by Provider: 07/14/19 10:42 Source: patient Mode of arrival: ambulatory Limitations: no limitations - History of Present Illness Initial Comments: 24-year-old female with PMH of type II diabetes presenting today for chief complaint of nausea, vomiting, low blood glucose x 3 days. She states that there is a viral illness going around with vomiting and diarrhea at her work. Patient states she has not had tommie diarrhea, soft stools but she has had vomiting and nausea. Denies hematemesis. Patient states one day work this week she believes it was Friday she felt nauseated checked her blood glucose which was 75. She believes these were correlated. Patient states she has been eating and drinking. Patient states the nausea persists. Denies abdominal pain, fever, bloody stools, recent travel or . Patient states she has a schedule 12 hour shift and doesnt feel she can make it and presented to the ER for evaluation. Remaining ROS (-). Upon arrival patient appears well. - Related Data Home Medications Medication Instructions Recorded Confirmed Levothyroxine Sodium [Synthroid] 200 mcg PO DAILY 08/12/17 07/14/19 Omeprazole 40 mg PO DAILY PRN 08/12/17 07/14/19 Montelukast [Singulair] 10 mg PO DAILY 11/17/18 07/14/19 Albuterol Inhaler [Ventolin Hfa 1 - 2 puff INHALATION RT-Q6H PRN 01/12/19 07/14/19 Inhaler] Beclomethasone Dip 80 Mcg/Puff 2 puff INHALATION RT-DAILY 01/12/19 07/14/19 [Qvar 80 mcg] FLUoxetine HCL [PROzac] 20 mg PO DAILY 01/12/19 07/14/19 Levothyroxine Sodium [Synthroid] 25 mcg PO DAILY 01/12/19 07/14/19 Ferrous Sulfate [Feosol] 325 mg PO DAILY 06/25/19 07/14/19 Albuterol Nebulized [Ventolin 2.5 mg INHALATION RT-Q4H PRN 07/14/19 07/14/19 Nebulized] Loratadine [Claritin] 10 mg PO DAILY 07/14/19 07/14/19 Previous Rx's Medication Instructions Recorded Ondansetron Odt [Zofran Odt] 4 mg PO Q8HR PRN 3 Days #9 tab 07/14/19 Allergies Allergy/AdvReac Type Severity Reaction Status Date / Time benzonatate Allergy Rash/Hives Verified 07/14/19 10:49 [From Tessalon Perles] ibuprofen [From Motrin] Allergy KIDNEY PAIN Verified 07/14/19 10:49 Milk Containing Products Allergy Unknown Verified 07/14/19 10:49 [Dairy] sulfamethoxazole Allergy Rash/Hives Verified 07/14/19 10:49 [From Bactrim] trimethoprim [From Bactrim] Allergy Rash/Hives Verified 07/14/19 10:49 metoclopramide [From Reglan] AdvReac ANXIETY Verified 07/14/19 10:49 Review of Systems ROS Statement: Those systems with pertinent positive or pertinent negative responses have been documented in the HPI. ROS Other: All systems not noted in ROS Statement are negative. Past Medical History Past Medical History: Asthma, Diabetes Mellitus, GERD/Reflux, Thyroid Disorder Additional Past Medical History / Comment(s): anemia History of Any Multi-Drug Resistant Organisms: None Reported Past Surgical History: Adenoidectomy Additional Past Surgical History / Comment(s): Eye surgery Past Psychological History: Anxiety, Depression Smoking Status: Former smoker Past Alcohol Use History: Occasional Past Drug Use History: Marijuana General Exam - General Exam Comments Initial Comments: General: The patient is awake and alert, in no distress, and does not appear acutely ill. Eye: Pupils are equal, round and reactive to light, extra-ocular movements are intact. No nystagmus. There is normal conjunctiva bilaterally. No signs of icterus. Ears, nose, mouth and throat: There are moist mucous membranes and no oral lesions. Cardiovascular: There is a regular rate and rhythm. No murmur, rub or gallop is appreciated. Respiratory: Lungs are clear to auscultation, respirations are non-labored, carmen ath sounds are equal. No wheezes, stridor, rales, or rhonchi. Gastrointestinal: Soft, non-distended, non-tender abdomen without masses or organomegaly noted. There is no rebound or guarding present. Bowel sounds are unremarkable. Musculoskeletal: Normal ROM, no tenderness. Strength 5/5. Sensation intact. Pulses equal bilaterally 2+. Neurological: A&O x 3. CN II-XII intact, There are no obvious motor or sensory deficits. Coordination appears grossly intact. Speech is normal. Skin: Skin is warm and dry and no rashes or lesions are noted. Psychiatric: Cooperative, appropriate mood & affect, normal judgment. Limitations: no limitations Course Vital Signs 07/14/19 10:38 Temperature 98.3 F Pulse Rate 84 Respiratory 16 Rate Blood Pressure 123/84 O2 Sat by Pulse 98 Oximetry Medical Decision Making - Medical Decision Making 24-year-old female presenting today for chief complaint nausea. Patient states there is a "bug" going around her work. Patient states she has had vomiting since Friday. Patient states she had low blood glucose on Friday she monitors this for type 2 diabetes. Patient states she felt at that time. Patient states she continues to have nausea and some vomiting at present to the ER for possible dehydration. Patient does not appear dry on examination. Patient was given IV hydration. Laboratory studies are stable. HCG negative. Patient given Zofran, symptomatically relief was achieved. At this time I do feel patient is stable for discharge with outpatient primary care follow-up. Return parameters were discussed and patient verbalized understanding. Patient was discharged. Well. - Lab Data Result diagrams: 07/14/19 11:06 07/14/19 11:06 Lab Results 07/14/19 07/14/19 07/14/19 Range/Units 11:06 11:06 11:06 WBC 10.0 (3.8-10.6) k/uL RBC 5.31 (3.80-5.40) m/uL Hgb 11.7 (11.4-16.0) gm/dL Hct 38.5 (34.0-46.0) % MCV 72.5 L (80.0-100.0) fL MCH 22.0 L (25.0-35.0) pg MCHC 30.3 L (31.0-37.0) g/dL RDW 18.5 H (11.5-15.5) % Plt Count 436 (150-450) k/uL Neutrophils % 68 % Lymphocytes % 23 % Monocytes % 5 % Eosinophils % 2 % Basophils % 0 % Neutrophils # 6.8 (1.3-7.7) k/uL Lymphocytes # 2.3 (1.0-4.8) k/uL Monocytes # 0.5 (0-1.0) k/uL Eosinophils # 0.2 (0-0.7) k/uL Basophils # 0.0 (0-0.2) k/uL Hypochromasia Marked Anisocytosis Slight Microcytosis Moderate Sodium 140 (137-145) mmol/L Potassium 4.6 (3.5-5.1) mmol/L Chloride 106 (98-107) mmol/L Carbon Dioxide 24 (22-30) mmol/L Anion Gap 10 mmol/L BUN 12 (7-17) mg/dL Creatinine 0.66 (0.52-1.04) mg/dL Est GFR (CKD-EPI)AfAm >90 (>60 ml/min/1.73 sqM) Est GFR (CKD-EPI)NonAf >90 (>60 ml/min/1.73 sqM) Glucose 119 H (74-99) mg/dL Calcium 9.5 (8.4-10.2) mg/dL Total Bilirubin 0.3 (0.2-1.3) mg/dL AST 26 (14-36) U/L ALT 23 (9-52) U/L Alkaline Phosphatase 63 (38-126) U/L Total Protein 7.9 (6.3-8.2) g/dL Albumin 4.1 (3.5-5.0) g/dL Urine Color Urine Appearance (Clear) Urine pH (5.0-8.0) Ur Specific [place] (1.001-1.035) Urine Protein (Negative) Urine Glucose (UA) (Negative) Urine Ketones (Negative) Urine Blood (Negative) Urine Nitrite (Negative) Urine Bilirubin (Negative) Urine Urobilinogen (<2.0) mg/dL Ur Leukocyte Esterase (Negative) Urine RBC (0-5) /hpf Urine WBC (0-5) /hpf Ur Squamous Epith Cells (0-4) /hpf Urine Bacteria (None) /hpf Urine Mucus (None) /hpf Urine HCG, Qual Not Detected (Not Detectd) 07/14/19 Range/Units 11:06 WBC (3.8-10.6) k/uL RBC (3.80-5.40) m/uL Hgb (11.4-16.0) gm/dL Hct (34.0-46.0) % MCV (80.0-100.0) fL MCH (25.0-35.0) pg MCHC (31.0-37.0) g/dL RDW (11.5-15.5) % Plt Count (150-450) k/uL Neutrophils % % Lymphocytes % % Monocytes % % Eosinophils % % Basophils % % Neutrophils # (1.3-7.7) k/uL Lymphocytes # (1.0-4.8) k/uL Monocytes # (0-1.0) k/uL Eosinophils # (0-0.7) k/uL Basophils # (0-0.2) k/uL Hypochromasia Anisocytosis Microcytosis Sodium (137-145) mmol/L Potassium (3.5-5.1) mmol/L Chloride (98-107) mmol/L Carbon Dioxide (22-30) mmol/L Anion Gap mmol/L BUN (7-17) mg/dL Creatinine (0.52-1.04) mg/dL Est GFR (CKD-EPI)AfAm (>60 ml/min/1.73 sqM) Est GFR (CKD-EPI)NonAf (>60 ml/min/1.73 sqM) Glucose (74-99) mg/dL Calcium (8.4-10.2) mg/dL Total Bilirubin (0.2-1.3) mg/dL AST (14-36) U/L ALT (9-52) U/L Alkaline Phosphatase (38-126) U/L Total Protein (6.3-8.2) g/dL Albumin (3.5-5.0) g/dL Urine Color Yellow Urine Appearance Cloudy H (Clear) Urine pH 5.5 (5.0-8.0) Ur Specific [place] 1.020 (1.001-1.035) Urine Protein Negative (Negative) Urine Glucose (UA) Negative (Negative) Urine Ketones Negative (Negative) Urine Blood Small H (Negative) Urine Nitrite Negative (Negative) Urine Bilirubin Negative (Negative) Urine Urobilinogen <2.0 (<2.0) mg/dL Ur Leukocyte Esterase Negative (Negative) Urine RBC 1 (0-5) /hpf Urine WBC 1 (0-5) /hpf Ur Squamous Epith Cells 9 H (0-4) /hpf Urine Bacteria Rare H (None) /hpf Urine Mucus Rare H (None) /hpf Urine HCG, Qual (Not Detectd) Disposition Clinical Impression: Nausea & vomiting Disposition: HOME SELF-CARE Condition: Good Instructions (If sedation given, give patient instructions): Gastroenteritis (ED) Additional Instructions: Please use medication as discussed. Please follow-up with family doctor in the next 2 days. Please return to emergency room if the symptoms increase or worsen or for any other concerns. Prescriptions: Ondansetron Odt [Zofran Odt] 4 mg PO Q8HR PRN 3 Days #9 tab PRN Reason: Nausea Is patient prescribed a controlled substance at d/c from ED?: No Referrals: Gisella Smith MD [Primary Care Provider] - 1-2 days Time of Disposition: 11:58
[2019-07-14 11:20] LABS: Anisocytosis Slight; Basophils % (A) 0 %; Eosinophils # (A) 0.2 k/uL (0-0.7); Eosinophils % (A) 2 %; HCT 38.5 % (34.0-46.0); HGB 11.7 gm/dL (11.4-16.0); Hypochromasia Marked; Lymphocytes # (A) 2.3 k/uL (1.0-4.8); Lymphocytes % (A) 23 %; MCHC 30.3 g/dL (31.0-37.0); MCV 72.5 fL (80.0-100.0); Mean Platelet Volume 7.5; Microcytosis Moderate; Monocytes # (A) 0.5 k/uL (0-1.0); Monocytes % (A) 5 %; Neutrophils # (A) 6.8 k/uL (1.3-7.7); Neutrophils % (A) 68 %; Platelet Count 436 k/uL (150-450); RBC 5.31 m/uL (3.80-5.40); RDW 18.5 % (11.5-15.5)
[2019-07-14 11:30] LABS: ALT 23 U/L (9-52); AST 26 U/L (14-36); African American GFR (CKD) >90 (>60 ml/min/1.73 sqM); Albumin 4.1 g/dL (3.5-5.0); Alkaline Phosphatase 63 U/L (38-126); Anion Gap 10 mmol/L; Blood Urea Nitrogen 12 mg/dL (7-17); Calcium 9.5 mg/dL (8.4-10.2); Carbon Dioxide 24 mmol/L (22-30); Chloride 106 mmol/L (98-107); Glucose 119 mg/dL (74-99); Potassium 4.6 mmol/L (3.5-5.1); Sodium 140 mmol/L (137-145); Total Bilirubin 0.3 mg/dL (0.2-1.3); Total Protein 7.9 g/dL (6.3-8.2)
[2019-07-14 12:02] LABS: Appearance,Urine Cloudy (Clear); Bacteria,Urine Rare /hpf; Bilirubin,Urine Negative (Negative); Blood,Urine Small (Negative); Color,Urine Yellow; Glucose,Urine (UA) Negative (Negative); Ketones,Urine Negative (Negative); Leukocyte Esterase,Urine Negative (Negative); Mucus,Urine Rare /hpf; Nitrite,Urine Negative (Negative); PH, Urine 5.5 (5.0-8.0); Protein,Urine Negative (Negative); RBC,Urine 1 /hpf (0-5); Squamous Epithelial Cell,Urine 9 /hpf (0-4); Urobilinogen,Urine <2.0 mg/dL (<2.0); WBC,Urine 1 /hpf (0-5)
== END 2019-07-14 12:11 | disposition home or self-care (01) ==
LOC: EC 10:24
DX: R11.2 Nausea with vomiting, unspecified (principal); J45.909 Unspecified asthma, uncomplicated; K21.9 Gastro-esophageal reflux disease without esophagitis; E07.9 Disorder of thyroid, unspecified; D64.9 Anemia, unspecified; F32.9 Major depressive disorder, single episode, unspecified; F41.9 Anxiety disorder, unspecified; Z87.891 Personal history of nicotine dependence; Z88.2 Allergy status to sulfonamides; Z88.6 Allergy status to analgesic agent; Z88.8 Allergy status to other drugs, medicaments and biological substances; Z91.011 Allergy to milk products; Z79.51 Long term (current) use of inhaled steroids; Z79.890 Hormone replacement therapy; Z79.899 Other long term (current) drug therapy
CPT/HCPCS: 36415; 80053; 85025; 81001; 81025; 99284; 96374; J2405

== ENCOUNTER 2019-08-20 10:45 | Emergency (ER) | payer OTHER ==
[2019-08-20 11:05] VITALS: BP 129/89; PULSE 64; RESP 16; TEMP 98.1
--- NOTE | 2019-08-20 11:55 | ED ---
Skin/Abscess/FB HPI - General Chief complaint: Skin/Abscess/Foreign Body Stated complaint: ENT Time Seen by Provider: 08/20/19 11:09 Source: patient Mode of arrival: ambulatory Limitations: no limitations - History of Present Illness Initial comments: Patient is a 24-year-old female presenting to emergency Department with complaints of an infected left earlobe 5 days. Patient normally wears gauges and her years that she's had for years now. Patient states she noticed a pimple-like wound on her left earlobe a partially 5 days ago and now has progr essed into redness, swelling, pain. Patient has tried topical antibiotic without relief. She has taken out gages and symptoms are not improving. Patient is now having pain on the left side of her neck. Patient denies fever, chills, nausea, vomiting. Patient has no other complaints at this time. Upon arrival to ER, vital signs are stable. - Related Data Home Medications Medication Instructions Recorded Confirmed Levothyroxine Sodium [Synthroid] 200 mcg PO DAILY 08/12/17 07/14/19 Omeprazole 40 mg PO DAILY PRN 08/12/17 07/14/19 Montelukast [Singulair] 10 mg PO DAILY 11/17/18 07/14/19 Albuterol Inhaler [Ventolin Hfa 1 - 2 puff INHALATION RT-Q6H PRN 01/12/19 07/14/19 Inhaler] Beclomethasone Dip 80 Mcg/Puff 2 puff INHALATION RT-DAILY 01/12/19 07/14/19 [Qvar 80 mcg] FLUoxetine HCL [PROzac] 20 mg PO DAILY 01/12/19 07/14/19 Levothyroxine Sodium [Synthroid] 25 mcg PO DAILY 01/12/19 07/14/19 Ferrous Sulfate [Feosol] 325 mg PO DAILY 06/25/19 07/14/19 Albuterol Nebulized [Ventolin 2.5 mg INHALATION RT-Q4H PRN 07/14/19 07/14/19 Nebulized] Loratadine [Claritin] 10 mg PO DAILY 07/14/19 07/14/19 Previous Rx's Medication Instructions Recorded Ondansetron Odt [Zofran Odt] 4 mg PO Q8HR PRN 3 Days #9 tab 07/14/19 Cephalexin [Keflex] 500 mg PO Q6HR 7 Days #28 cap 08/20/19 Mupirocin 2% Oint [Bactroban 2% 1 applic TOPICAL TID 5 Days #1 tube 08/20/19 Oint] Allergies Allergy/AdvReac Type Severity Reaction Status Date / Time benzonatate Allergy Rash/Hives Verified 08/20/19 11:03 [From Tessalon Perles] ibuprofen [From Motrin] Allergy KIDNEY PAIN Verified 08/20/19 11:03 Milk Containing Products Allergy Unknown Verified 08/20/19 11:03 [Dairy] sulfamethoxazole Allergy Rash/Hives Verified 08/20/19 11:03 [From Bactrim] trimethoprim [From Bactrim] Allergy Rash/Hives Verified 08/20/19 11:03 metoclopramide [From Reglan] AdvReac ANXIETY Verified 08/20/19 11:03 Review of Systems ROS Statement: Those systems with pertinent positive or pertinent negative responses have been documented in the HPI. ROS Other: All systems not noted in ROS Statement are negative. Past Medical History Past Medical History: Asthma, Diabetes Mellitus, GERD/Reflux, Thyroid Disorder Additional Past Medical History / Comment(s): anemia History of Any Multi-Drug Resistant Organisms: None Reported Past Surgical History: Adenoidectomy Additional Past Surgical History / Comment(s): Eye surgery Past Psychological History: Anxiety, Depression Smoking Status: Former smoker Past Alcohol Use History: Occasional Past Drug Use History: Marijuana General Exam - General Exam Comments Initial Comments: GENERAL: Well-appearing, well-nourished and in no acute distress. HEAD: Atraumatic, normocephalic. EYES: Pupils equal round and reactive to light, extraocular movements intact, sclera anicteric, conjunctiva are normal. ENT: TMs normal, nares patent, oropharynx clear without exudates. Moist mucous membranes. There is erythema and swelling of the left lower earlobe as well as clear to yellow dried drainage. Painful to the touch. NECK: Normal range of motion, supple without lymphadenopathy or JVD. Mild pain with palpation of the left side of the neck, no lymph nodes felt. LUNGS: Breath sounds clear to auscultation bilaterally and equal. No wheezes rales or rhonchi. HEART: Regular rate and rhythm without murmurs, rubs or gallops. ABDOMEN: Soft, nontender, normoactive bowel sounds. No guarding, no rebound. No masses appreciated. : Deferred EXTREMITIES: Normal range of motion, no pitting or edema. No clubbing or cyanosis. NEUROLOGICAL: Cranial nerves II through XII grossly intact. Normal speech, normal gait. PSYCH: Normal mood, normal affect. SKIN: Warm, Dry, normal turgor, no rashes or lesions noted. Limitations: no limitations Course Vital Signs 08/20/19 11:03 Temperature 98.1 F Pulse Rate 64 Respiratory 16 Rate Blood Pressure 129/89 O2 Sat by Pulse 99 Oximetry Medical Decision Making - Medical Decision Making She has a 24-year-old female presenting with left earlobe pain 5 days. On exam patient has a swollen and erythematous left earlobe that did have alex in it. There is some clear to yellow dried drainage on the ear as well. There is some mild pain with palpation of the left side of the neck, no lymph nodes. Was discussed with patient that we will start her on a keflex for possible cellulitis as well as a topical antibiotic ointment. Patient will follow up with her PCP if symptoms do not improve in 3 days. She is in agreement with this plan of care. Return parameters were discussed with the patient and she verbalized understanding. Case discussed with Dr. Escamilla. Disposition Clinical Impression: Infection of left earlobe Disposition: HOME SELF-CARE Condition: Stable Instructions (If sedation given, give patient instructions): Pierced Earlobe Infection (ED) Additional Instructions: Please return to the Emergency Department if symptoms worsen or any other concerns. Take antibiotic as prescribed Follow-up as discussed if symptoms do not improved Prescriptions: Mupirocin 2% Oint [Bactroban 2% Oint] 1 applic TOPICAL TID 5 Days #1 tube Cephalexin [Keflex] 500 mg PO Q6HR 7 Days #28 cap Is patient prescribed a controlled substance at d/c from ED?: No Referrals: Nonstaff,Physician [Primary Care Provider] - 1-2 days
== END 2019-08-20 12:26 | disposition home or self-care (01) ==
LOC: EC 10:45
DX: L08.9 Local infection of the skin and subcutaneous tissue, unspecified (principal); M54.2 Cervicalgia; J45.909 Unspecified asthma, uncomplicated; E07.9 Disorder of thyroid, unspecified; D64.9 Anemia, unspecified; F32.9 Major depressive disorder, single episode, unspecified; F41.9 Anxiety disorder, unspecified; Z87.891 Personal history of nicotine dependence; Z88.2 Allergy status to sulfonamides; Z88.6 Allergy status to analgesic agent; Z88.8 Allergy status to other drugs, medicaments and biological substances; Z91.011 Allergy to milk products; Z79.51 Long term (current) use of inhaled steroids; Z79.890 Hormone replacement therapy; Z79.899 Other long term (current) drug therapy
CPT/HCPCS: 99283

== ENCOUNTER 2019-08-27 17:08 | Emergency (ER) | payer OTHER ==
[2019-08-27] MEDS ORDERED: ONDANSETRON 4 MG/2 ML VIAL IVP STA (18:45)
[2019-08-27] MEDS ORDERED: SODIUM CHLORIDE 0.9% 1,000 ML IV STA (18:45)
[2019-08-27 19:31] LABS: Basophils # (A) 0.1 k/uL (0-0.2); Basophils % (A) 0 %; Eosinophils # (A) 0.2 k/uL (0-0.7); Eosinophils % (A) 2 %; HCT 39.4 % (34.0-46.0); HGB 12.6 gm/dL (11.4-16.0); Hypochromasia Moderate; Lymphocytes # (A) 2.5 k/uL (1.0-4.8); Lymphocytes % (A) 18 %; MCH 23.5 pg (25.0-35.0); MCHC 31.9 g/dL (31.0-37.0); MCV 73.6 fL (80.0-100.0); Mean Platelet Volume 6.6; Microcytosis Slight; Monocytes # (A) 0.5 k/uL (0-1.0); Monocytes % (A) 3 %; Neutrophils # (A) 10.8 k/uL (1.3-7.7); Neutrophils % (A) 76 %; Platelet Count 506 k/uL (150-450); RBC 5.36 m/uL (3.80-5.40); RDW 15.8 % (11.5-15.5); WBC 14.2 k/uL (3.8-10.6)
[2019-08-27 19:40] LABS: ALT 19 U/L (9-52); AST 23 U/L (14-36); African American GFR (CKD) >90 (>60 ml/min/1.73 sqM); Albumin 4.1 g/dL (3.5-5.0); Alkaline Phosphatase 66 U/L (38-126); Anion Gap 11 mmol/L; Blood Urea Nitrogen 9 mg/dL (7-17); Calcium 9.3 mg/dL (8.4-10.2); Carbon Dioxide 26 mmol/L (22-30); Chloride 103 mmol/L (98-107); Glucose 98 mg/dL (74-99); Potassium 4.1 mmol/L (3.5-5.1); Sodium 140 mmol/L (137-145); Total Bilirubin 0.3 mg/dL (0.2-1.3); Total Protein 8.1 g/dL (6.3-8.2)
[2019-08-27 19:54] LABS: Appearance,Urine Cloudy (Clear); Bilirubin,Urine Negative (Negative); Blood,Urine Negative (Negative); Color,Urine Yellow; Glucose,Urine (UA) Negative (Negative); Ketones,Urine Negative (Negative); Leukocyte Esterase,Urine Negative (Negative); Mucus,Urine Few /hpf; Nitrite,Urine Negative (Negative); PH, Urine 5.5 (5.0-8.0); Protein,Urine Trace (Negative); RBC,Urine 3 /hpf (0-5); Specific Gravity,Urine 1.017 (1.001-1.035); Squamous Epithelial Cell,Urine 62 /hpf (0-4); Urobilinogen,Urine <2.0 mg/dL (<2.0); WBC,Urine 1 /hpf (0-5)
--- NOTE | 2019-08-27 20:19 | XR ---
EXAMINATION TYPE: XR KUB DATE OF EXAM: 08/27/2019 COMPARISON: 04/03/2018 HISTORY: Nausea and vomiting TECHNIQUE: 2 views upright FINDINGS: There is no sign of intestinal obstruction or pneumoperitoneum. Fecal pattern is normal. Th ere is no sign of a mass. There are no pathologic calcifications over the kidneys. IMPRESSION: Nonacute abdomen. No change.
[2019-08-27] MEDS ORDERED: ONDANSETRON 4 MG ODT STARTER PACK 2 TAB BTL PO STA (20:57)
--- NOTE | 2019-08-27 20:59 | ED ---
Nausea/Vomiting/Diarrhea HPI - General Chief complaint: Nausea/Vomiting/Diarrhea Stated complaint: NVD Source: patient Mode of arrival: ambulatory Limitations: no limitations - History of Present Illness Initial comments: Patient is a 24-year-old female who presents to the emergency room with reported nausea and vomiting the past 3 days. She states she has been around her parents who have recently been suffering from a GI bug. States that she may have caught something from them. She has had persistent nausea with a few episodes of nonbilious, nonbloody vomiting. Reports that she is able to hold down water however she's had poor food intake because she is afraid of vomiting. Denies fevers or chills. Has mild abdominal cramping. Denies dysuria, hematuria or difficulty voiding. Heart that she does have intermittent diarrhea and constipation. She is supposed to be having a colonoscopy as she has a working diagnosis of IBS. She denies any back or flank pain. No chest pain or shortness of breath. Denies the possibility been . No abnormal vaginal bleeding or discharge. There are no other alleviating, precipitating or modifying factors - Related Data Home Medications Medication Instructions Recorded Confirmed Levothyroxine Sodium [Synthroid] 200 mcg PO DAILY 08/12/17 08/27/19 Omeprazole 40 mg PO DAILY PRN 08/12/17 08/27/19 Montelukast [Singulair] 10 mg PO DAILY 11/17/18 08/27/19 Albuterol Inhaler [Ventolin Hfa 1 - 2 puff INHALATION RT-Q6H PRN 01/12/19 08/27/19 Inhaler] Beclomethasone Dip 80 Mcg/Puff 2 puff INHALATION RT-DAILY 01/12/19 08/27/19 [Qvar 80 mcg] FLUoxetine HCL [PROzac] 20 mg PO DAILY 01/12/19 08/27/19 Levothyroxine Sodium [Synthroid] 25 mcg PO DAILY 01/12/19 08/27/19 Ferrous Sulfate [Feosol] 325 mg PO DAILY 06/25/19 08/27/19 Albuterol Nebulized [Ventolin 2.5 mg INHALATION RT-Q4H PRN 07/14/19 08/27/19 Nebulized] Loratadine [Claritin] 10 mg PO DAILY 07/14/19 08/27/19 Previous Rx's Medication Instructions Recorded Ondansetron Odt [Zofran Odt] 4 mg PO Q8HR PRN #10 tab 08/27/19 Allergies Allergy/AdvReac Type Severity Reaction Status Date / Time benzonatate Allergy Rash/Hives Verified 08/27/19 18:35 [From Tessalon Perles] Milk Containing Products Allergy Unknown Verified 08/27/19 18:35 [Dairy] sulfamethoxazole Allergy Rash/Hives Verified 08/27/19 18:35 [From Bactrim] trimethoprim [From Bactrim] Allergy Rash/Hives Verified 08/27/19 18:35 ibuprofen [From Motrin] AdvReac KIDNEY PAIN Verified 08/27/19 18:35 metoclopramide [From Reglan] AdvReac ANXIETY Verified 08/27/19 18:35 Review of Systems ROS Statement: Those systems with pertinent positive or pertinent negative responses have been documented in the HPI. ROS Other: All systems not noted in ROS Statement are negative. Past Medical History Past Medical History: Asthma, Diabetes Mellitus, GERD/Reflux, Thyroid Disorder Additional Past Medical History / Comment(s): anemia History of Any Multi-Drug Resistant Organisms: None Reported Past Surgical History: Adenoidectomy Additional Past Surgical History / Comment(s): Eye surgery Past Psychological History: Anxiety, Depression Smoking Status: Former smoker Past Alcohol Use History: Occasional Past Drug Use History: Marijuana General Exam Limitations: no limitations General appearance: alert, in no apparent distress Head exam: Present: atraumatic, normocephalic, normal inspection Eye exam: Present: normal appearance, PERRL, EOMI. Absent: scleral icterus, conjunctival injection, periorbital swelling ENT exam: Present: normal exam, mucous membranes moist Neck exam: Present: normal inspection. Absent: tenderness, meningismus, lymphadenopathy Respiratory exam: Present: normal lung sounds bilaterally. Absent: respiratory distress, wheezes, rales, rhonchi, stridor Cardiovascular Exam: Present: regular rate, normal rhythm, normal heart sounds. Absent: systolic murmur, diastolic murmur, rubs, gallop, clicks GI/Abdominal exam: Present: soft, normal bowel sounds. Absent: distended, tenderness, guarding, rebound, rigid Extremities exam: Present: normal inspection, full ROM, normal capillary refill. Absent: tenderness, pedal edema, joint swelling, calf tenderness Back exam: Present: normal inspection Neurological exam: Present: alert, oriented X3, CN II-XII intact Psychiatric exam: Present: normal affect, normal mood Skin exam: Present: warm, dry, intact, normal color. Absent: rash Course Vital Signs 08/27/19 08/27/19 17:14 21:17 Temperature 97.7 F 98.2 F Pulse Rate 95 81 Respiratory 20 18 Rate Blood Pressure 154/100 145/94 O2 Sat by Pulse 99 98 Oximetry Medical Decision Making - Medical Decision Making Upon arrival the patient is placed into room 23. A thorough history and physical exam was performed. I did recommend laboratory studies and an abdominal x-ray. Peripheral IV was established. The patient was given a liter bolus of normal saline. I also provided her with 4 mg of Zofran. Laboratory studies demonstrated what blood cell count of 14.2. Platelets of 506. CMP is unremarkable. Urinalysis shows trace protein with 62 squamous epithelial cells and few mucus. HCG is negative. KUB demonstrates a nonacute abdomen. I did discuss the results with the patient. I did recommend CT exam of the patient's abdomen and pelvis however she refused. I did discuss the diagnosis, differential and treatment options. She is reevaluated and reports improvement in her nausea. At this time the patient will be discharged home with a Zofran starter pack. She'll be given a prescription for Zofran. She has an appointment to follow up with her GI doctor on Friday. The patient has any new or worsening symptoms she should return to the emergency room. The patient was in agreement with the treatment plan and she was discharged home in stable condition - Lab Data Result diagrams: 08/27/19 19:18 08/27/19 19:18 Lab Results 08/27/19 08/27/19 08/27/19 Range/Units 19:18 19:18 19:18 WBC 14.2 H (3.8-10.6) k/uL RBC 5.36 (3.80-5.40) m/uL Hgb 12.6 (11.4-16.0) gm/dL Hct 39.4 (34.0-46.0) % MCV 73.6 L (80.0-100.0) fL MCH 23.5 L (25.0-35.0) pg MCHC 31.9 (31.0-37.0) g/dL RDW 15.8 H (11.5-15.5) % Plt Count 506 H (150-450) k/uL Neutrophils % 76 % Lymphocytes % 18 % Monocytes % 3 % Eosinophils % 2 % Basophils % 0 % Neutrophils # 10.8 H (1.3-7.7) k/uL Lymphocytes # 2.5 (1.0-4.8) k/uL Monocytes # 0.5 (0-1.0) k/uL Eosinophils # 0.2 (0-0.7) k/uL Basophils # 0.1 (0-0.2) k/uL Hypochromasia Moderate Microcytosis Slight Sodium 140 (137-145) mmol/L Potassium 4.1 (3.5-5.1) mmol/L Chloride 103 (98-107) mmol/L Carbon Dioxide 26 (22-30) mmol/L Anion Gap 11 mmol/L BUN 9 (7-17) mg/dL Creatinine 0.68 (0.52-1.04) mg/dL Est GFR (CKD-EPI)AfAm >90 (>60 ml/min/1.73 sqM) Est GFR (CKD-EPI)NonAf >90 (>60 ml/min/1.73 sqM) Glucose 98 (74-99) mg/dL Calcium 9.3 (8.4-10.2) mg/dL Total Bilirubin 0.3 (0.2-1.3) mg/dL AST 23 (14-36) U/L ALT 19 (9-52) U/L Alkaline Phosphatase 66 (38-126) U/L Total Protein 8.1 (6.3-8.2) g/dL Albumin 4.1 (3.5-5.0) g/dL Lipase 153 (23-300) U/L Urine Color Yellow Urine Appearance Cloudy H (Clear) Urine pH 5.5 (5.0-8.0) Ur Specific Mal[place] 1.017 (1.001-1.035) Urine Protein Trace H (Negative) Urine Glucose (UA) Negative (Negative) Urine Ketones Negative (Negative) Urine Blood Negative (Negative) Urine Nitrite Negative (Negative) Urine Bilirubin Negative (Negative) Urine Urobilinogen <2.0 (<2.0) mg/dL Ur Leukocyte Esterase Negative (Negative) Urine RBC 3 (0-5) /hpf Urine WBC 1 (0-5) /hpf Ur Squamous Epith Cells 62 H (0-4) /hpf Urine Mucus Few H (None) /hpf Urine HCG, Qual (Not Detectd) 08/27/19 Range/Units 19:18 WBC (3.8-10.6) k/uL RBC (3.80-5.40) m/uL Hgb (11.4-16.0) gm/dL Hct (34.0-46.0) % MCV (80.0-100.0) fL MCH (25.0-35.0) pg MCHC (31.0-37.0) g/dL RDW (11.5-15.5) % Plt Count (150-450) k/uL Neutrophils % % Lymphocytes % % Monocytes % % Eosinophils % % Basophils % % Neutrophils # (1.3-7.7) k/uL Lymphocytes # (1.0-4.8) k/uL Monocytes # (0-1.0) k/uL Eosinophils # (0-0.7) k/uL Basophils # (0-0.2) k/uL Hypochromasia Microcytosis Sodium (137-145) mmol/L Potassium (3.5-5.1) mmol/L Chloride (98-107) mmol/L Carbon Dioxide (22-30) mmol/L Anion Gap mmol/L BUN (7-17) mg/dL Creatinine (0.52-1.04) mg/dL Est GFR (CKD-EPI)AfAm (>60 ml/min/1.73 sqM) Est GFR (CKD-EPI)NonAf (>60 ml/min/1.73 sqM) Glucose (74-99) mg/dL Calcium (8.4-10.2) mg/dL Total Bilirubin (0.2-1.3) mg/dL AST (14-36) U/L ALT (9-52) U/L Alkaline Phosphatase (38-126) U/L Total Protein (6.3-8.2) g/dL Albumin (3.5-5.0) g/dL Lipase (23-300) U/L Urine Color Urine Appearance (Clear) Urine pH (5.0-8.0) Ur Specific [place] (1.001-1.035) Urine Protein (Negative) Urine Glucose (UA) (Negative) Urine Ketones (Negative) Urine Blood (Negative) Urine Nitrite (Negative) Urine Bilirubin (Negative) Urine Urobilinogen (<2.0) mg/dL Ur Leukocyte Esterase (Negative) Urine RBC (0-5) /hpf Urine WBC (0-5) /hpf Ur Squamous Epith Cells (0-4) /hpf Urine Mucus (None) /hpf Urine HCG, Qual Not Detected (Not Detectd) Disposition Clinical Impression: Nausea & vomiting, Leukocytosis Disposition: HOME SELF-CARE Condition: Stable Instructions (If sedation given, give patient instructions): Acute Nausea and Vomiting (ED) Additional Instructions: Please follow-up with your primary care doctor in 2-4 days. Also follow-up with your GI physician. Take Zofran as needed. Return to the emergency room for any new or worsening symptoms Prescriptions: Ondansetron Odt [Zofran Odt] 4 mg PO Q8HR PRN #10 tab PRN Reason: Nausea Is patient prescribed a controlled substance at d/c from ED?: No Referrals: None,Stated [Primary Care Provider] - 1-2 days Time of Disposition: 20:59
[2019-08-27 21:17] VITALS: BP 145/94; PULSE 81; RESP 18; TEMP 98.2
== END 2019-08-27 21:17 | disposition home or self-care (01) ==
LOC: EC 17:08
DX: D72.829 Elevated white blood cell count, unspecified (principal); R11.2 Nausea with vomiting, unspecified; J45.909 Unspecified asthma, uncomplicated; E11.9 Type 2 diabetes mellitus without complications; K21.9 Gastro-esophageal reflux disease without esophagitis; E07.9 Disorder of thyroid, unspecified; F41.9 Anxiety disorder, unspecified; F32.9 Major depressive disorder, single episode, unspecified; D64.9 Anemia, unspecified; Z79.51 Long term (current) use of inhaled steroids; Z79.890 Hormone replacement therapy; Z79.899 Other long term (current) drug therapy; Z88.2 Allergy status to sulfonamides; Z88.6 Allergy status to analgesic agent; Z88.8 Allergy status to other drugs, medicaments and biological substances; Z87.891 Personal history of nicotine dependence
CPT/HCPCS: 36415; 80053; 83690; 85025; 81001; 81025; 74018; 99284; 96374; 96361; J2405; S0119

== ENCOUNTER 2019-10-23 12:26 | Emergency (ER) | payer OTHER ==
[2019-10-23 12:57] VITALS: RESP 18
--- NOTE | 2019-10-23 14:23 | ED ---
Nausea/Vomiting/Diarrhea HPI - General Chief complaint: Nausea/Vomiting/Diarrhea Stated complaint: Diarrhea x one week Time Seen by Provider: 10/23/19 14:22 Source: patient, family Mode of arrival: ambulatory Limitations: no limitations - History of Present Illness Initial comments: 24-year-old female presenting for nausea vomiting 2 weeks, diarrhea 1 week. Patient states she has history of IBS and she has chronic episodes of nausea vomiting on and off throughout the year. Patient states she's had diarrhea for the past week. Patient denies any bloody stools. Patient states that she is no stated abdominal pain was concerned she is dehydrated presents emergency department for evaluation. Remaining review of system negative patient denies any fevers melena, emesis. Patient denies dysuria urgency frequency back or flank pain. Patient appears well upon arrival afebrile - Related Data Home Medications Medication Instructions Recorded Confirmed Levothyroxine Sodium [Synthroid] 200 mcg PO DAILY 08/12/17 08/27/19 Omeprazole 40 mg PO DAILY PRN 08/12/17 08/27/19 Montelukast [Singulair] 10 mg PO DAILY 11/17/18 08/27/19 Albuterol Inhaler [Ventolin Hfa 1 - 2 puff INHALATION RT-Q6H PRN 01/12/19 08/27/19 Inhaler] Beclomethasone Dip 80 Mcg/Puff 2 puff INHALATION RT-DAILY 01/12/19 08/27/19 [Qvar 80 mcg] FLUoxetine HCL [PROzac] 20 mg PO DAILY 01/12/19 08/27/19 Levothyroxine Sodium [Synthroid] 25 mcg PO DAILY 01/12/19 08/27/19 Ferrous Sulfate [Feosol] 325 mg PO DAILY 06/25/19 08/27/19 Albuterol Nebulized [Ventolin 2.5 mg INHALATION RT-Q4H PRN 07/14/19 08/27/19 Nebulized] Loratadine [Claritin] 10 mg PO DAILY 07/14/19 08/27/19 Previous Rx's Medication Instructions Recorded Ondansetron Odt [Zofran Odt] 4 mg PO Q8HR PRN #10 tab 08/27/19 Ondansetron Odt [Zofran Odt] 4 mg PO Q8HR PRN 3 Days #9 tab 10/23/19 Allergies Allergy/AdvReac Type Severity Reaction Status Date / Time benzonatate Allergy Rash/Hives Verified 10/23/19 12:55 [From Tessalon Perles] Milk Containing Products Allergy Unknown Verified 10/23/19 12:55 [Dairy] sulfamethoxazole Allergy Rash/Hives Verified 10/23/19 12:55 [From Bactrim] trimethoprim [From Bactrim] Allergy Rash/Hives Verified 10/23/19 12:55 ibuprofen [From Motrin] AdvReac KIDNEY PAIN Verified 10/23/19 12:55 metoclopramide [From Reglan] AdvReac ANXIETY Verified 10/23/19 12:55 Review of Systems ROS Statement: Those systems with pertinent positive or pertinent negative responses have been documented in the HPI. ROS Other: All systems not noted in ROS Statement are negative. Past Medical History Past Medical History: Asthma, Diabetes Mellitus, GERD/Reflux, Thyroid Disorder Additional Past Medical History / Comment(s): anemia History of Any Multi-Drug Resistant Organisms: None Reported Past Surgical History: Adenoidectomy Additional Past Surgical History / Comment(s): Eye surgery Past Psychological History: Anxiety, Depression Smoking Status: Former smoker Past Alcohol Use History: Occasional Past Drug Use History: Marijuana General Exam - General Exam Comments Initial Comments: General: The patient is awake and alert, in no distress, and does not appear acutely ill. Eye: +3 mm pupils are equal, round and reactive to light, extra-ocular movements are intact. No nystagmus. There is normal conjunctiva bilaterally. No signs of icterus. Ears, nose, mouth and throat: There are moist mucous membranes and no oral lesions. Neck: The neck is supple, there is no tenderness or JVD. Cardiovascular: There is a regular rate and rhythm. No murmur, rub or gallop is appreciated. Respiratory: Lungs are clear to auscultation, respirations are non-labored, breath sounds are equal. No wheezes, stridor, rales, or rhonchi. Gastrointestinal: Soft, non-distended, non-tender abdomen without masses or organomegaly noted. There is no rebound or guarding present. Musculoskeletal: Normal ROM, no tenderness. Strength 5/5. Sensation intact. Radial pulses equal bilaterally 2+. Neurological: A&O x 3. CN II-XII intact grossly, There are no obvious motor or sensory deficits. Coordination appears grossly intact. Speech is normal. Skin: Skin is warm and dry and no rashes or lesions are noted. Psychiatric: Cooperative, appropriate mood & affect, normal judgment. Limitations: no limitations Course Vital Signs 10/23/19 10/23/19 12:56 15:33 Temperature 97.8 F 98.5 F Pulse Rate 102 H 83 Respiratory 18 18 Rate Blood Pressure 136/96 132/87 O2 Sat by Pulse 95 99 Oximetry Medical Decision Making - Medical Decision Making Hydrated well-appearing 24-year-old female presenting for nausea vomiting on and off 2 weeks, diarrhea 1 week. Patient appears nontoxic laboratory studies unremarkable aside from mild leukocytosis. Patient given IV fluids anti- emetics. Patient had benign abdominal exam she states she cannot provide stool sample. I recommended she obtain sample provided to her primary care provider otherwise at this time I feel patient stable for discharge. Patient is agreeable to secure upon discharge at this time patient provided ODT prescription of Zofran. - Lab Data Result diagrams: 10/23/19 14:45 10/23/19 14:45 Lab Results 10/23/19 10/23/19 10/23/19 Range/Units 14:45 14:45 Unknown WBC 13.7 H (3.8-10.6) k/uL RBC 5.55 H (3.80-5.40) m/uL Hgb 14.2 (11.4-16.0) gm/dL Hct 43.2 (34.0-46.0) % MCV 77.8 L (80.0-100.0) fL MCH 25.6 (25.0-35.0) pg MCHC 32.9 (31.0-37.0) g/dL RDW 16.9 H (11.5-15.5) % Plt Count 423 (150-450) k/uL Neutrophils % 80 % Lymphocytes % 14 % Monocytes % 3 % Eosinophils % 2 % Basophils % 0 % Neutrophils # 10.9 H (1.3-7.7) k/uL Lymphocytes # 1.9 (1.0-4.8) k/uL Monocytes # 0.5 (0-1.0) k/uL Eosinophils # 0.3 (0-0.7) k/uL Basophils # 0.0 (0-0.2) k/uL Anisocytosis Slight Microcytosis Slight Sodium 142 (137-145) mmol/L Potassium 4.4 (3.5-5.1) mmol/L Chloride 106 (98-107) mmol/L Carbon Dioxide 28 (22-30) mmol/L Anion Gap 8 mmol/L BUN 6 L (7-17) mg/dL Creatinine 0.73 (0.52-1.04) mg/dL Est GFR (CKD-EPI)AfAm >90 (>60 ml/min/1.73 sqM) Est GFR (CKD-EPI)NonAf >90 (>60 ml/min/1.73 sqM) Glucose 130 H (74-99) mg/dL Calcium 9.1 (8.4-10.2) mg/dL Total Bilirubin 0.4 (0.2-1.3) mg/dL AST 28 (14-36) U/L ALT 32 (9-52) U/L Alkaline Phosphatase 64 (38-126) U/L Total Protein 8.2 (6.3-8.2) g/dL Albumin 4.2 (3.5-5.0) g/dL Urine HCG, Qual Not Detected (Not Detectd) Disposition Clinical Impression: Diarrhea Disposition: HOME SELF-CARE Condition: Good Instructions (If sedation given, give patient instructions): Acute Diarrhea (ED) Additional Instructions: Please take medications as discussed. Increase fluid intake, water. Provide stool sample to your primary care. Follow-up with PCP on Friday. Return for abdominal pain, worsening diarrhea, dehydration or any other concerns. Prescriptions: Ondansetron Odt [Zofran Odt] 4 mg PO Q8HR PRN 3 Days #9 tab PRN Reason: Nausea Is patient prescribed a controlled substance at d/c from ED?: No Referrals: Dave Boykin [Primary Care Provider] - 1-2 days Time of Disposition: 15:17
[2019-10-23] MEDS ORDERED: ONDANSETRON 4 MG/2 ML VIAL IVP STA (14:37)
[2019-10-23] MEDS ORDERED: SODIUM CHLORIDE 0.9% 1,000 ML IV STA (14:37)
[2019-10-23 15:01] LABS: Anisocytosis Slight; Basophils % (A) 0 %; Eosinophils # (A) 0.3 k/uL (0-0.7); Eosinophils % (A) 2 %; HCT 43.2 % (34.0-46.0); HGB 14.2 gm/dL (11.4-16.0); Lymphocytes # (A) 1.9 k/uL (1.0-4.8); Lymphocytes % (A) 14 %; MCH 25.6 pg (25.0-35.0); MCHC 32.9 g/dL (31.0-37.0); MCV 77.8 fL (80.0-100.0); Mean Platelet Volume 6.9; Microcytosis Slight; Monocytes # (A) 0.5 k/uL (0-1.0); Monocytes % (A) 3 %; Neutrophils # (A) 10.9 k/uL (1.3-7.7); Neutrophils % (A) 80 %; Platelet Count 423 k/uL (150-450); RBC 5.55 m/uL (3.80-5.40); RDW 16.9 % (11.5-15.5); WBC 13.7 k/uL (3.8-10.6)
[2019-10-23 15:12] LABS: ALT 32 U/L (9-52); AST 28 U/L (14-36); African American GFR (CKD) >90 (>60 ml/min/1.73 sqM); Albumin 4.2 g/dL (3.5-5.0); Alkaline Phosphatase 64 U/L (38-126); Anion Gap 8 mmol/L; Blood Urea Nitrogen 6 mg/dL (7-17); Calcium 9.1 mg/dL (8.4-10.2); Carbon Dioxide 28 mmol/L (22-30); Chloride 106 mmol/L (98-107); Glucose 130 mg/dL (74-99); Non-African American GFR(CKD) >90 (>60 ml/min/1.73 sqM); Potassium 4.4 mmol/L (3.5-5.1); Sodium 142 mmol/L (137-145); Total Bilirubin 0.4 mg/dL (0.2-1.3); Total Protein 8.2 g/dL (6.3-8.2)
[2019-10-23 15:34] VITALS: BP 132/87; PULSE 83; TEMP 98.5
== END 2019-10-23 15:34 | disposition home or self-care (01) ==
LOC: EC 12:26
DX: R19.7 Diarrhea, unspecified (principal); R11.2 Nausea with vomiting, unspecified; D72.829 Elevated white blood cell count, unspecified; J45.909 Unspecified asthma, uncomplicated; E11.9 Type 2 diabetes mellitus without complications; K21.9 Gastro-esophageal reflux disease without esophagitis; F41.9 Anxiety disorder, unspecified; D64.9 Anemia, unspecified; F32.9 Major depressive disorder, single episode, unspecified; E07.9 Disorder of thyroid, unspecified; Z79.890 Hormone replacement therapy; Z79.51 Long term (current) use of inhaled steroids; Z79.899 Other long term (current) drug therapy; Z87.891 Personal history of nicotine dependence; Z88.6 Allergy status to analgesic agent; Z88.2 Allergy status to sulfonamides; Z88.1 Allergy status to other antibiotic agents; Z88.8 Allergy status to other drugs, medicaments and biological substances; Z91.011 Allergy to milk products; Z87.19 Personal history of other diseases of the digestive system
CPT/HCPCS: 36415; 80053; 85025; 81025; 99284; 96374; 96361; J2405

== ENCOUNTER 2019-11-10 20:35 | Emergency (ER) | payer OTHER ==
[2019-11-10] MEDS ORDERED: SODIUM CHLORIDE 0.9% 500 ML 500 ML IV STA (21:55)
[2019-11-10] MEDS ORDERED: SODIUM CHLORIDE 0.9% 1,000 ML IV STA (21:55)
[2019-11-10] MEDS ORDERED: ONDANSETRON 4 MG/2 ML VIAL IVP STA (21:55)
[2019-11-10 22:12] LABS: Appearance,Urine Cloudy (Clear); Bacteria,Urine Rare /hpf; Bilirubin,Urine Negative (Negative); Blood,Urine Small (Negative); Color,Urine Yellow; Glucose,Urine (UA) Negative (Negative); Ketones,Urine Negative (Negative); Leukocyte Esterase,Urine Negative (Negative); Mucus,Urine Rare /hpf; Nitrite,Urine Negative (Negative); PH, Urine 6.5 (5.0-8.0); Protein,Urine 1+ (Negative); RBC,Urine 7 /hpf (0-5); Specific Gravity,Urine 1.017 (1.001-1.035); Squamous Epithelial Cell,Urine 8 /hpf (0-4); Urobilinogen,Urine <2.0 mg/dL (<2.0); WBC,Urine 2 /hpf (0-5)
[2019-11-10 22:15] LABS: Anisocytosis Slight; Basophils # (A) 0.1 k/uL (0-0.2); Basophils % (A) 1 %; Eosinophils # (A) 0.1 k/uL (0-0.7); Eosinophils % (A) 1 %; HCT 39.9 % (34.0-46.0); HGB 13.5 gm/dL (11.4-16.0); Lymphocytes # (A) 0.8 k/uL (1.0-4.8); Lymphocytes % (A) 7 %; MCH 26.1 pg (25.0-35.0); MCHC 33.8 g/dL (31.0-37.0); MCV 77.2 fL (80.0-100.0); Mean Platelet Volume 7.6; Microcytosis Slight; Monocytes # (A) 0.4 k/uL (0-1.0); Monocytes % (A) 3 %; Neutrophils # (A) 9.8 k/uL (1.3-7.7); Neutrophils % (A) 87 %; Platelet Count 351 k/uL (150-450); RBC 5.17 m/uL (3.80-5.40); RDW 16.5 % (11.5-15.5); WBC 11.3 k/uL (3.8-10.6)
[2019-11-10] MEDS ORDERED: ACETAMINOPHEN TAB 500 MG TAB PO STA (22:15)
[2019-11-10 22:19] LABS: ALT 23 U/L (4-34); African American GFR (CKD) >90 (>60 ml/min/1.73 sqM); Amylase 42 U/L (30-110); Anion Gap 9 mmol/L; Blood Urea Nitrogen 9 mg/dL (7-17); Calcium 8.6 mg/dL (8.4-10.2); Carbon Dioxide 22 mmol/L (22-30); Chloride 103 mmol/L (98-107); Glucose 142 mg/dL (74-99); Non-African American GFR(CKD) >90 (>60 ml/min/1.73 sqM); Sodium 134 mmol/L (137-145); Total Bilirubin 0.9 mg/dL (0.2-1.3); Total Protein 7.6 g/dL (6.3-8.2)
[2019-11-10 22:22] LABS: AST 33 U/L (14-36); Alkaline Phosphatase 54 U/L (38-126); Potassium 3.9 mmol/L (3.5-5.1)
[2019-11-10 22:45] VITALS: RESP 18
--- NOTE | 2019-11-10 23:35 | ED ---
Nausea/Vomiting/Diarrhea HPI - General Chief complaint: Nausea/Vomiting/Diarrhea Stated complaint: Vomiting Time Seen by Provider: 11/10/19 21:02 Source: patient, family Mode of arrival: ambulatory Limitations: no limitations - History of Present Illness Initial comments: 24-year-old female patient presents to the emergency department today for evaluation of vomiting, diarrhea, and fever. Patient states she's been sick since yesterday. Patient reports multiple episodes of vomiting, unable to keep down any food or fluids. States she is having multiple episodes of diarrhea. Denies any hematochezia, melena, or hematemesis. States she's had a temperature and chills. Denies any abdominal pain. Denies any chance of . Denies any sick contacts or recent travel. Denies any new medications. Denies any recent antibiotic use. Patient denies any recent rash, chest pain, cough, shortness of breath, back pain, numbness, tingling, dizziness, weakness, hematuria, dysuria, urinary urgency, urinary frequency, headache, visual changes, or any other complaints. - Related Data Home Medications Medication Instructions Recorded Confirmed Levothyroxine Sodium [Synthroid] 200 mcg PO DAILY 08/12/17 08/27/19 Omeprazole 40 mg PO DAILY PRN 08/12/17 08/27/19 Montelukast [Singulair] 10 mg PO DAILY 11/17/18 08/27/19 Albuterol Inhaler [Ventolin Hfa 1 - 2 puff INHALATION RT-Q6H PRN 01/12/19 08/27/19 Inhaler] Beclomethasone Dip 80 Mcg/Puff 2 puff INHALATION RT-DAILY 01/12/19 08/27/19 [Qvar 80 mcg] FLUoxetine HCL [PROzac] 20 mg PO DAILY 01/12/19 08/27/19 Levothyroxine Sodium [Synthroid] 25 mcg PO DAILY 01/12/19 08/27/19 Ferrous Sulfate [Feosol] 325 mg PO DAILY 06/25/19 08/27/19 Albuterol Nebulized [Ventolin 2.5 mg INHALATION RT-Q4H PRN 07/14/19 08/27/19 Nebulized] Loratadine [Claritin] 10 mg PO DAILY 07/14/19 08/27/19 Previous Rx's Medication Instructions Recorded Ondansetron Odt [Zofran Odt] 4 mg PO Q8HR PRN #10 tab 08/27/19 Ondansetron Odt [Zofran Odt] 4 mg PO Q8HR PRN 3 Days #9 tab 10/23/19 Allergies Allergy/AdvReac Type Severity Reaction Status Date / Time benzonatate Allergy Rash/Hives Verified 11/10/19 20:56 [From Tessalon Perles] Milk Containing Products Allergy Unknown Verified 11/10/19 20:56 [Dairy] sulfamethoxazole Allergy Rash/Hives Verified 11/10/19 20:56 [From Bactrim] trimethoprim [From Bactrim] Allergy Rash/Hives Verified 11/10/19 20:56 ibuprofen [From Motrin] AdvReac KIDNEY PAIN Verified 11/10/19 20:56 metoclopramide [From Reglan] AdvReac ANXIETY Verified 11/10/19 20:56 Review of Systems ROS Statement: Those systems with pertinent positive or pertinent negative responses have been documented in the HPI. ROS Other: All systems not noted in ROS Statement are negative. Past Medical History Past Medical History: Asthma, Diabetes Mellitus, GERD/Reflux, Thyroid Disorder Additional Past Medical History / Comment(s): anemia History of Any Multi-Drug Resistant Organisms: None Reported Past Surgical History: Adenoidectomy Additional Past Surgical History / Comment(s): Eye surgery Past Psychological History: Anxiety, Depression Smoking Status: Former smoker Past Alcohol Use History: Occasional Past Drug Use History: Marijuana General Exam Limitations: no limitations General appearance: alert, in no apparent distress, other (This is a well- developed, well-nourished adult female patient in no acute distress. Vital signs upon presentation are temperature 101.0F, pulse 1:15, respirations 24, blood pressure 143/77, pulse ox 97% on room air.) Eye exam: Present: normal appearance, PERRL, EOMI. Absent: scleral icterus, conjunctival injection, periorbital swelling ENT exam: Present: normal exam, normal oropharynx, mucous membranes moist Respiratory exam: Present: normal lung sounds bilaterally. Absent: respiratory distress, wheezes, rales, rhonchi, stridor Cardiovascular Exam: Present: regular rate, normal rhythm, normal heart sounds. Absent: systolic murmur, diastolic murmur, rubs, gallop, clicks GI/Abdominal exam: Present: soft, normal bowel sounds. Absent: distended, tenderness, guarding, rebound, rigid Neurological exam: Present: alert, oriented X3, CN II-XII intact Psychiatric exam: Present: normal affect, normal mood Skin exam: Present: warm, dry, intact, normal color. Absent: rash Course Vital Signs 11/10/19 11/10/19 20:53 22:45 Temperature 101 F H 99.0 F Pulse Rate 115 H 98 Respiratory 24 18 Rate Blood Pressure 143/77 O2 Sat by Pulse 97 99 Oximetry Medical Decision Making - Medical Decision Making 24-year-old female patient presents to the emergency department today for evaluation of vomiting and diarrhea. Physical examination reveals soft nontender abdomen. She does have a fever 101F. Labs reviewed and did reveal mildly elevated white blood cell count at 11.3, most likely reactive from vomiting. She was given IV fluids and Zofran. She does have improvement of symptoms. Symptoms are consistent with gastroenteritis. We'll treat with this plan. She is instructed to start with a clear liquid diet and advance as tolerated. She states instructed to follow-up with her primary care physician for recheck in 1-2 days. Return parameters were discussed in detail. She verbalizes understanding and agrees with this plan. - Lab Data Result diagrams: 11/10/19 21:28 11/10/19 21:28 Lab Results 11/10/19 11/10/19 11/10/19 Range/Units 21:28 21:28 21:28 WBC 11.3 H (3.8-10.6) k/uL RBC 5.17 (3.80-5.40) m/uL Hgb 13.5 (11.4-16.0) gm/dL Hct 39.9 (34.0-46.0) % MCV 77.2 L (80.0-100.0) fL MCH 26.1 (25.0-35.0) pg MCHC 33.8 (31.0-37.0) g/dL RDW 16.5 H (11.5-15.5) % Plt Count 351 (150-450) k/uL Neutrophils % 87 % Lymphocytes % 7 % Monocytes % 3 % Eosinophils % 1 % Basophils % 1 % Neutrophils # 9.8 H (1.3-7.7) k/uL Lymphocytes # 0.8 L (1.0-4.8) k/uL Monocytes # 0.4 (0-1.0) k/uL Eosinophils # 0.1 (0-0.7) k/uL Basophils # 0.1 (0-0.2) k/uL Anisocytosis Slight Microcytosis Slight Sodium 134 L (137-145) mmol/L Potassium 3.9 (3.5-5.1) mmol/L Chloride 103 (98-107) mmol/L Carbon Dioxide 22 (22-30) mmol/L Anion Gap 9 mmol/L BUN 9 (7-17) mg/dL Creatinine 0.60 (0.52-1.04) mg/dL Est GFR (CKD-EPI)AfAm >90 (>60 ml/min/1.73 sqM) Est GFR (CKD-EPI)NonAf >90 (>60 ml/min/1.73 sqM) Glucose 142 H (74-99) mg/dL Calcium 8.6 (8.4-10.2) mg/dL Total Bilirubin 0.9 (0.2-1.3) mg/dL AST 33 (14-36) U/L ALT 23 (4-34) U/L Alkaline Phosphatase 54 (38-126) U/L Total Protein 7.6 (6.3-8.2) g/dL Albumin 4.0 (3.5-5.0) g/dL Amylase 42 (30-110) U/L Lipase 96 (23-300) U/L Urine Color Urine Appearance (Clear) Urine pH (5.0-8.0) Ur Specific [place] (1.001-1.035) Urine Protein (Negative) Urine Glucose (UA) (Negative) Urine Ketones (Negative) Urine Blood (Negative) Urine Nitrite (Negative) Urine Bilirubin (Negative) Urine Urobilinogen (<2.0) mg/dL Ur Leukocyte Esterase (Negative) Urine RBC (0-5) /hpf Urine WBC (0-5) /hpf Ur Squamous Epith Cells (0-4) /hpf Urine Bacteria (None) /hpf Urine Mucus (None) /hpf Urine HCG, Qual Not Detected (Not Detectd) 11/10/19 Range/Units 21:28 WBC (3.8-10.6) k/uL RBC (3.80-5.40) m/uL Hgb (11.4-16.0) gm/dL Hct (34.0-46.0) % MCV (80.0-100.0) fL MCH (25.0-35.0) pg MCHC (31.0-37.0) g/dL RDW (11.5-15.5) % Plt Count (150-450) k/uL Neutrophils % % Lymphocytes % % Monocytes % % Eosinophils % % Basophils % % Neutrophils # (1.3-7.7) k/uL Lymphocytes # (1.0-4.8) k/uL Monocytes # (0-1.0) k/uL Eosinophils # (0-0.7) k/uL Basophils # (0-0.2) k/uL Anisocytosis Microcytosis Sodium (137-145) mmol/L Potassium (3.5-5.1) mmol/L Chloride (98-107) mmol/L Carbon Dioxide (22-30) mmol/L Anion Gap mmol/L BUN (7-17) mg/dL Creatinine (0.52-1.04) mg/dL Est GFR (CKD-EPI)AfAm (>60 ml/min/1.73 sqM) Est GFR (CKD-EPI)NonAf (>60 ml/min/1.73 sqM) Glucose (74-99) mg/dL Calcium (8.4-10.2) mg/dL Total Bilirubin (0.2-1.3) mg/dL AST (14-36) U/L ALT (4-34) U/L Alkaline Phosphatase (38-126) U/L Total Protein (6.3-8.2) g/dL Albumin (3.5-5.0) g/dL Amylase (30-110) U/L Lipase (23-300) U/L Urine Color Yellow Urine Appearance Cloudy H (Clear) Urine pH 6.5 (5.0-8.0) Ur Specific [place] 1.017 (1.001-1.035) Urine Protein 1+ H (Negative) Urine Glucose (UA) Negative (Negative) Urine Ketones Negative (Negative) Urine Blood Small H (Negative) Urine Nitrite Negative (Negative) Urine Bilirubin Negative (Negative) Urine Urobilinogen <2.0 (<2.0) mg/dL Ur Leukocyte Esterase Negative (Negative) Urine RBC 7 H (0-5) /hpf Urine WBC 2 (0-5) /hpf Ur Squamous Epith Cells 8 H (0-4) /hpf Urine Bacteria Rare H (None) /hpf Urine Mucus Rare H (None) /hpf Urine HCG, Qual (Not Detectd) Disposition Clinical Impression: Vomiting and diarrhea Disposition: HOME SELF-CARE Condition: Good Instructions (If sedation given, give patient instructions): Acute Nausea and Vomiting (ED), Acute Diarrhea (ED), Gastroenteritis (ED) Additional Instructions: Increase fluids. Cervical liquid diet and advance as tolerated. Take medications as directed. Follow up with your primary care physician for recheck in 1-2 days. Is patient prescribed a controlled substance at d/c from ED?: No Referrals: Dave Boykin [Primary Care Provider] - 1-2 days Time of Disposition: 23:35
[2019-11-10] MEDS ORDERED: ONDANSETRON 4 MG ODT STARTER PACK 2 TAB BTL PO STA (23:41)
[2019-11-10] MEDS ORDERED: DIPHENOX-ATROP STARTER PACK 8 TAB BTL PO STA (23:41)
[2019-11-10 23:57] VITALS: BP 142/86; PULSE 93; TEMP 98
== END 2019-11-10 23:57 | disposition home or self-care (01) ==
LOC: EC 20:35
DX: R19.7 Diarrhea, unspecified (principal); R11.10 Vomiting, unspecified; D72.829 Elevated white blood cell count, unspecified; R50.9 Fever, unspecified; J45.909 Unspecified asthma, uncomplicated; K21.9 Gastro-esophageal reflux disease without esophagitis; E07.9 Disorder of thyroid, unspecified; D64.9 Anemia, unspecified; F32.9 Major depressive disorder, single episode, unspecified; F41.9 Anxiety disorder, unspecified; Z87.891 Personal history of nicotine dependence; Z88.2 Allergy status to sulfonamides; Z88.6 Allergy status to analgesic agent; Z88.8 Allergy status to other drugs, medicaments and biological substances; Z91.011 Allergy to milk products; Z79.51 Long term (current) use of inhaled steroids; Z79.890 Hormone replacement therapy; Z79.899 Other long term (current) drug therapy
CPT/HCPCS: 36415; 80053; 82150; 83690; 85025; 81001; 81025; 99284; 96374; 96361 ×2; J2405; S0119

== ENCOUNTER 2019-11-14 12:09 | Emergency (ER) | payer OTHER ==
[2019-11-14] MEDS ORDERED: SODIUM CHLORIDE 0.9% 1,000 ML IV STA (13:22)
[2019-11-14] MEDS ORDERED: ONDANSETRON 4 MG/2 ML VIAL IVP STA (13:22)
[2019-11-14] MEDS ORDERED: LOPERAMIDE 2 MG CAP PO STA ×2 (13:22→15:57)
[2019-11-14 13:24] VITALS: RESP 20; TEMP 97
--- NOTE | 2019-11-14 13:40 | ED ---
Nausea/Vomiting/Diarrhea HPI - General Chief complaint: Nausea/Vomiting/Diarrhea Stated complaint: recheck - flu, diarrhea Time Seen by Provider: 11/14/19 12:53 Source: patient Mode of arrival: ambulatory Limitations: no limitations - History of Present Illness Initial comments: Patient is a 24-year-old female presenting to emergency Department with com plaints of diarrhea 4 days. Patient states she was seen in the ER 4 days ago for nausea, vomiting, diarrhea with sudden onset. Patient states she was given Zofran and reports the vomiting has stopped however she still having some nausea as well as continuous diarrhea. Patient states she is having some mild abdominal cramping along with this. Patient states she has tried to change her diet to more fibrous however is not working. Patient admits to having a fever of 100 yesterday. Patient states she take Tylenol and it did subside. Patient does not have a fever today. Patient denies severe abdominal pain, chest pain, shortness of breath. Patient has no other complaints at this time. Upon arrival to the ER, her vital signs are stable. - Related Data Home Medications Medication Instructions Recorded Confirmed Levothyroxine Sodium [Synthroid] 200 mcg PO DAILY 08/12/17 08/27/19 Omeprazole 40 mg PO DAILY PRN 08/12/17 08/27/19 Montelukast [Singulair] 10 mg PO DAILY 11/17/18 08/27/19 Albuterol Inhaler [Ventolin Hfa 1 - 2 puff INHALATION RT-Q6H PRN 01/12/19 08/27/19 Inhaler] Beclomethasone Dip 80 Mcg/Puff 2 puff INHALATION RT-DAILY 01/12/19 08/27/19 [Qvar 80 mcg] FLUoxetine HCL [PROzac] 20 mg PO DAILY 01/12/19 08/27/19 Levothyroxine Sodium [Synthroid] 25 mcg PO DAILY 01/12/19 08/27/19 Ferrous Sulfate [Feosol] 325 mg PO DAILY 06/25/19 08/27/19 Albuterol Nebulized [Ventolin 2.5 mg INHALATION RT-Q4H PRN 07/14/19 08/27/19 Nebulized] Loratadine [Claritin] 10 mg PO DAILY 07/14/19 08/27/19 Previous Rx's Medication Instructions Recorded Ondansetron Odt [Zofran Odt] 4 mg PO Q8HR PRN #10 tab 08/27/19 Ondansetron Odt [Zofran Odt] 4 mg PO Q8HR PRN 3 Days #9 tab 10/23/19 Ondansetron [Zofran ODT] 4 mg PO Q8HR PRN #10 tab 11/14/19 Allergies Allergy/AdvReac Type Severity Reaction Status Date / Time benzonatate Allergy Rash/Hives Verified 11/14/19 12:20 [From Tessalon Perles] Milk Containing Products Allergy Unknown Verified 11/14/19 12:20 [Dairy] sulfamethoxazole Allergy Rash/Hives Verified 11/14/19 12:20 [From Bactrim] trimethoprim [From Bactrim] Allergy Rash/Hives Verified 11/14/19 12:20 ibuprofen [From Motrin] AdvReac KIDNEY PAIN Verified 11/14/19 12:20 metoclopramide [From Reglan] AdvReac ANXIETY Verified 11/14/19 12:20 Review of Systems ROS Statement: Those systems with pertinent positive or pertinent negative responses have been documented in the HPI. ROS Other: All systems not noted in ROS Statement are negative. Past Medical History Past Medical History: Asthma, Diabetes Mellitus, GERD/Reflux, Thyroid Disorder Additional Past Medical History / Comment(s): anemia History of Any Multi-Drug Resistant Organisms: None Reported Past Surgical History: Adenoidectomy Additional Past Surgical History / Comment(s): Eye surgery Past Psychological History: Anxiety, Depression Smoking Status: Former smoker Past Alcohol Use History: Occasional Past Drug Use History: Marijuana General Exam - General Exam Comments Initial Comments: GENERAL: Well-appearing, well-nourished and in no acute distress. HEAD: Atraumatic, normocephalic. EYES: Pupils equal round and reactive to light, extraocular movements intact, sclera anicteric, conjunctiva are normal. ENT: TMs normal, nares patent, oropharynx clear without exudates. Moist mucous membranes. NECK: Normal range of motion, supple without lymphadenopathy or JVD. LUNGS: Breath sounds clear to auscultation bilaterally and equal. No wheezes rales or rhonchi. HEART: Regular rate and rhythm without murmurs, rubs or gallops. ABDOMEN: Mild epigastric and umbilical tenderness. No severe abdominal pain. Soft, normoactive bowel sounds. No guarding, no rebound. No masses appreciated. : Deferred EXTREMITIES: Normal range of motion, no pitting or edema. No clubbing or cyanosis. NEUROLOGICAL: Normal speech, normal gait. PSYCH: Normal mood, normal affect. SKIN: Warm, Dry, normal turgor, no rashes or lesions noted. Limitations: no limitations Course Vital Signs 11/14/19 11/14/19 11/14/19 12:16 13:19 13:22 Temperature 97.8 F 97 F L Pulse Rate 77 69 Respiratory 16 20 Rate Blood Pressure 119/79 130/80 O2 Sat by Pulse 97 100 100 Oximetry 11/14/19 11/14/19 11/14/19 13:30 14:00 15:00 Temperature Pulse Rate 72 69 Respiratory 20 20 Rate Blood Pressure 130/80 108/97 130/80 O2 Sat by Pulse 95 100 100 Oximetry 11/14/19 11/14/19 16:00 16:33 Temperature Pulse Rate 75 Respiratory 20 20 Rate Blood Pressure 107/87 O2 Sat by Pulse 100 Oximetry Medical Decision Making - Medical Decision Making Patient is a 24-year-old female presenting with diarrhea and nausea 4 days. Patient was in the ER for similar complaint 4 days ago. No vomiting, no severe abdominal pain. Vital signs are stable. Lab work shows no acute abnormalities. Urine shows no signs of infection. C. diff is negative. Other stool cultures are pending at this time. Patient was given fluids, Zofran, Imodium and reports improvement in her symptoms. I discussed these findings with the patient and recommended switching to Imodium for her diarrhea. Patient is in agreement with this plan of care. Patient is stable for discharge at this time. Her vitals remained stable. Return parameters were discussed with the patient she verbalized understanding. - Lab Data Result diagrams: 11/14/19 13:15 11/14/19 13:15 Lab Results 11/14/19 11/14/19 11/14/19 Range/Units 13:15 13:15 13:47 WBC 8.9 (3.8-10.6) k/uL RBC 5.27 (3.80-5.40) m/uL Hgb 14.0 (11.4-16.0) gm/dL Hct 40.6 (34.0-46.0) % MCV 77.0 L (80.0-100.0) fL MCH 26.6 (25.0-35.0) pg MCHC 34.6 (31.0-37.0) g/dL RDW 16.6 H (11.5-15.5) % Plt Count 382 (150-450) k/uL Neutrophils % 69 % Lymphocytes % 22 % Monocytes % 5 % Eosinophils % 2 % Basophils % 0 % Neutrophils # 6.1 (1.3-7.7) k/uL Lymphocytes # 2.0 (1.0-4.8) k/uL Monocytes # 0.4 (0-1.0) k/uL Eosinophils # 0.2 (0-0.7) k/uL Basophils # 0.0 (0-0.2) k/uL Anisocytosis Slight Microcytosis Slight Sodium 139 (137-145) mmol/L Potassium 3.8 (3.5-5.1) mmol/L Chloride 105 (98-107) mmol/L Carbon Dioxide 21 L (22-30) mmol/L Anion Gap 13 mmol/L BUN 11 (7-17) mg/dL Creatinine 0.74 (0.52-1.04) mg/dL Est GFR (CKD-EPI)AfAm >90 (>60 ml/min/1.73 sqM) Est GFR (CKD-EPI)NonAf >90 (>60 ml/min/1.73 sqM) Glucose 105 H (74-99) mg/dL Calcium 9.1 (8.4-10.2) mg/dL Total Bilirubin 0.7 (0.2-1.3) mg/dL AST 40 H (14-36) U/L ALT 33 (4-34) U/L Alkaline Phosphatase 56 (38-126) U/L Total Protein 7.9 (6.3-8.2) g/dL Albumin 4.1 (3.5-5.0) g/dL Amylase 44 (30-110) U/L Lipase 209 (23-300) U/L Urine Color Urine Appearance (Clear) Urine pH (5.0-8.0) Ur Specific [place] (1.001-1.035) Urine Protein (Negative) Urine Glucose (UA) (Negative) Urine Ketones (Negative) Urine Blood (Negative) Urine Nitrite (Negative) Urine Bilirubin (Negative) Urine Urobilinogen (<2.0) mg/dL Ur Leukocyte Esterase (Negative) Urine RBC (0-5) /hpf Urine WBC (0-5) /hpf Ur Squamous Epith Cells (0-4) /hpf C. difficile (EIA) Intrp Negative (Negative) 11/14/19 Range/Units 15:15 WBC (3.8-10.6) k/uL RBC (3.80-5.40) m/uL Hgb (11.4-16.0) gm/dL Hct (34.0-46.0) % MCV (80.0-100.0) fL MCH (25.0-35.0) pg MCHC (31.0-37.0) g/dL RDW (11.5-15.5) % Plt Count (150-450) k/uL Neutrophils % % Lymphocytes % % Monocytes % % Eosinophils % % Basophils % % Neutrophils # (1.3-7.7) k/uL Lymphocytes # (1.0-4.8) k/uL Monocytes # (0-1.0) k/uL Eosinophils # (0-0.7) k/uL Basophils # (0-0.2) k/uL Anisocytosis Microcytosis Sodium (137-145) mmol/L Potassium (3.5-5.1) mmol/L Chloride (98-107) mmol/L Carbon Dioxide (22-30) mmol/L Anion Gap mmol/L BUN (7-17) mg/dL Creatinine (0.52-1.04) mg/dL Est GFR (CKD-EPI)AfAm (>60 ml/min/1.73 sqM) Est GFR (CKD-EPI)NonAf (>60 ml/min/1.73 sqM) Glucose (74-99) mg/dL Calcium (8.4-10.2) mg/dL Total Bilirubin (0.2-1.3) mg/dL AST (14-36) U/L ALT (4-34) U/L Alkaline Phosphatase (38-126) U/L Total Protein (6.3-8.2) g/dL Albumin (3.5-5.0) g/dL Amylase (30-110) U/L Lipase (23-300) U/L Urine Color Red Urine Appearance Clear (Clear) Urine pH 6.0 (5.0-8.0) Ur Specific [place] 1.019 (1.001-1.035) Urine Protein 1+ H (Negative) Urine Glucose (UA) Negative (Negative) Urine Ketones Trace H (Negative) Urine Blood Large H (Negative) Urine Nitrite Negative (Negative) Urine Bilirubin Negative (Negative) Urine Urobilinogen <2.0 (<2.0) mg/dL Ur Leukocyte Esterase Small H (Negative) Urine RBC >182 H (0-5) /hpf Urine WBC 1 (0-5) /hpf Ur Squamous Epith Cells 4 (0-4) /hpf C. difficile (EIA) Intrp (Negative) Disposition Clinical Impression: Diarrhea, Nausea Disposition: HOME SELF-CARE Condition: Stable Instructions (If sedation given, give patient instructions): Acute Diarrhea (ED) Additional Instructions: Please return to the Emergency Department if symptoms worsen or any other concerns. Switched to Imodium for diarrhea. OTC at Pharm. Continue to increase fluid intake and bland foods. Follow-up with PCP if symptoms persist. Prescriptions: Ondansetron [Zofran ODT] 4 mg PO Q8HR PRN #10 tab PRN Reason: Nausea Is patient prescribed a controlled substance at d/c from ED?: No Referrals: Dave Boykin [Primary Care Provider] - 1-2 days
[2019-11-14 13:51] LABS: Anisocytosis Slight; Basophils % (A) 0 %; Eosinophils # (A) 0.2 k/uL (0-0.7); Eosinophils % (A) 2 %; HCT 40.6 % (34.0-46.0); Lymphocytes % (A) 22 %; MCH 26.6 pg (25.0-35.0); MCHC 34.6 g/dL (31.0-37.0); Mean Platelet Volume 7.8; Microcytosis Slight; Monocytes # (A) 0.4 k/uL (0-1.0); Monocytes % (A) 5 %; Neutrophils # (A) 6.1 k/uL (1.3-7.7); Neutrophils % (A) 69 %; Platelet Count 382 k/uL (150-450); RBC 5.27 m/uL (3.80-5.40); RDW 16.6 % (11.5-15.5); WBC 8.9 k/uL (3.8-10.6)
[2019-11-14 14:05] LABS: ALT 33 U/L (4-34); AST 40 U/L (14-36); African American GFR (CKD) >90 (>60 ml/min/1.73 sqM); Albumin 4.1 g/dL (3.5-5.0); Alkaline Phosphatase 56 U/L (38-126); Amylase 44 U/L (30-110); Anion Gap 13 mmol/L; Blood Urea Nitrogen 11 mg/dL (7-17); Calcium 9.1 mg/dL (8.4-10.2); Carbon Dioxide 21 mmol/L (22-30); Chloride 105 mmol/L (98-107); Glucose 105 mg/dL (74-99); Non-African American GFR(CKD) >90 (>60 ml/min/1.73 sqM); Potassium 3.8 mmol/L (3.5-5.1); Sodium 139 mmol/L (137-145); Total Bilirubin 0.7 mg/dL (0.2-1.3); Total Protein 7.9 g/dL (6.3-8.2)
[2019-11-14 15:57] LABS: Appearance,Urine Clear (Clear); Bilirubin,Urine Negative (Negative); Blood,Urine Large (Negative); Color,Urine Red; Glucose,Urine (UA) Negative (Negative); Ketones,Urine Trace (Negative); Leukocyte Esterase,Urine Small (Negative); Nitrite,Urine Negative (Negative); Protein,Urine 1+ (Negative); RBC,Urine >182 /hpf (0-5); Specific Gravity,Urine 1.019 (1.001-1.035); Squamous Epithelial Cell,Urine 4 /hpf (0-4); Urobilinogen,Urine <2.0 mg/dL (<2.0); WBC,Urine 1 /hpf (0-5)
[2019-11-14 16:24] VITALS: BP 107/87; PULSE 75
== END 2019-11-14 16:34 | disposition home or self-care (01) ==
LOC: EC 12:09
DX: R19.7 Diarrhea, unspecified (principal); R11.0 Nausea; R10.9 Unspecified abdominal pain; J45.909 Unspecified asthma, uncomplicated; K21.9 Gastro-esophageal reflux disease without esophagitis; E07.9 Disorder of thyroid, unspecified; D64.9 Anemia, unspecified; F32.9 Major depressive disorder, single episode, unspecified; F41.9 Anxiety disorder, unspecified; Z87.891 Personal history of nicotine dependence; Z88.2 Allergy status to sulfonamides; Z88.6 Allergy status to analgesic agent; Z88.8 Allergy status to other drugs, medicaments and biological substances; Z91.011 Allergy to milk products; Z79.51 Long term (current) use of inhaled steroids; Z79.890 Hormone replacement therapy; Z79.899 Other long term (current) drug therapy
CPT/HCPCS: 36415; 80053; 82150; 83690; 85025; 81001; 87324; 87045; 83630; 87046; 99284; 96374; 96361; J2405

== ENCOUNTER 2021-01-22 12:42 | Emergency (ER) | payer OTHER ==
[2021-01-22 13:01] VITALS: TEMP 98
[2021-01-22] MEDS ORDERED: SODIUM CHLORIDE 0.9% 1,000 ML IV ONE (14:27)
[2021-01-22] MEDS ORDERED: ONDANSETRON 4 MG/2 ML VIAL IVP STA (14:27)
[2021-01-22] MEDS ORDERED: SODIUM CHLORIDE 0.9% 1,000 ML IV SCH (14:30)
--- NOTE | 2021-01-22 14:48 | ED ---
Nausea/Vomiting/Diarrhea HPI - General Chief complaint: Nausea/Vomiting/Diarrhea Stated complaint: NVD Time Seen by Provider: 01/22/21 14:16 Source: patient Mode of arrival: ambulatory Limitations: no limitations - History of Present Illness Initial comments: 25-year-old male presenting today for chief complaint of diarrhea vomiting. Patient states that she's been struggling with episodes of diarrhea and vomiting they're currently evaluating her for IBS. Patient denies any bloody stools. Patient states she had some upper abdominal discomfort for the past 3-4 days she's had multiple episodes of diarrhea and this morning began vomiting. Patient denies fever she denies chest pain shortness of breath denies lower abdominal pain pelvic pain she denies. C or vaginal bleeding. Patient denies dysuria urgency frequency or hematuria she denies any back or flank pain. Remaining review systems negative upon arrival patient appears well and nontoxic distress vital signs within acceptable limits. - Related Data Home Medications Medication Instructions Recorded Confirmed Levothyroxine Sodium [Synthroid] 200 mcg PO DAILY 08/12/17 08/27/19 Omeprazole 40 mg PO DAILY PRN 08/12/17 08/27/19 Montelukast [Singulair] 10 mg PO DAILY 11/17/18 08/27/19 Albuterol Inhaler (Mhu) [Ventolin 1 - 2 puff INHALATION RT-Q6H PRN 01/12/19 08/27/19 Hfa Inhaler] Beclomethasone Dip 80 Mcg/Puff 2 puff INHALATION RT-DAILY 01/12/19 08/27/19 [Qvar 80 mcg] FLUoxetine HCL [PROzac] 20 mg PO DAILY 01/12/19 08/27/19 Levothyroxine Sodium [Synthroid] 25 mcg PO DAILY 01/12/19 08/27/19 Ferrous Sulfate [Feosol] 325 mg PO DAILY 06/25/19 08/27/19 Albuterol Nebulized [Ventolin 2.5 mg INHALATION RT-Q4H PRN 07/14/19 08/27/19 Nebulized] Loratadine [Claritin] 10 mg PO DAILY 07/14/19 08/27/19 Previous Rx's Medication Instructions Recorded Ondansetron Odt [Zofran Odt] 4 mg PO Q8HR PRN #10 tab 08/27/19 Ondansetron Odt [Zofran Odt] 4 mg PO Q8HR PRN 3 Days #9 tab 10/23/19 Ondansetron [Zofran ODT] 4 mg PO Q8HR PRN #10 tab 11/14/19 Diphenox-Atrop 2.5-0.025 mg 1 tab PO 5XD PRN 3 Days #15 tablet 01/22/21 [Lomotil] Ondansetron Odt [Zofran Odt] 4 mg PO Q8HR PRN 7 Days #21 tab 01/22/21 Allergies Allergy/AdvReac Type Severity Reaction Status Date / Time benzonatate Allergy Rash/Hives Verified 01/22/21 13:01 [From Tessalon Perles] Milk Containing Products Allergy Unknown Verified 01/22/21 13:01 [Dairy] sulfamethoxazole Allergy Rash/Hives Verified 01/22/21 13:01 [From Bactrim] trimethoprim [From Bactrim] Allergy Rash/Hives Verified 01/22/21 13:01 ibuprofen [From Motrin] AdvReac KIDNEY PAIN Verified 01/22/21 13:01 metoclopramide [From Reglan] AdvReac ANXIETY Verified 01/22/21 13:01 Review of Systems ROS Statement: Those systems with pertinent positive or pertinent negative responses have been documented in the HPI. ROS Other: All systems not noted in ROS Statement are negative. Past Medical History Past Medical History: Asthma, Diabetes Mellitus, GERD/Reflux, Thyroid Disorder Additional Past Medical History / Comment(s): anemia History of Any Multi-Drug Resistant Organisms: None Reported Past Surgical History: Adenoidectomy Additional Past Surgical History / Comment(s): Eye surgery Past Psychological History: Anxiety, Depression Smoking Status: Current some day smoker Past Alcohol Use History: Occasional Past Drug Use History: Marijuana General Exam - General Exam Comments Initial Comments: General: The patient is awake and alert, in no distress Eye: Pupils are equal, round and reactive to light, extra-ocular movements are intact. No nystagmus. There is normal conjunctiva bilaterally. No signs of icterus. Ears, nose, mouth and throat: There are moist mucous membranes and no oral lesions. Neck: The neck is supple, there is no tenderness or JVD. Cardiovascular: There is a regular rate and rhythm. No murmur, rub or gallop is appreciated. Respiratory: Lungs are clear to auscultation, respirations are non-labored, breath sounds are equal. No wheezes, stridor, rales, or rhonchi. Gastrointestinal: Soft, non-distended, non-tender abdomen without masses or organomegaly noted. There is no rebound or guarding present. Musculoskeletal: Normal ROM, no tenderness. Strength 5/5. Sensation intact. Pulses equal bilaterally 2+. Neurological: A&O x 3. CN II-XII intact grossly, There are no obvious motor or sensory deficits. Coordination appears grossly intact. Speech is normal. Skin: Skin is warm and dry and no rashes or lesions are noted. Psychiatric: Cooperative, appropriate mood & affect, normal judgment. Limitations: no limitations Course Vital Signs 01/22/21 01/22/21 12:58 15:50 Temperature 98.0 F Pulse Rate 83 71 Respiratory 18 16 Rate Blood Pressure 134/82 142/82 O2 Sat by Pulse 98 100 Oximetry Medical Decision Making - Medical Decision Making Mild Leukocytosis,nad elevated glucose. Otherwise laboratory studies within relatively normal ranges. patient abdomen soft nontender, no signs of acute abdomen. Patient symptoms improved, no vomiting nor diarrhea in ER. Prescribed lomotil and zofran. is to f/u with GI given how these symptoms are cyclical/recurrent patient agreeable and discharged appearing well. - Lab Data Result diagrams: 01/22/21 14:59 01/22/21 14:59 Lab Results 01/22/21 01/22/21 01/22/21 Range/Units 14:59 14:59 14:59 WBC 12.7 H (3.8-10.6) k/uL RBC 5.09 (3.80-5.40) m/uL Hgb 15.3 (11.4-16.0) gm/dL Hct 44.0 (34.0-46.0) % MCV 86.3 (80.0-100.0) fL MCH 30.0 (25.0-35.0) pg MCHC 34.8 (31.0-37.0) g/dL RDW 13.2 (11.5-15.5) % Plt Count 322 (150-450) k/uL MPV 7.5 Neutrophils % 79 % Lymphocytes % 15 % Monocytes % 3 % Eosinophils % 2 % Basophils % 0 % Neutrophils # 10.0 H (1.3-7.7) k/uL Lymphocytes # 1.9 (1.0-4.8) k/uL Monocytes # 0.4 (0-1.0) k/uL Eosinophils # 0.3 (0-0.7) k/uL Basophils # 0.0 (0-0.2) k/uL Sodium (137-145) mmol/L Potassium (3.5-5.1) mmol/L Chloride (98-107) mmol/L Carbon Dioxide (22-30) mmol/L Anion Gap mmol/L BUN (7-17) mg/dL Creatinine (0.52-1.04) mg/dL Est GFR (CKD-EPI)AfAm (>60 ml/min/1.73 sqM) Est GFR (CKD-EPI)NonAf (>60 ml/min/1.73 sqM) Glucose (74-99) mg/dL Calcium (8.4-10.2) mg/dL Total Bilirubin (0.2-1.3) mg/dL AST (14-36) U/L ALT (4-34) U/L Alkaline Phosphatase (38-126) U/L Total Protein (6.3-8.2) g/dL Albumin (3.5-5.0) g/dL Lipase (23-300) U/L Urine Color Yellow Urine Appearance Clear (Clear) Urine pH 7.0 (5.0-8.0) Ur Specific [place] 1.022 (1.001-1.035) Urine Protein Trace H (Negative) Urine Glucose (UA) Negative (Negative) Urine Ketones Negative (Negative) Urine Blood Negative (Negative) Urine Nitrite Negative (Negative) Urine Bilirubin Negative (Negative) Urine Urobilinogen <2.0 (<2.0) mg/dL Ur Leukocyte Esterase Negative (Negative) Urine HCG, Qual Not Detected (Not Detectd) 01/22/21 Range/Units 14:59 WBC (3.8-10.6) k/uL RBC (3.80-5.40) m/uL Hgb (11.4-16.0) gm/dL Hct (34.0-46.0) % MCV (80.0-100.0) fL MCH (25.0-35.0) pg MCHC (31.0-37.0) g/dL RDW (11.5-15.5) % Plt Count (150-450) k/uL MPV Neutrophils % % Lymphocytes % % Monocytes % % Eosinophils % % Basophils % % Neutrophils # (1.3-7.7) k/uL Lymphocytes # (1.0-4.8) k/uL Monocytes # (0-1.0) k/uL Eosinophils # (0-0.7) k/uL Basophils # (0-0.2) k/uL Sodium 139 (137-145) mmol/L Potassium 4.3 (3.5-5.1) mmol/L Chloride 103 (98-107) mmol/L Carbon Dioxide 28 (22-30) mmol/L Anion Gap 8 mmol/L BUN 10 (7-17) mg/dL Creatinine 0.60 (0.52-1.04) mg/dL Est GFR (CKD-EPI)AfAm >90 (>60 ml/min/1.73 sqM) Est GFR (CKD-EPI)NonAf >90 (>60 ml/min/1.73 sqM) Glucose 144 H (74-99) mg/dL Calcium 8.8 (8.4-10.2) mg/dL Total Bilirubin 0.4 (0.2-1.3) mg/dL AST 48 H (14-36) U/L ALT 43 H (4-34) U/L Alkaline Phosphatase 62 (38-126) U/L Total Protein 7.5 (6.3-8.2) g/dL Albumin 4.0 (3.5-5.0) g/dL Lipase 102 (23-300) U/L Urine Color Urine Appearance (Clear) Urine pH (5.0-8.0) Ur Specific [place] (1.001-1.035) Urine Protein (Negative) Urine Glucose (UA) (Negative) Urine Ketones (Negative) Urine Blood (Negative) Urine Nitrite (Negative) Urine Bilirubin (Negative) Urine Urobilinogen (<2.0) mg/dL Ur Leukocyte Esterase (Negative) Urine HCG, Qual (Not Detectd) Disposition Clinical Impression: Nausea and vomiting, Diarrhea Disposition: HOME SELF-CARE Condition: Good Instructions (If sedation given, give patient instructions): Acute Nausea and Vomiting (ED), Acute Diarrhea (ED) Additional Instructions: Please use medication as discussed. Please follow-up with family doctor in the next 2 days. Follow-up with a GI specialist. Please return to emergency room if the symptoms increase or worsen or for any other concerns. Prescriptions: Diphenox-Atrop 2.5-0.025 mg [Lomotil] 1 tab PO 5XD PRN 3 Days #15 tablet PRN Reason: Diarrhea Ondansetron Odt [Zofran Odt] 4 mg PO Q8HR PRN 7 Days #21 tab PRN Reason: Nausea Is patient prescribed a controlled substance at d/c from ED?: No Referrals: Dave Boykin [Primary Care Provider] - 1-2 days Time of Disposition: 15:33
[2021-01-22 15:07] LABS: Basophils % (A) 0 %; Eosinophils # (A) 0.3 k/uL (0-0.7); Eosinophils % (A) 2 %; HGB 15.3 gm/dL (11.4-16.0); Lymphocytes # (A) 1.9 k/uL (1.0-4.8); Lymphocytes % (A) 15 %; MCHC 34.8 g/dL (31.0-37.0); MCV 86.3 fL (80.0-100.0); Mean Platelet Volume 7.5; Monocytes # (A) 0.4 k/uL (0-1.0); Monocytes % (A) 3 %; Neutrophils % (A) 79 %; Platelet Count 322 k/uL (150-450); RBC 5.09 m/uL (3.80-5.40); RDW 13.2 % (11.5-15.5); WBC 12.7 k/uL (3.8-10.6)
[2021-01-22 15:11] LABS: Appearance,Urine Clear (Clear); Bilirubin,Urine Negative (Negative); Blood,Urine Negative (Negative); Color,Urine Yellow; Glucose,Urine (UA) Negative (Negative); Ketones,Urine Negative (Negative); Leukocyte Esterase,Urine Negative (Negative); Nitrite,Urine Negative (Negative); Protein,Urine Trace (Negative); Specific Gravity,Urine 1.022 (1.001-1.035); Urobilinogen,Urine <2.0 mg/dL (<2.0)
[2021-01-22 15:27] LABS: ALT 43 U/L (4-34); AST 48 U/L (14-36); African American GFR (CKD) >90 (>60 ml/min/1.73 sqM); Alkaline Phosphatase 62 U/L (38-126); Anion Gap 8 mmol/L; Blood Urea Nitrogen 10 mg/dL (7-17); Calcium 8.8 mg/dL (8.4-10.2); Carbon Dioxide 28 mmol/L (22-30); Chloride 103 mmol/L (98-107); Glucose 144 mg/dL (74-99); Lipase 102 U/L (23-300); Non-African American GFR(CKD) >90 (>60 ml/min/1.73 sqM); Potassium 4.3 mmol/L (3.5-5.1); Sodium 139 mmol/L (137-145); Total Bilirubin 0.4 mg/dL (0.2-1.3); Total Protein 7.5 g/dL (6.3-8.2)
[2021-01-22 15:51] VITALS: BP 142/82; PULSE 71; RESP 16
== END 2021-01-22 15:51 | disposition home or self-care (01) ==
LOC: EC 12:42
DX: R11.2 Nausea with vomiting, unspecified (principal); R19.7 Diarrhea, unspecified; D72.829 Elevated white blood cell count, unspecified; R73.9 Hyperglycemia, unspecified; E07.9 Disorder of thyroid, unspecified; J45.909 Unspecified asthma, uncomplicated; K21.9 Gastro-esophageal reflux disease without esophagitis; F41.9 Anxiety disorder, unspecified; F32.9 Major depressive disorder, single episode, unspecified; F17.200 Nicotine dependence, unspecified, uncomplicated; Z79.899 Other long term (current) drug therapy; Z79.890 Hormone replacement therapy; Z79.51 Long term (current) use of inhaled steroids; Z88.8 Allergy status to other drugs, medicaments and biological substances; Z91.011 Allergy to milk products; Z88.2 Allergy status to sulfonamides; Z88.1 Allergy status to other antibiotic agents; Z88.6 Allergy status to analgesic agent
CPT/HCPCS: 36415; 80053; 83690; 85025; 81003; 81025; 99284; 96374; 96361; J2405

== ENCOUNTER 2021-01-27 13:37 | Emergency (ER) | payer OTHER ==
[2021-01-27] MEDS ORDERED: ONDANSETRON 4 MG/2 ML VIAL IVP STA (14:16)
[2021-01-27] MEDS ORDERED: MORPHINE SULFATE 4 MG/ML SYRINGE IV STA (14:16)
[2021-01-27] MEDS ORDERED: SODIUM CHLORIDE 0.9% 1,000 ML IV STA (14:16)
--- NOTE | 2021-01-27 14:35 | ED ---
Abdominal Pain HPI - General Chief Complaint: Abdominal Pain Stated Complaint: Nausea Time Seen by Provider: 01/27/21 14:05 Source: patient, RN notes reviewed Mode of arrival: ambulatory Limitations: no limitations - History of Present Illness Initial Comments: Patient is a 25-year-old female that presents to the emergency department complaining of abdominal pain with several bouts of diarrhea today. Mary was recently seen on 01/22/2021 for similar complaint and was discharged home with Zofran and an antidiarrheal medication. She notes that she has had no improvement since the eighth and came back to get evaluated once more. She was well-appearing and hydrated while sitting in bed during the examination interview. She noted that her diarrheal bouts were watery and yellow with no blood. She states that she has just been eating soup for the last all days due to the diarrhea and nausea and vomiting feelings. She denied any new chest pain shortness of breath headache constipation fever fatigue chills weakness lightheadedness dizziness. - Related Data Home Medications Medication Instructions Recorded Confirmed Levothyroxine Sodium [Synthroid] 200 mcg PO DAILY 08/12/17 08/27/19 Omeprazole 40 mg PO DAILY PRN 08/12/17 08/27/19 Montelukast [Singulair] 10 mg PO DAILY 11/17/18 08/27/19 Albuterol Inhaler (Mhu) [Ventolin 1 - 2 puff INHALATION RT-Q6H PRN 01/12/19 08/27/19 Hfa Inhaler] Beclomethasone Dip 80 Mcg/Puff 2 puff INHALATION RT-DAILY 01/12/19 08/27/19 [Qvar 80 mcg] FLUoxetine HCL [PROzac] 20 mg PO DAILY 01/12/19 08/27/19 Levothyroxine Sodium [Synthroid] 25 mcg PO DAILY 01/12/19 08/27/19 Ferrous Sulfate [Feosol] 325 mg PO DAILY 06/25/19 08/27/19 Albuterol Nebulized [Ventolin 2.5 mg INHALATION RT-Q4H PRN 07/14/19 08/27/19 Nebulized] Loratadine [Claritin] 10 mg PO DAILY 07/14/19 08/27/19 Previous Rx's Medication Instructions Recorded Ondansetron Odt [Zofran Odt] 4 mg PO Q8HR PRN #10 tab 08/27/19 Ondansetron Odt [Zofran Odt] 4 mg PO Q8HR PRN 3 Days #9 tab 10/23/19 Ondansetron [Zofran ODT] 4 mg PO Q8HR PRN #10 tab 11/14/19 Diphenox-Atrop 2.5-0.025 mg 1 tab PO 5XD PRN 3 Days #15 tablet 01/22/21 [Lomotil] Ondansetron Odt [Zofran Odt] 4 mg PO Q8HR PRN 7 Days #21 tab 01/22/21 Allergies Allergy/AdvReac Type Severity Reaction Status Date / Time benzonatate Allergy Rash/Hives Verified 01/27/21 14:01 [From Tessalon Perles] Milk Containing Products Allergy Unknown Verified 01/27/21 14:01 [Dairy] sulfamethoxazole Allergy Rash/Hives Verified 01/27/21 14:01 [From Bactrim] trimethoprim [From Bactrim] Allergy Rash/Hives Verified 01/27/21 14:01 ibuprofen [From Motrin] AdvReac KIDNEY PAIN Verified 01/27/21 14:01 metoclopramide [From Reglan] AdvReac ANXIETY Verified 01/27/21 14:01 Review of Systems ROS Statement: Those systems with pertinent positive or pertinent negative responses have been documented in the HPI. ROS Other: All systems not noted in ROS Statement are negative. Past Medical History Past Medical History: Asthma, Diabetes Mellitus, GERD/Reflux, Thyroid Disorder Additional Past Medical History / Comment(s): anemia History of Any Multi-Drug Resistant Organisms: None Reported Past Surgical History: Adenoidectomy Additional Past Surgical History / Comment(s): Eye surgery Past Psychological History: Anxiety, Depression Smoking Status: Current some day smoker Past Alcohol Use History: Occasional Past Drug Use History: Marijuana General Exam Limitations: no limitations General appearance: alert, in no apparent distress, obese Head exam: Present: atraumatic, normocephalic, normal inspection Eye exam: Present: normal appearance, PERRL, EOMI. Absent: scleral icterus, conjunctival injection, periorbital swelling ENT exam: Present: normal exam, mucous membranes moist Neck exam: Present: normal inspection. Absent: tenderness, meningismus, lymphad enopathy Respiratory exam: Present: normal lung sounds bilaterally. Absent: respiratory distress, wheezes, rales, rhonchi, stridor Cardiovascular Exam: Present: regular rate, normal rhythm, normal heart sounds. Absent: systolic murmur, diastolic murmur, rubs, gallop, clicks GI/Abdominal exam: Present: soft, tenderness (Epigastric area), normal bowel sounds. Absent: distended, guarding, rebound, rigid Extremities exam: Present: normal inspection, full ROM, normal capillary refill. Absent: tenderness, pedal edema, joint swelling, calf tenderness Neurological exam: Present: alert, oriented X3, CN II-XII intact Psychiatric exam: Present: normal affect, normal mood Skin exam: Present: warm, dry, intact, normal color. Absent: rash Course Vital Signs 01/27/21 14:01 Temperature 98.5 F Pulse Rate 91 Respiratory 18 Rate Blood Pressure 138/97 O2 Sat by Pulse 98 Oximetry Medical Decision Making - Medical Decision Making 25 she'll female complaining of abdominal pain diarrhea. Labs, 1 L normal saline, 4 mg of morphine, 4 mg of Zofran ordered. Labs unremarkable. CT of the abdomen and pelvis showed no acute processes or inflammation. Case discussed with Dr. Hernandez, patient can discharge home with conservative management. - Lab Data Result diagrams: 01/27/21 14:44 01/27/21 14:44 Lab Results 01/27/21 01/27/21 01/27/21 Range/Units 14:44 14:44 14:44 WBC 12.1 H (3.8-10.6) k/uL RBC 5.43 H (3.80-5.40) m/uL Hgb 15.7 (11.4-16.0) gm/dL Hct 46.6 H (34.0-46.0) % MCV 86.0 (80.0-100.0) fL MCH 29.0 (25.0-35.0) pg MCHC 33.8 (31.0-37.0) g/dL RDW 13.8 (11.5-15.5) % Plt Count 333 (150-450) k/uL MPV 7.5 Neutrophils % 75 % Lymphocytes % 19 % Monocytes % 4 % Eosinophils % 2 % Basophils % 1 % Neutrophils # 9.0 H (1.3-7.7) k/uL Lymphocytes # 2.2 (1.0-4.8) k/uL Monocytes # 0.4 (0-1.0) k/uL Eosinophils # 0.3 (0-0.7) k/uL Basophils # 0.1 (0-0.2) k/uL Sodium (137-145) mmol/L Potassium (3.5-5.1) mmol/L Chloride (98-107) mmol/L Carbon Dioxide (22-30) mmol/L Anion Gap mmol/L BUN (7-17) mg/dL Creatinine (0.52-1.04) mg/dL Est GFR (CKD-EPI)AfAm (>60 ml/min/1.73 sqM) Est GFR (CKD-EPI)NonAf (>60 ml/min/1.73 sqM) Glucose (74-99) mg/dL Calcium (8.4-10.2) mg/dL Total Bilirubin (0.2-1.3) mg/dL AST (14-36) U/L ALT (4-34) U/L Alkaline Phosphatase (38-126) U/L Total Protein (6.3-8.2) g/dL Albumin (3.5-5.0) g/dL Amylase (30-110) U/L Lipase (23-300) U/L Urine Color Yellow Urine Appearance Clear (Clear) Urine pH 6.0 (5.0-8.0) Ur Specific [place] 1.016 (1.001-1.035) Urine Protein Negative (Negative) Urine Glucose (UA) Negative (Negative) Urine Ketones Negative (Negative) Urine Blood Trace H (Negative) Urine Nitrite Negative (Negative) Urine Bilirubin Negative (Negative) Urine Urobilinogen <2.0 (<2.0) mg/dL Ur Leukocyte Esterase Negative (Negative) Urine RBC 4 (0-5) /hpf Urine WBC 1 (0-5) /hpf Ur Squamous Epith Cells 1 (0-4) /hpf Urine Bacteria Occasional H (None) /hpf Urine Mucus Rare H (None) /hpf Urine HCG, Qual Not Detected (Not Detectd) 01/27/21 Range/Units 14:44 WBC (3.8-10.6) k/uL RBC (3.80-5.40) m/uL Hgb (11.4-16.0) gm/dL Hct (34.0-46.0) % MCV (80.0-100.0) fL MCH (25.0-35.0) pg MCHC (31.0-37.0) g/dL RDW (11.5-15.5) % Plt Count (150-450) k/uL MPV Neutrophils % % Lymphocytes % % Monocytes % % Eosinophils % % Basophils % % Neutrophils # (1.3-7.7) k/uL Lymphocytes # (1.0-4.8) k/uL Monocytes # (0-1.0) k/uL Eosinophils # (0-0.7) k/uL Basophils # (0-0.2) k/uL Sodium 140 (137-145) mmol/L Potassium 4.4 (3.5-5.1) mmol/L Chloride 103 (98-107) mmol/L Carbon Dioxide 27 (22-30) mmol/L Anion Gap 10 mmol/L BUN 7 (7-17) mg/dL Creatinine 0.69 (0.52-1.04) mg/dL Est GFR (CKD-EPI)AfAm >90 (>60 ml/min/1.73 sqM) Est GFR (CKD-EPI)NonAf >90 (>60 ml/min/1.73 sqM) Glucose 140 H (74-99) mg/dL Calcium 9.5 (8.4-10.2) mg/dL Total Bilirubin 0.6 (0.2-1.3) mg/dL AST 47 H (14-36) U/L ALT 44 H (4-34) U/L Alkaline Phosphatase 64 (38-126) U/L Total Protein 7.9 (6.3-8.2) g/dL Albumin 4.3 (3.5-5.0) g/dL Amylase 40 (30-110) U/L Lipase 101 (23-300) U/L Urine Color Urine Appearance (Clear) Urine pH (5.0-8.0) Ur Specific [place] (1.001-1.035) Urine Protein (Negative) Urine Glucose (UA) (Negative) Urine Ketones (Negative) Urine Blood (Negative) Urine Nitrite (Negative) Urine Bilirubin (Negative) Urine Urobilinogen (<2.0) mg/dL Ur Leukocyte Esterase (Negative) Urine RBC (0-5) /hpf Urine WBC (0-5) /hpf Ur Squamous Epith Cells (0-4) /hpf Urine Bacteria (None) /hpf Urine Mucus (None) /hpf Urine HCG, Qual (Not Detectd) - Radiology Data Radiology results: report reviewed, image reviewed CT of the abdomen and pelvis: fatty infiltration of the liver and hepatomegaly unchanged. No acute abnormality the of the abdomen and pelvis. Disposition Clinical Impression: Diarrhea, Nausea and vomiting, Dehydration, Gastroenteritis Disposition: HOME SELF-CARE Condition: Stable Instructions (If sedation given, give patient instructions): Gastroenteritis (ED), Dehydration (ED) Additional Instructions: Please return to the Emergency Department if symptoms worsen or any other concerns. Continue to increase oral fluid intake and eat bland diet. Follow-up with primary care in 2-4 days. Take [id number] medications as needed for symptomatic control. Is patient prescribed a controlled substance at d/c from ED?: No Referrals: None,Stated [Primary Care Provider] - 1-2 days Time of Disposition: 16:34
[2021-01-27 15:17] LABS: Basophils # (A) 0.1 k/uL (0-0.2); Basophils % (A) 1 %; Eosinophils # (A) 0.3 k/uL (0-0.7); Eosinophils % (A) 2 %; HCT 46.6 % (34.0-46.0); HGB 15.7 gm/dL (11.4-16.0); Lymphocytes # (A) 2.2 k/uL (1.0-4.8); Lymphocytes % (A) 19 %; MCHC 33.8 g/dL (31.0-37.0); Mean Platelet Volume 7.5; Monocytes # (A) 0.4 k/uL (0-1.0); Monocytes % (A) 4 %; Neutrophils % (A) 75 %; Platelet Count 333 k/uL (150-450); RBC 5.43 m/uL (3.80-5.40); RDW 13.8 % (11.5-15.5); WBC 12.1 k/uL (3.8-10.6)
[2021-01-27 15:22] LABS: Appearance,Urine Clear (Clear); Bacteria,Urine Occasional /hpf; Bilirubin,Urine Negative (Negative); Blood,Urine Trace (Negative); Color,Urine Yellow; Glucose,Urine (UA) Negative (Negative); Ketones,Urine Negative (Negative); Leukocyte Esterase,Urine Negative (Negative); Mucus,Urine Rare /hpf; Nitrite,Urine Negative (Negative); Protein,Urine Negative (Negative); RBC,Urine 4 /hpf (0-5); Specific Gravity,Urine 1.016 (1.001-1.035); Squamous Epithelial Cell,Urine 1 /hpf (0-4); Urobilinogen,Urine <2.0 mg/dL (<2.0); WBC,Urine 1 /hpf (0-5)
[2021-01-27 15:39] LABS: ALT 44 U/L (4-34); AST 47 U/L (14-36); African American GFR (CKD) >90 (>60 ml/min/1.73 sqM); Albumin 4.3 g/dL (3.5-5.0); Alkaline Phosphatase 64 U/L (38-126); Amylase 40 U/L (30-110); Anion Gap 10 mmol/L; Blood Urea Nitrogen 7 mg/dL (7-17); Calcium 9.5 mg/dL (8.4-10.2); Carbon Dioxide 27 mmol/L (22-30); Chloride 103 mmol/L (98-107); Glucose 140 mg/dL (74-99); Lipase 101 U/L (23-300); Non-African American GFR(CKD) >90 (>60 ml/min/1.73 sqM); Potassium 4.4 mmol/L (3.5-5.1); Sodium 140 mmol/L (137-145); Total Bilirubin 0.6 mg/dL (0.2-1.3); Total Protein 7.9 g/dL (6.3-8.2)
--- NOTE | 2021-01-27 16:29 | CT ---
EXAMINATION TYPE: CT abdomen pelvis w con DATE OF EXAM: 01/27/2021 COMPARISON: 06/25/2019 HISTORY: Generalized abdominal pain, diarrhea, nausea and vomiting. CT DLP: 3125.4 mGycm Automated exposure control for dose reduction was used. CONTRAST: Performed with IV Contrast, patient injected with 100ml mL of Isovue 300. Images obtained from the diaphragm to the floor the pelvis with IV contrast. Lung bases are clear. There is no pleural effusion. There is no pericardial effusion. There is mild fatty infiltration of the liver. Spleen is intact. There is no pancreatic mass. Gallbla dder appears normal. Liver is enlarged and measures 27 cm in length. There is no adrenal mass. Kidneys show satisfactory contrast opacification. There is no hydronephrosi s. There is no retroperitoneal adenopathy. Ureters are not dilated. Delayed images show normal renal excretion. Bladder distends smoothly. There is no inguinal hernia. There is no free fluid in the pelv is. Uterus is retroverted. Lumbar vertebra have normal alignment. Disc spaces are fairly normal. There is no compression fractur e. The bony pelvis is intact. The hip joints are intact. There is no mesenteric edema. There is no ascites or free air. There is no bowel obstruction. Appendi x is not seen. There is no sign of thickened appendix. IMPRESSION: Fatty infiltration of the liver and hepatomegaly unchanged. No acute abnormality of the abdomen pelvi s.
[2021-01-27 16:37] VITALS: BP 124/68; PULSE 64; RESP 16; TEMP 97.6
== END 2021-01-27 16:56 | disposition home or self-care (01) ==
LOC: EC 13:37
DX: K52.9 Noninfective gastroenteritis and colitis, unspecified (principal); E86.0 Dehydration; E11.9 Type 2 diabetes mellitus without complications; F32.9 Major depressive disorder, single episode, unspecified; F41.9 Anxiety disorder, unspecified; J45.909 Unspecified asthma, uncomplicated; K21.9 Gastro-esophageal reflux disease without esophagitis; Z79.51 Long term (current) use of inhaled steroids
CPT/HCPCS: 36415; 80053; 82150; 83690; 85025; 81001; 81025; 74177; 99284; 96374; 96375; 96361; J2270; J2405; Q9967

== ENCOUNTER → 2021-03-28 | Outpatient (CLI) | payer OTHER ==
[2021-03-28 20:13] LABS: Basophils # (A) 0.04 X 10*3/uL (0.00-0.10); Basophils % (A) 0.4 %; Eosinophils # (A) 0.35 X 10*3/uL (0.04-0.35); Eosinophils % (A) 3.3 %; HCT 43.9 % (37.2-46.3); HGB 14.6 g/dL (12.0-15.0); Lymphocytes # (A) 2.33 X 10*3/uL (0.90-5.00); MCH 29.4 pg (27.0-32.0); MCHC 33.3 g/dL (32.0-37.0); MCV 88.5 fL (80.0-97.0); Mean Platelet Volume 10.9 fL (9.5-12.2); Monocytes # (A) 0.64 X 10*3/uL (0.20-1.00); Neutrophils # (A) 7.19 X 10*3/uL (1.80-7.70); Platelet Count 358 X 10*3/uL (140-440); RBC 4.96 X 10*6/uL (4.10-5.20); RDW 12.8 % (11.5-14.5); WBC 10.58 X 10*3/uL (4.50-10.00)
[2021-03-28 22:07] LABS: Gliadin AB IgA, Deaminated NEGATIVE (NEGATIVE); Gliadin AB IgA, Unit 11.6 U/mL; Gliadin AB IgG, Deaminated NEGATIVE (NEGATIVE)
[2021-03-28 22:38] LABS: Erythrocyte Sedimentation Rate 49 mm/Hr (0-20)
[2021-03-28 23:03] LABS: African American GFR (CKD) 137.6 (60.0-200.0); Albumin 4.1 g/dL (3.80-4.90); Albumin/Globulin Ratio 1.46 (1.60-3.17); Anion Gap 8.6 mmol/L (4.00-12.00); BUN/Creat Ratio 11.43 Ratio (12.00-20.00); C Reactive Protein 2.2 mg/dL (0.0-0.8); Carbon Dioxide 27.4 mmol/L (21.6-31.8); Chol/HDL Ratio 4.25; Globulin 2.8 g/dL (1.6-3.3); Non-African American GFR(CKD) 118.7 (60.0-200.0); Potassium 4.5 mmol/L (3.5-5.5); Total Bilirubin 0.6 mg/dL (0.3-1.2); Total Protein 6.9 g/dL (6.2-8.2)
== END | disposition home or self-care (01) ==
LOC: LABWHC1 12:38
PROVIDERS: ATTEND Family Medicine
DX: R10.9 Unspecified abdominal pain (principal); K52.9 Noninfective gastroenteritis and colitis, unspecified
CPT/HCPCS: 36415; 80053; 80061; 82150; 83516; 83690; 85025; 85652; 86140

== ENCOUNTER 2021-05-07 11:36 | Emergency (ER) | payer OTHER ==
[2021-05-07] MEDS ORDERED: SODIUM CHLORIDE 0.9% 1,000 ML IV STA (12:56)
[2021-05-07] MEDS ORDERED: ONDANSETRON 4 MG/2 ML VIAL IVP STA (12:56)
[2021-05-07] MEDS ORDERED: MORPHINE SULFATE 4 MG/ML SYRINGE IV STA (12:56)
--- NOTE | 2021-05-07 13:03 | ED ---
General Adult HPI - General Chief complaint: Abdominal Pain Stated complaint: nausea, vomiting Time Seen by Provider: 05/07/21 12:46 Source: patient Mode of arrival: ambulatory Limitations: no limitations - History of Present Illness Initial comments: Dictation was produced using [employer] dictation software. please excuse any grammatical, word or spelling errors. Chief Complaint: 26-year-old female presents to the emergency department for nausea vomiting and abdominal pain. History of Present Illness: 26-year-old male with past medical history of asthma, diabetes in the emergency department for nausea, vomiting and abdominal pain. Patient states abdominal pain is diffuse localized all quadrants. She has an point with GI. Patient has been worked up on outpatient basis for colitis. She states that this when she woke up with nausea and vomiting. Vomiting was not bilious nonbloody. States she's been retching. Patient denies any abdominal surgery. No diarrhea The ROS documented in this emergency department record has been reviewed and confirmed by me. Those systems with pertinent positive or negative responses have been documented in the HPI. All other systems are other negative and/or noncontributory. PHYSICAL EXAM: General Impression: Alert and oriented x3, not in acute distress HEENT: Normocephalic atraumatic, extra-ocular movements intact, pupils equal and reactive to light bilaterally, mucous membranes moist. Cardiovascular: Heart regular rate and rhythm Chest: Able to complete full sentences, no retractions, no tachypnea Abdomen: abdomen soft, minimal diffuse abdominal tenderness to palpation, non- distended, no organomegaly Musculoskeletal: Pulses present and equal in all extremities, no peripheral edema Motor: no focal deficits noted Neurological: CN II-XII grossly intact, no focal motor or sensory deficits noted Skin: Intact with no visualized rashes Psych: Normal affect and mood ED course: 27-year-old female presents to the emergency department for nausea vomiting abdominal pain. Physical examination is mostly benign. She does have some minimal tenderness to palpation of the abdomen. Vital signs upon arrival shows tachycardia 118, rest of vital signs within acceptable limits. Laboratory evaluation obtained. CBC, metabolic panel, abdominal labs are negative. Urinalysis is negative. Abdominal x-rays obtained. Patient was observed in the emergency department for approximately 3 hours. She is reevaluated at bedside found in stable medical condition. She is encouraged to maintain her point with GI this week. - Related Data Home Medications Medication Instructions Recorded Confirmed Levothyroxine Sodium [Synthroid] 200 mcg PO DAILY@1500 08/12/17 05/07/21 Omeprazole 40 mg PO HS 08/12/17 05/07/21 Montelukast [Singulair] 10 mg PO DAILY@1500 11/17/18 05/07/21 FLUoxetine HCL [PROzac] 20 mg PO DAILY@1500 01/12/19 05/07/21 Levothyroxine Sodium [Synthroid] 25 mcg PO Q48H 01/12/19 05/07/21 Ferrous Sulfate [Feosol] 325 mg PO DAILY@1500 06/25/19 05/07/21 Loratadine [Claritin] 10 mg PO DAILY@1500 07/14/19 05/07/21 Albuterol Sulfate [Albuterol 1 - 2 puff PO RT-Q6H PRN 05/07/21 05/07/21 Sulfate Hfa] Fluticasone Propionate [Flovent 2 puff INHALATION RT-BID 05/07/21 05/07/21 Hfa 220 mcg] Norethindrone-E.estradiol-Iron 1 tab PO DAILY@1500 05/07/21 05/07/21 [Aurovela 24 Fe 1 mg-20 Mcg Tab] Ondansetron Odt [Zofran Odt] 4 - 8 mg PO BID PRN 05/07/21 05/07/21 Allergies Allergy/AdvReac Type Severity Reaction Status Date / Time benzonatate Allergy Rash/Hives Verified 05/07/21 14:06 [From Tessalon Perles] Milk Containing Products Allergy Unknown Verified 05/07/21 14:06 [Dairy] sulfamethoxazole Allergy Rash/Hives Verified 05/07/21 14:06 [From Bactrim] trimethoprim [From Bactrim] Allergy Rash/Hives Verified 05/07/21 14:06 ibuprofen [From Motrin] AdvReac KIDNEY PAIN Verified 05/07/21 14:06 metoclopramide [From Reglan] AdvReac ANXIETY Verified 05/07/21 14:06 Review of Systems ROS Statement: Those systems with pertinent positive or pertinent negative responses have been documented in the HPI. ROS Other: All systems not noted in ROS Statement are negative. Past Medical History Past Medical History: Asthma, Diabetes Mellitus, GERD/Reflux, Thyroid Disorder Additional Past Medical History / Comment(s): anemia History of Any Multi-Drug Resistant Organisms: None Reported Past Surgical History: Adenoidectomy Additional Past Surgical History / Comment(s): Eye surgery Past Psychological History: Anxiety, Depression Smoking Status: Former smoker Past Alcohol Use History: Occasional Past Drug Use History: Marijuana General Exam Limitations: no limitations Course Vital Signs 05/07/21 11:40 Temperature 97.8 F Pulse Rate 118 H Respiratory 18 Rate Blood Pressure 130/94 O2 Sat by Pulse 97 Oximetry Medical Decision Making - Lab Data Result diagrams: 05/07/21 12:48 05/07/21 12:48 Lab Results 05/07/21 05/07/21 05/07/21 Range/Units 12:48 12:48 12:48 WBC 10.9 H (3.8-10.6) k/uL RBC 5.29 (3.80-5.40) m/uL Hgb 15.7 (11.4-16.0) gm/dL Hct 45.2 (34.0-46.0) % MCV 85.4 (80.0-100.0) fL MCH 29.7 (25.0-35.0) pg MCHC 34.8 (31.0-37.0) g/dL RDW 12.8 (11.5-15.5) % Plt Count 349 (150-450) k/uL MPV 7.7 Neutrophils % 66 % Lymphocytes % 23 % Monocytes % 4 % Eosinophils % 4 % Basophils % 1 % Neutrophils # 7.2 (1.3-7.7) k/uL Lymphocytes # 2.5 (1.0-4.8) k/uL Monocytes # 0.5 (0-1.0) k/uL Eosinophils # 0.5 (0-0.7) k/uL Basophils # 0.1 (0-0.2) k/uL Sodium 140 (137-145) mmol/L Potassium 4.5 (3.5-5.1) mmol/L Chloride 106 (98-107) mmol/L Carbon Dioxide 26 (22-30) mmol/L Anion Gap 8 mmol/L BUN 9 (7-17) mg/dL Creatinine 0.58 (0.52-1.04) mg/dL Est GFR (CKD-EPI)AfAm >90 (>60 ml/min/1.73 sqM) Est GFR (CKD-EPI)NonAf >90 (>60 ml/min/1.73 sqM) Glucose 150 H (74-99) mg/dL Calcium 8.8 (8.4-10.2) mg/dL Total Bilirubin 0.5 (0.2-1.3) mg/dL AST 36 (14-36) U/L ALT 30 (4-34) U/L Alkaline Phosphatase 62 (38-126) U/L Total Protein 7.4 (6.3-8.2) g/dL Albumin 4.1 (3.5-5.0) g/dL Lipase 125 (23-300) U/L Urine Color Yellow Urine Appearance Cloudy H (Clear) Urine pH 6.5 (5.0-8.0) Ur Specific [place] 1.017 (1.001-1.035) Urine Protein 1+ H (Negative) Urine Glucose (UA) 1+ H (Negative) Urine Ketones Negative (Negative) Urine Blood Negative (Negative) Urine Nitrite Negative (Negative) Urine Bilirubin Negative (Negative) Urine Urobilinogen <2.0 (<2.0) mg/dL Ur Leukocyte Esterase Trace H (Negative) Urine RBC 4 (0-5) /hpf Urine WBC 3 (0-5) /hpf Ur Squamous Epith Cells 5 H (0-4) /hpf Urine Bacteria Occasional H (None) /hpf Urine Mucus Rare H (None) /hpf Urine HCG, Qual (Not Detectd) 05/07/21 Range/Units 12:48 WBC (3.8-10.6) k/uL RBC (3.80-5.40) m/uL Hgb (11.4-16.0) gm/dL Hct (34.0-46.0) % MCV (80.0-100.0) fL MCH (25.0-35.0) pg MCHC (31.0-37.0) g/dL RDW (11.5-15.5) % Plt Count (150-450) k/uL MPV Neutrophils % % Lymphocytes % % Monocytes % % Eosinophils % % Basophils % % Neutrophils # (1.3-7.7) k/uL Lymphocytes # (1.0-4.8) k/uL Monocytes # (0-1.0) k/uL Eosinophils # (0-0.7) k/uL Basophils # (0-0.2) k/uL Sodium (137-145) mmol/L Potassium (3.5-5.1) mmol/L Chloride (98-107) mmol/L Carbon Dioxide (22-30) mmol/L Anion Gap mmol/L BUN (7-17) mg/dL Creatinine (0.52-1.04) mg/dL Est GFR (CKD-EPI)AfAm (>60 ml/min/1.73 sqM) Est GFR (CKD-EPI)NonAf (>60 ml/min/1.73 sqM) Glucose (74-99) mg/dL Calcium (8.4-10.2) mg/dL Total Bilirubin (0.2-1.3) mg/dL AST (14-36) U/L ALT (4-34) U/L Alkaline Phosphatase (38-126) U/L Total Protein (6.3-8.2) g/dL Albumin (3.5-5.0) g/dL Lipase (23-300) U/L Urine Color Urine Appearance (Clear) Urine pH (5.0-8.0) Ur Specific [place] (1.001-1.035) Urine Protein (Negative) Urine Glucose (UA) (Negative) Urine Ketones (Negative) Urine Blood (Negative) Urine Nitrite (Negative) Urine Bilirubin (Negative) Urine Urobilinogen (<2.0) mg/dL Ur Leukocyte Esterase (Negative) Urine RBC (0-5) /hpf Urine WBC (0-5) /hpf Ur Squamous Epith Cells (0-4) /hpf Urine Bacteria (None) /hpf Urine Mucus (None) /hpf Urine HCG, Qual Not Detected (Not Detectd) Disposition Clinical Impression: Nausea Disposition: HOME SELF-CARE Condition: Good Instructions (If sedation given, give patient instructions): Abdominal Pain (ED) Is patient prescribed a controlled substance at d/c from ED?: No Referrals: None,Stated [REFERRING] - 1-2 days
[2021-05-07 13:14] LABS: ALT 30 U/L (4-34); AST 36 U/L (14-36); African American GFR (CKD) >90 (>60 ml/min/1.73 sqM); Albumin 4.1 g/dL (3.5-5.0); Alkaline Phosphatase 62 U/L (38-126); Anion Gap 8 mmol/L; Basophils # (A) 0.1 k/uL (0-0.2); Basophils % (A) 1 %; Blood Urea Nitrogen 9 mg/dL (7-17); Calcium 8.8 mg/dL (8.4-10.2); Carbon Dioxide 26 mmol/L (22-30); Chloride 106 mmol/L (98-107); Eosinophils # (A) 0.5 k/uL (0-0.7); Eosinophils % (A) 4 %; Glucose 150 mg/dL (74-99); HCT 45.2 % (34.0-46.0); HGB 15.7 gm/dL (11.4-16.0); Lipase 125 U/L (23-300); Lymphocytes # (A) 2.5 k/uL (1.0-4.8); Lymphocytes % (A) 23 %; MCH 29.7 pg (25.0-35.0); MCHC 34.8 g/dL (31.0-37.0); MCV 85.4 fL (80.0-100.0); Mean Platelet Volume 7.7; Monocytes # (A) 0.5 k/uL (0-1.0); Monocytes % (A) 4 %; Neutrophils # (A) 7.2 k/uL (1.3-7.7); Neutrophils % (A) 66 %; Non-African American GFR(CKD) >90 (>60 ml/min/1.73 sqM); Platelet Count 349 k/uL (150-450); Potassium 4.5 mmol/L (3.5-5.1); RBC 5.29 m/uL (3.80-5.40); RDW 12.8 % (11.5-15.5); Sodium 140 mmol/L (137-145); Total Bilirubin 0.5 mg/dL (0.2-1.3); Total Protein 7.4 g/dL (6.3-8.2); WBC 10.9 k/uL (3.8-10.6)
[2021-05-07 13:20] LABS: Appearance,Urine Cloudy (Clear); Bacteria,Urine Occasional /hpf; Bilirubin,Urine Negative (Negative); Blood,Urine Negative (Negative); Color,Urine Yellow; Glucose,Urine (UA) 1+ (Negative); Ketones,Urine Negative (Negative); Leukocyte Esterase,Urine Trace (Negative); Mucus,Urine Rare /hpf; Nitrite,Urine Negative (Negative); PH, Urine 6.5 (5.0-8.0); Protein,Urine 1+ (Negative); RBC,Urine 4 /hpf (0-5); Specific Gravity,Urine 1.017 (1.001-1.035); Squamous Epithelial Cell,Urine 5 /hpf (0-4); Urobilinogen,Urine <2.0 mg/dL (<2.0); WBC,Urine 3 /hpf (0-5)
--- NOTE | 2021-05-07 13:53 | XR ---
EXAMINATION TYPE: XR abdomen 1V DATE OF EXAM: 05/07/2021 1:48 PM CLINICAL HISTORY: Nausea and vomiting TECHNIQUE: Single supine KUB image of the abdomen is obtained. COMPARISON: None. FINDINGS: Scattered gas is seen in non-distended small bowel loops. Gas and fecal material is seen in non-distended colon. There is no visceromegaly, pneumoperitoneum, or abnormal calcification apprecia jameel. The lung bases are clear and the osseous structures are intact. IMPRESSION: Overall nonobstructive bowel gas pattern.
[2021-05-07 14:52] VITALS: BP 130/86; PULSE 82; RESP 16; TEMP 98
== END 2021-05-07 14:54 | disposition home or self-care (01) ==
LOC: EC 11:36
DX: R11.2 Nausea with vomiting, unspecified (principal); R10.84 Generalized abdominal pain; E11.9 Type 2 diabetes mellitus without complications; J45.909 Unspecified asthma, uncomplicated; F32.9 Major depressive disorder, single episode, unspecified; F41.9 Anxiety disorder, unspecified; K21.9 Gastro-esophageal reflux disease without esophagitis; F12.90 Cannabis use, unspecified, uncomplicated; Z79.51 Long term (current) use of inhaled steroids; Z79.899 Other long term (current) drug therapy; Z87.891 Personal history of nicotine dependence; Z88.1 Allergy status to other antibiotic agents; Z88.2 Allergy status to sulfonamides; Z88.6 Allergy status to analgesic agent; Z88.8 Allergy status to other drugs, medicaments and biological substances
CPT/HCPCS: 36415; 80053; 83690; 85025; 81001; 81025; 74018; 99284; 96374; 96375; 96361; J2270; J2405

== ENCOUNTER 2021-06-03 07:23 | Emergency (ER) | payer OTHER ==
[2021-06-03 07:26] VITALS: TEMP 98.1
[2021-06-03] MEDS ORDERED: SODIUM CHLORIDE 0.9% 500 ML 500 ML IV STA (07:51)
[2021-06-03] MEDS ORDERED: DICYCLOMINE 10 MG/ML 2 ML AMP IM STA (07:51)
[2021-06-03] MEDS ORDERED: FAMOTIDINE 20 MG/2 ML VIAL IV STA (07:51)
[2021-06-03] MEDS ORDERED: ONDANSETRON 4 MG/2 ML VIAL IVP STA ×2 (07:51→08:45)
--- NOTE | 2021-06-03 07:53 | ED ---
General Adult HPI - General Chief complaint: Nausea/Vomiting/Diarrhea Stated complaint: Nausea/Vomiting/Diarrhea Time Seen by Provider: 06/03/21 07:28 Source: patient, RN notes reviewed Mode of arrival: ambulatory Limitations: no limitations - History of Present Illness Initial comments: Patient is a pleasant 26-year-old female presenting to the emergency Department with complaints of nausea vomiting and diarrhea. Onset of symptoms was just a couple hours ago. Patient believes she has had around 7 episodes of diarrhea. Patient has had around 3 or 4 episodes of vomiting. Patient still has nausea. Patient has abdominal cramping. No fever. No history of similar chronic symptoms. - Related Data Home Medications Medication Instructions Recorded Confirmed Levothyroxine Sodium [Synthroid] 200 mcg PO DAILY@1500 08/12/17 05/07/21 Omeprazole 40 mg PO HS 08/12/17 05/07/21 Montelukast [Singulair] 10 mg PO DAILY@1500 11/17/18 05/07/21 FLUoxetine HCL [PROzac] 20 mg PO DAILY@1500 01/12/19 05/07/21 Levothyroxine Sodium [Synthroid] 25 mcg PO Q48H 01/12/19 05/07/21 Ferrous Sulfate [Feosol] 325 mg PO DAILY@1500 06/25/19 05/07/21 Loratadine [Claritin] 10 mg PO DAILY@1500 07/14/19 05/07/21 Albuterol Sulfate [Albuterol 1 - 2 puff PO RT-Q6H PRN 05/07/21 05/07/21 Sulfate Hfa] Fluticasone Propionate [Flovent 2 puff INHALATION RT-BID 05/07/21 05/07/21 Hfa 220 mcg] Norethindrone-E.estradiol-Iron 1 tab PO DAILY@1500 05/07/21 05/07/21 [Aurovela 24 Fe 1 mg-20 Mcg Tab] Ondansetron Odt [Zofran Odt] 4 - 8 mg PO BID PRN 05/07/21 05/07/21 Allergies Allergy/AdvReac Type Severity Reaction Status Date / Time benzonatate Allergy Rash/Hives Verified 06/03/21 07:26 [From Tessaljohn Sullivan] Milk Containing Products Allergy Unknown Verified 06/03/21 07:26 [Dairy] sulfamethoxazole Allergy Rash/Hives Verified 06/03/21 07:26 [From Bactrim] trimethoprim [From Bactrim] Allergy Rash/Hives Verified 06/03/21 07:26 dicyclomine [From Bentyl] AdvReac DIZZINESS Verified 06/03/21 08:22 ibuprofen [From Motrin] AdvReac KIDNEY PAIN Verified 06/03/21 07:26 metoclopramide [From Reglan] AdvReac ANXIETY Verified 06/03/21 07:26 Review of Systems ROS Statement: Those systems with pertinent positive or pertinent negative responses have been documented in the HPI. ROS Other: All systems not noted in ROS Statement are negative. Constitutional: Denies: fever Eyes: Denies: eye pain ENT: Denies: ear pain Respiratory: Denies: cough Cardiovascular: Denies: chest pain Endocrine: Denies: fatigue Gastrointestinal: Reports: as per HPI, nausea, vomiting, diarrhea Genitourinary: Denies: dysuria Musculoskeletal: Denies: back pain Skin: Denies: rash Neurological: Denies: weakness Past Medical History Past Medical History: Asthma, Diabetes Mellitus, GERD/Reflux, Thyroid Disorder Additional Past Medical History / Comment(s): anemia History of Any Multi-Drug Resistant Organisms: None Reported Past Surgical History: Adenoidectomy Additional Past Surgical History / Comment(s): Eye surgery Past Psychological History: Anxiety, Depression Smoking Status: Former smoker Past Alcohol Use History: Occasional Past Drug Use History: Marijuana General Exam Limitations: no limitations General appearance: alert, in no apparent distress Head exam: Present: normocephalic Eye exam: Present: normal appearance Neck exam: Present: normal inspection Respiratory exam: Present: normal lung sounds bilaterally Cardiovascular Exam: Present: regular rate, normal rhythm GI/Abdominal exam: Present: soft, tenderness (Mild epigastric), normal bowel sounds. Absent: distended, guarding, rebound, rigid, pulsatile mass Extremities exam: Present: pedal edema (Trace bilateral which patient states is chronic). Absent: calf tenderness Neurological exam: Present: alert Psychiatric exam: Present: normal affect, normal mood Skin exam: Present: normal color Course Vital Signs 06/03/21 06/03/21 07:23 08:41 Temperature 98.1 F Pulse Rate 89 74 Respiratory 18 19 Rate Blood Pressure 147/92 O2 Sat by Pulse 100 98 Oximetry Medical Decision Making - Medical Decision Making Patient reevaluated and resting completely clean up in bed. Patient is tolerating ice chips. Patient does have omeprazole and Zofran at home. - Lab Data Result diagrams: 06/03/21 08:06 06/03/21 08:06 Lab Results 06/03/21 06/03/21 06/03/21 Range/Units 08:06 08:06 08:06 WBC 9.9 (3.8-10.6) k/uL RBC 5.05 (3.80-5.40) m/uL Hgb 15.1 (11.4-16.0) gm/dL Hct 43.6 (34.0-46.0) % MCV 86.3 (80.0-100.0) fL MCH 29.8 (25.0-35.0) pg MCHC 34.5 (31.0-37.0) g/dL RDW 13.3 (11.5-15.5) % Plt Count 339 (150-450) k/uL MPV 7.6 Neutrophils % 72 % Lymphocytes % 19 % Monocytes % 4 % Eosinophils % 3 % Basophils % 1 % Neutrophils # 7.1 (1.3-7.7) k/uL Lymphocytes # 1.9 (1.0-4.8) k/uL Monocytes # 0.4 (0-1.0) k/uL Eosinophils # 0.3 (0-0.7) k/uL Basophils # 0.1 (0-0.2) k/uL Sodium 140 (137-145) mmol/L Potassium 4.2 (3.5-5.1) mmol/L Chloride 106 (98-107) mmol/L Carbon Dioxide 25 (22-30) mmol/L Anion Gap 9 mmol/L BUN 9 (7-17) mg/dL Creatinine 0.54 (0.52-1.04) mg/dL Est GFR (CKD-EPI)AfAm >90 (>60 ml/min/1.73 sqM) Est GFR (CKD-EPI)NonAf >90 (>60 ml/min/1.73 sqM) Glucose 181 H (74-99) mg/dL Calcium 9.5 (8.4-10.2) mg/dL Total Bilirubin 0.5 (0.2-1.3) mg/dL AST 47 H (14-36) U/L ALT 41 H (4-34) U/L Alkaline Phosphatase 51 (38-126) U/L Total Protein 7.0 (6.3-8.2) g/dL Albumin 3.8 (3.5-5.0) g/dL Amylase 47 (30-110) U/L Lipase 128 (23-300) U/L Urine Color Light Yellow Urine Appearance Clear (Clear) Urine pH 6.0 (5.0-8.0) Ur Specific [place] 1.009 (1.001-1.035) Urine Protein Negative (Negative) Urine Glucose (UA) Negative (Negative) Urine Ketones Negative (Negative) Urine Blood Negative (Negative) Urine Nitrite Negative (Negative) Urine Bilirubin Negative (Negative) Urine Urobilinogen <2.0 (<2.0) mg/dL Ur Leukocyte Esterase Negative (Negative) - Radiology Data Radiology results: image reviewed (Abdominal x-ray reveals unremarkable abdomen) Disposition Clinical Impression: Vomiting Disposition: HOME SELF-CARE Condition: Stable Instructions (If sedation given, give patient instructions): Acute Nausea and Vomiting (ED) Additional Instructions: Please do follow-up to primary care physician in the next couple days for recheck. Return for not tolerating fluids, pain, worsening or changing symptoms or other concerns. Is patient prescribed a controlled substance at d/c from ED?: No Referrals: Raven Back MD [Primary Care Provider] - 1-2 days Time of Disposition: 10:23
[2021-06-03 08:25] LABS: Basophils # (A) 0.1 k/uL (0-0.2); Basophils % (A) 1 %; Eosinophils # (A) 0.3 k/uL (0-0.7); Eosinophils % (A) 3 %; HCT 43.6 % (34.0-46.0); HGB 15.1 gm/dL (11.4-16.0); Lymphocytes # (A) 1.9 k/uL (1.0-4.8); Lymphocytes % (A) 19 %; MCH 29.8 pg (25.0-35.0); MCHC 34.5 g/dL (31.0-37.0); MCV 86.3 fL (80.0-100.0); Mean Platelet Volume 7.6; Monocytes # (A) 0.4 k/uL (0-1.0); Monocytes % (A) 4 %; Neutrophils # (A) 7.1 k/uL (1.3-7.7); Neutrophils % (A) 72 %; Platelet Count 339 k/uL (150-450); RBC 5.05 m/uL (3.80-5.40); RDW 13.3 % (11.5-15.5); WBC 9.9 k/uL (3.8-10.6)
[2021-06-03 08:35] LABS: ALT 41 U/L (4-34); AST 47 U/L (14-36); African American GFR (CKD) >90 (>60 ml/min/1.73 sqM); Albumin 3.8 g/dL (3.5-5.0); Alkaline Phosphatase 51 U/L (38-126); Amylase 47 U/L (30-110); Anion Gap 9 mmol/L; Blood Urea Nitrogen 9 mg/dL (7-17); Calcium 9.5 mg/dL (8.4-10.2); Carbon Dioxide 25 mmol/L (22-30); Chloride 106 mmol/L (98-107); Glucose 181 mg/dL (74-99); Lipase 128 U/L (23-300); Non-African American GFR(CKD) >90 (>60 ml/min/1.73 sqM); Potassium 4.2 mmol/L (3.5-5.1); Sodium 140 mmol/L (137-145); Total Bilirubin 0.5 mg/dL (0.2-1.3)
[2021-06-03 08:36] LABS: Appearance,Urine Clear (Clear); Bilirubin,Urine Negative (Negative); Blood,Urine Negative (Negative); Color,Urine Light Yellow; Glucose,Urine (UA) Negative (Negative); Ketones,Urine Negative (Negative); Leukocyte Esterase,Urine Negative (Negative); Nitrite,Urine Negative (Negative); Protein,Urine Negative (Negative); Specific Gravity,Urine 1.009 (1.001-1.035); Urobilinogen,Urine <2.0 mg/dL (<2.0)
--- NOTE | 2021-06-03 08:41 | XR ---
EXAMINATION TYPE: XR KUB DATE OF EXAM: 06/03/2021 COMPARISON: 08/27/2019 INDICATION: Abdomen pain TECHNIQUE: Single view abdomen upright view FINDINGS: There is a normal bowel gas pattern. No free air is under the diaphragm. No suspicious differential a ir-fluid levels are present. Psoas margins are normal. No organomegaly is present. No mass effect is evident. IMPRESSION: 1. Unremarkable Abdomen
[2021-06-03 10:29] VITALS: BP 138/90; PULSE 60; RESP 17
== END 2021-06-03 10:29 | disposition home or self-care (01) ==
LOC: EC 07:23
DX: R11.10 Vomiting, unspecified (principal); E11.9 Type 2 diabetes mellitus without complications; F32.9 Major depressive disorder, single episode, unspecified; J45.909 Unspecified asthma, uncomplicated; K21.9 Gastro-esophageal reflux disease without esophagitis; Z87.891 Personal history of nicotine dependence; E07.9 Disorder of thyroid, unspecified
CPT/HCPCS: 36415; 80053; 82150; 83690; 85025; 81003; 74018; 99284; 96374; 96375; 96376; 96361; J2405

== ENCOUNTER 2021-06-25 10:48 | Emergency (ER) | payer OTHER ==
[2021-06-25 11:07] VITALS: BP 134/76; PULSE 80; RESP 18; TEMP 98
[2021-06-25] MEDS ORDERED: PROPARACAINE 0.5% OPHTH DROPS 15 ML BTL LEFT EYE STA (11:30)
[2021-06-25] MEDS ORDERED: FLUORESCEIN STRIPS 1 MG STRIP LEFT EYE STA (11:31)
[2021-06-25] MEDS ORDERED: ACETAMINOPHEN TAB 500 MG TAB PO STA (11:56)
[2021-06-25] MEDS ORDERED: ERYTHROMYCIN 5 MG/GM OPHTH OINT 1 GM TUBE LEFT EYE STA (12:55)
--- NOTE | 2021-06-25 13:20 | ED ---
General Adult HPI - General Chief complaint: Eye Problems Stated complaint: [place] eye Time Seen by Provider: 06/25/21 11:30 Source: patient Mode of arrival: ambulatory Limitations: no limitations - History of Present Illness Initial comments: 26-year-old female presents to the emergency room for a chief complaint of left eye irritation. Patient reports 3 days ago she woke up with pain in her left eye. States she thinks she had an eyelash in it and scratched her eye. Patient states it is still irritated. She denies visual changes. Today there was some crustiness on her eyelashes when she woke up and was concerned she could've a pink eye. Patient does not wear contacts.Patient has no other complaints at this time including shortness of breath, chest pain, abdominal pain, nausea or vomiting, headache, or visual changes. - Related Data Home Medications Medication Instructions Recorded Confirmed Levothyroxine Sodium [Synthroid] 200 mcg PO DAILY@1500 08/12/17 05/07/21 Omeprazole 40 mg PO HS 08/12/17 05/07/21 Montelukast [Singulair] 10 mg PO DAILY@1500 11/17/18 05/07/21 FLUoxetine HCL [PROzac] 20 mg PO DAILY@1500 01/12/19 05/07/21 Levothyroxine Sodium [Synthroid] 25 mcg PO Q48H 01/12/19 05/07/21 Ferrous Sulfate [Feosol] 325 mg PO DAILY@1500 06/25/19 05/07/21 Loratadine [Claritin] 10 mg PO DAILY@1500 07/14/19 05/07/21 Albuterol Sulfate [Albuterol 1 - 2 puff PO RT-Q6H PRN 05/07/21 05/07/21 Sulfate Hfa] Fluticasone Propionate [Flovent 2 puff INHALATION RT-BID 05/07/21 05/07/21 Hfa 220 mcg] Norethindrone-E.estradiol-Iron 1 tab PO DAILY@1500 05/07/21 05/07/21 [Aurovela 24 Fe 1 mg-20 Mcg Tab] Ondansetron Odt [Zofran Odt] 4 - 8 mg PO BID PRN 05/07/21 05/07/21 Previous Rx's Medication Instructions Recorded Erythromycin Ophth Oint [Romycin 1 applic LEFT EYE QID 7 Days #1 gm 06/25/21 Ophth Oint] Allergies Allergy/AdvReac Type Severity Reaction Status Date / Time benzonatate Allergy Rash/Hives Verified 06/25/21 11:03 [From Tessalon Perles] Milk Containing Products Allergy Unknown Verified 06/25/21 11:03 [Dairy] sulfamethoxazole Allergy Rash/Hives Verified 06/25/21 11:03 [From Bactrim] trimethoprim [From Bactrim] Allergy Rash/Hives Verified 06/25/21 11:03 dicyclomine [From Bentyl] AdvReac DIZZINESS Verified 06/25/21 11:03 ibuprofen [From Motrin] AdvReac KIDNEY PAIN Verified 06/25/21 11:03 metoclopramide [From Reglan] AdvReac ANXIETY Verified 06/25/21 11:03 Review of Systems ROS Statement: Those systems with pertinent positive or pertinent negative responses have been documented in the HPI. ROS Other: All systems not noted in ROS Statement are negative. Past Medical History Past Medical History: Asthma, Diabetes Mellitus, GERD/Reflux, Thyroid Disorder Additional Past Medical History / Comment(s): anemia History of Any Multi-Drug Resistant Organisms: None Reported Past Surgical History: Adenoidectomy Additional Past Surgical History / Comment(s): Eye surgery Past Psychological History: Anxiety, Depression Smoking Status: Former smoker Past Alcohol Use History: Occasional, Rare Past Drug Use History: Marijuana General Exam Limitations: no limitations General appearance: alert, in no apparent distress Head exam: Present: atraumatic, normocephalic, normal inspection Eye exam: Present: PERRL, EOMI, conjunctival injection (Slight erythema of the conjunctiva of the left eye). Absent: scleral icterus, periorbital swelling Expanded Eyelids: Normal Inspection: Bilateral Pupils: Regular, Round: Bilateral Sclera/Conjunctival: Normal Inspection: Right, Injection: Left Visual acuity (R) = 20/: 40 Visual acuity (L) = 20/: 50 With correction: Yes ENT exam: Present: normal exam, mucous membranes moist Neck exam: Present: normal inspection, full ROM Respiratory exam: Present: normal lung sounds bilaterally. Absent: respiratory distress, wheezes, rales, rhonchi, stridor Cardiovascular Exam: Present: regular rate, normal rhythm, normal heart sounds. Absent: systolic murmur, diastolic murmur, rubs, gallop, clicks Course Vital Signs 06/25/21 11:03 Temperature 98 F Pulse Rate 80 Respiratory 18 Rate Blood Pressure 134/76 O2 Sat by Pulse 98 Oximetry Medical Decision Making - Medical Decision Making The eye was stained with fluorescein stain and visualized with Wood's lamp. There is a small abrasion noted at about 6:00. Patient treated with erythromycin ointment. Visual acuity 20/50 OS, 20/40 OD, 20/40 both eyes. No foreign bodies noted in the eye. Patient does not wear contacts. Patient is up-to-date on tetanus as of 4 years ago. 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 Recommend she return here for any worsening symptoms. Disposition Clinical Impression: Corneal abrasion Disposition: HOME SELF-CARE Condition: Good Instructions (If sedation given, give patient instructions): Corneal Abrasion (ED) Additional Instructions: Please use antibiotic ointment as directed. Follow-up with ophthalmology. If you're having worsening symptoms or cannot get an appointment return to the emergency room. Prescriptions: Erythromycin Ophth Oint [Romycin Ophth Oint] 1 applic LEFT EYE QID 7 Days #1 gm Is patient prescribed a controlled substance at d/c from ED?: No Referrals: Raven Back MD [Primary Care Provider] - 1-2 days Chun Davis MD [STAFF PHYSICIAN] - 1-2 days Time of Disposition: 13:19
== END 2021-06-25 13:25 | disposition home or self-care (01) ==
LOC: EC 10:48
DX: S05.02XA Injury of conjunctiva and corneal abrasion without foreign body, left eye, initial encounter (principal); E11.9 Type 2 diabetes mellitus without complications; J45.909 Unspecified asthma, uncomplicated; K21.9 Gastro-esophageal reflux disease without esophagitis; F41.9 Anxiety disorder, unspecified; F32.9 Major depressive disorder, single episode, unspecified; F12.90 Cannabis use, unspecified, uncomplicated; Z87.891 Personal history of nicotine dependence; Z79.51 Long term (current) use of inhaled steroids; Z88.1 Allergy status to other antibiotic agents; Z88.2 Allergy status to sulfonamides; Z88.6 Allergy status to analgesic agent; Z88.8 Allergy status to other drugs, medicaments and biological substances; X58.XXXA Exposure to other specified factors, initial encounter
CPT/HCPCS: 99283

== ENCOUNTER 2021-07-08 07:58 | Emergency (ER) | payer OTHER ==
[2021-07-08] MEDS ORDERED: SODIUM CHLORIDE 0.9% 1,000 ML IV STA (08:32)
[2021-07-08] MEDS ORDERED: ONDANSETRON 4 MG/2 ML VIAL IVP STA ×2 (08:32→09:36)
--- NOTE | 2021-07-08 08:39 | ED ---
Nausea/Vomiting/Diarrhea HPI - General Chief complaint: Nausea/Vomiting/Diarrhea Stated complaint: Nausea/Vomiting Time Seen by Provider: 07/08/21 08:10 Source: patient Mode of arrival: ambulatory Limitations: no limitations - History of Present Illness Initial comments: Patient is a 26-year-old female presenting to the emergency Department with complaints of nausea and vomiting that started about 6 AM this morning. Patient states she had a hard time sleeping last night because she felt nauseous and very uncomfortable. The vomiting started around 6 AM, she did have some diarrhea that started about 1-2 hours ago as well. She states she continues to feel nauseous and came to the ER for evaluation. She does admit to some abdominal cramping but nothing severe, she is also about to start her period so the cramping is not abnormal for her. She denies any fevers or chills. She states she has been trying to eat stepfather referred since they do not have power and thinks she might of 8 some bad lunchmeat. She has been here several times in the past for same complaint. She does have a scheduled colonoscopy and a couple weeks. She denies being . She has no further complaints. Her vitals are stable upon arrival. - Related Data Home Medications Medication Instructions Recorded Confirmed Levothyroxine Sodium [Synthroid] 200 mcg PO DAILY@1500 08/12/17 05/07/21 Omeprazole 40 mg PO HS 08/12/17 05/07/21 Montelukast [Singulair] 10 mg PO DAILY@1500 11/17/18 05/07/21 FLUoxetine HCL [PROzac] 20 mg PO DAILY@1500 01/12/19 05/07/21 Levothyroxine Sodium [Synthroid] 25 mcg PO Q48H 01/12/19 05/07/21 Ferrous Sulfate [Feosol] 325 mg PO DAILY@1500 06/25/19 05/07/21 Loratadine [Claritin] 10 mg PO DAILY@1500 07/14/19 05/07/21 Albuterol Sulfate [Albuterol 1 - 2 puff PO RT-Q6H PRN 05/07/21 05/07/21 Sulfate Hfa] Fluticasone Propionate [Flovent 2 puff INHALATION RT-BID 05/07/21 05/07/21 Hfa 220 mcg] Norethindrone-E.estradiol-Iron 1 tab PO DAILY@1500 05/07/21 05/07/21 [Aurovela 24 Fe 1 mg-20 Mcg Tab] Ondansetron Odt [Zofran Odt] 4 - 8 mg PO BID PRN 05/07/21 05/07/21 Previous Rx's Medication Instructions Recorded Erythromycin Ophth Oint [Romycin 1 applic LEFT EYE QID 7 Days #1 gm 06/25/21 Ophth Oint] Allergies Allergy/AdvReac Type Severity Reaction Status Date / Time benzonatate Allergy Rash/Hives Verified 07/08/21 08:06 [From Tessalon Perles] Milk Containing Products Allergy Unknown Verified 07/08/21 08:06 [Dairy] sulfamethoxazole Allergy Rash/Hives Verified 07/08/21 08:06 [From Bactrim] trimethoprim [From Bactrim] Allergy Rash/Hives Verified 07/08/21 08:06 dicyclomine [From Bentyl] AdvReac DIZZINESS Verified 07/08/21 08:06 ibuprofen [From Motrin] AdvReac KIDNEY PAIN Verified 07/08/21 08:06 metoclopramide [From Reglan] AdvReac ANXIETY Verified 07/08/21 08:06 Review of Systems ROS Statement: Those systems with pertinent positive or pertinent negative responses have been documented in the HPI. ROS Other: All systems not noted in ROS Statement are negative. Past Medical History Past Medical History: Asthma, Diabetes Mellitus, GERD/Reflux, Thyroid Disorder Additional Past Medical History / Comment(s): anemia History of Any Multi-Drug Resistant Organisms: None Reported Past Surgical History: Adenoidectomy Additional Past Surgical History / Comment(s): Eye surgery Past Psychological History: Anxiety, Depression Smoking Status: Former smoker Past Alcohol Use History: Occasional, Rare Past Drug Use History: Marijuana General Exam - General Exam Comments Initial Comments: GENERAL: Patient is well-developed and well-nourished. Patient is nontoxic and in no acute distress. HEAD: Atraumatic, normocephalic. EYES: Pupils equal round and reactive to light, extraocular movements intact, sclera anicteric, conjunctiva are normal. Eyelids were unremarkable. ENT: Nares patent, oropharynx clear without exudates. Moist mucous membranes. NECK: Normal range of motion, supple without lymphadenopathy or JVD. LUNGS: Unlabored respirations. Breath sounds clear to auscultation bilaterally and equal. No wheezes rales or rhonchi. HEART: Regular rate and rhythm without murmurs, rubs or gallops. ABDOMEN: Soft, nontender, normoactive bowel sounds. No guarding, no rebound. No masses appreciated. : Deferred MUSCULOSKELETAL: Normal extremities with adequate strength and normal range of motion, no pitting or edema. No clubbing or cyanosis. NEUROLOGICAL: Patient is alert and oriented x 3. SKIN: Warm, Dry, normal turgor, no rashes or lesions noted. Limitations: no limitations Course Vital Signs 07/08/21 07/08/21 08:03 10:06 Temperature 98.0 F Pulse Rate 94 88 Respiratory 19 Rate Blood Pressure 90/56 96/77 O2 Sat by Pulse 97 99 Oximetry Medical Decision Making - Medical Decision Making Patient is a 26-year-old female here for nausea and vomiting yesterday or this morning. Also experiencing some diarrhea. Her vitals are stable,Abdominal pain, some mild cramping. Within normal limits, she is not . Patient is given IV fluids and Zofran, reports improvement in her symptoms. Patient is stable for discharge. She states she has Zofran at home for any additional nausea. Return parameters were discussed with parents verbalized understanding. Case discussed with Dr. Ferguson. - Lab Data Result diagrams: 07/08/21 08:47 07/08/21 08:47 Lab Results 07/08/21 07/08/21 07/08/21 Range/Units 08:47 08:47 08:47 WBC 12.1 H (3.8-10.6) k/uL RBC 5.12 (3.80-5.40) m/uL Hgb 15.0 (11.4-16.0) gm/dL Hct 44.4 (34.0-46.0) % MCV 86.6 (80.0-100.0) fL MCH 29.3 (25.0-35.0) pg MCHC 33.8 (31.0-37.0) g/dL RDW 13.5 (11.5-15.5) % Plt Count 345 (150-450) k/uL MPV 8.2 Neutrophils % 69 % Lymphocytes % 20 % Monocytes % 5 % Eosinophils % 5 % Basophils % 1 % Neutrophils # 8.4 H (1.3-7.7) k/uL Lymphocytes # 2.4 (1.0-4.8) k/uL Monocytes # 0.6 (0-1.0) k/uL Eosinophils # 0.6 (0-0.7) k/uL Basophils # 0.1 (0-0.2) k/uL Sodium (137-145) mmol/L Potassium (3.5-5.1) mmol/L Chloride (98-107) mmol/L Carbon Dioxide (22-30) mmol/L Anion Gap mmol/L BUN (7-17) mg/dL Creatinine (0.52-1.04) mg/dL Est GFR (CKD-EPI)AfAm (>60 ml/min/1.73 sqM) Est GFR (CKD-EPI)NonAf (>60 ml/min/1.73 sqM) Glucose (74-99) mg/dL Calcium (8.4-10.2) mg/dL Total Bilirubin (0.2-1.3) mg/dL AST (14-36) U/L ALT (4-34) U/L Alkaline Phosphatase (38-126) U/L Total Protein (6.3-8.2) g/dL Albumin (3.5-5.0) g/dL Urine Color Yellow Urine Appearance Cloudy H (Clear) Urine pH 5.5 (5.0-8.0) Ur Specific Lacey 1.015 (1.001-1.035) Urine Protein Negative (Negative) Urine Glucose (UA) Negative (Negative) Urine Ketones Negative (Negative) Urine Blood Small H (Negative) Urine Nitrite Negative (Negative) Urine Bilirubin Negative (Negative) Urine Urobilinogen <2.0 (<2.0) mg/dL Ur Leukocyte Esterase Trace H (Negative) Urine RBC 1 (0-5) /hpf Urine WBC 3 (0-5) /hpf Ur Squamous Epith Cells 3 (0-4) /hpf Urine Bacteria Few H (None) /hpf Urine Mucus Rare H (None) /hpf Urine HCG, Qual Not Detected (Not Detectd) 07/08/21 Range/Units 08:47 WBC (3.8-10.6) k/uL RBC (3.80-5.40) m/uL Hgb (11.4-16.0) gm/dL Hct (34.0-46.0) % MCV (80.0-100.0) fL MCH (25.0-35.0) pg MCHC (31.0-37.0) g/dL RDW (11.5-15.5) % Plt Count (150-450) k/uL MPV Neutrophils % % Lymphocytes % % Monocytes % % Eosinophils % % Basophils % % Neutrophils # (1.3-7.7) k/uL Lymphocytes # (1.0-4.8) k/uL Monocytes # (0-1.0) k/uL Eosinophils # (0-0.7) k/uL Basophils # (0-0.2) k/uL Sodium 139 (137-145) mmol/L Potassium 3.7 (3.5-5.1) mmol/L Chloride 106 (98-107) mmol/L Carbon Dioxide 23 (22-30) mmol/L Anion Gap 10 mmol/L BUN 9 (7-17) mg/dL Creatinine 0.57 (0.52-1.04) mg/dL Est GFR (CKD-EPI)AfAm >90 (>60 ml/min/1.73 sqM) Est GFR (CKD-EPI)NonAf >90 (>60 ml/min/1.73 sqM) Glucose 163 H (74-99) mg/dL Calcium 9.1 (8.4-10.2) mg/dL Total Bilirubin 0.4 (0.2-1.3) mg/dL AST 46 H (14-36) U/L ALT 42 H (4-34) U/L Alkaline Phosphatase 58 (38-126) U/L Total Protein 7.1 (6.3-8.2) g/dL Albumin 3.9 (3.5-5.0) g/dL Urine Color Urine Appearance (Clear) Urine pH (5.0-8.0) Ur Specific Lacey (1.001-1.035) Urine Protein (Negative) Urine Glucose (UA) (Negative) Urine Ketones (Negative) Urine Blood (Negative) Urine Nitrite (Negative) Urine Bilirubin (Negative) Urine Urobilinogen (<2.0) mg/dL Ur Leukocyte Esterase (Negative) Urine RBC (0-5) /hpf Urine WBC (0-5) /hpf Ur Squamous Epith Cells (0-4) /hpf Urine Bacteria (None) /hpf Urine Mucus (None) /hpf Urine HCG, Qual (Not Detectd) Disposition Clinical Impression: Nausea vomiting and diarrhea Disposition: HOME SELF-CARE Condition: Stable Instructions (If sedation given, give patient instructions): Acute Nausea and Vomiting (ED) Additional Instructions: Please return to the Emergency Department if symptoms worsen or any other concerns. May take additional Zofran every 8 hours. Follow-up with your primary care. Is patient prescribed a controlled substance at d/c from ED?: No Referrals: Raven Back MD [Primary Care Provider] - 1-2 days Time of Disposition: 11:38
[2021-07-08 09:06] LABS: Basophils # (A) 0.1 k/uL (0-0.2); Basophils % (A) 1 %; Eosinophils # (A) 0.6 k/uL (0-0.7); Eosinophils % (A) 5 %; HCT 44.4 % (34.0-46.0); Lymphocytes # (A) 2.4 k/uL (1.0-4.8); Lymphocytes % (A) 20 %; MCH 29.3 pg (25.0-35.0); MCHC 33.8 g/dL (31.0-37.0); MCV 86.6 fL (80.0-100.0); Mean Platelet Volume 8.2; Monocytes # (A) 0.6 k/uL (0-1.0); Monocytes % (A) 5 %; Neutrophils # (A) 8.4 k/uL (1.3-7.7); Neutrophils % (A) 69 %; Platelet Count 345 k/uL (150-450); RBC 5.12 m/uL (3.80-5.40); RDW 13.5 % (11.5-15.5); WBC 12.1 k/uL (3.8-10.6)
[2021-07-08 09:08] LABS: Appearance,Urine Cloudy (Clear); Bacteria,Urine Few /hpf; Bilirubin,Urine Negative (Negative); Blood,Urine Small (Negative); Color,Urine Yellow; Glucose,Urine (UA) Negative (Negative); Ketones,Urine Negative (Negative); Leukocyte Esterase,Urine Trace (Negative); Mucus,Urine Rare /hpf; Nitrite,Urine Negative (Negative); PH, Urine 5.5 (5.0-8.0); Protein,Urine Negative (Negative); RBC,Urine 1 /hpf (0-5); Specific Gravity,Urine 1.015 (1.001-1.035); Squamous Epithelial Cell,Urine 3 /hpf (0-4); Urobilinogen,Urine <2.0 mg/dL (<2.0); WBC,Urine 3 /hpf (0-5)
[2021-07-08 09:21] LABS: ALT 42 U/L (4-34); AST 46 U/L (14-36); African American GFR (CKD) >90 (>60 ml/min/1.73 sqM); Albumin 3.9 g/dL (3.5-5.0); Alkaline Phosphatase 58 U/L (38-126); Anion Gap 10 mmol/L; Blood Urea Nitrogen 9 mg/dL (7-17); Calcium 9.1 mg/dL (8.4-10.2); Carbon Dioxide 23 mmol/L (22-30); Chloride 106 mmol/L (98-107); Glucose 163 mg/dL (74-99); Non-African American GFR(CKD) >90 (>60 ml/min/1.73 sqM); Potassium 3.7 mmol/L (3.5-5.1); Sodium 139 mmol/L (137-145); Total Bilirubin 0.4 mg/dL (0.2-1.3); Total Protein 7.1 g/dL (6.3-8.2)
[2021-07-08 11:53] VITALS: BP 140/88; PULSE 86; RESP 18; TEMP 97.9
== END 2021-07-08 11:50 | disposition home or self-care (01) ==
LOC: EC 07:58
DX: R11.2 Nausea with vomiting, unspecified (principal); R19.7 Diarrhea, unspecified; J45.909 Unspecified asthma, uncomplicated; E11.9 Type 2 diabetes mellitus without complications; K21.9 Gastro-esophageal reflux disease without esophagitis; E07.9 Disorder of thyroid, unspecified; F41.9 Anxiety disorder, unspecified; F32.9 Major depressive disorder, single episode, unspecified; F12.90 Cannabis use, unspecified, uncomplicated; Z88.2 Allergy status to sulfonamides; Z91.011 Allergy to milk products; Z88.6 Allergy status to analgesic agent; Z88.1 Allergy status to other antibiotic agents; Z90.89 Acquired absence of other organs; Z87.891 Personal history of nicotine dependence
CPT/HCPCS: 99284; 96374; 96376; 96361; 36415; 80053; 85025; 81001; 81025; J2405

== ENCOUNTER → 2022-07-30 | Outpatient (CLI) | payer OTHER ==
--- NOTE | 2022-07-30 14:42 | US ---
EXAMINATION TYPE: US thyroid st tissue head/neck DATE OF EXAM: 07/30/2022 COMPARISON: NONE CLINICAL HISTORY: E03.9 HYPOTHYROIDISM. GLAND SIZE: Right Lobe: 3.7 x 1.0 x 1.1 cm Overall Parenchyma: heterogenous Left Lobe: 2.4 x 0.6 x 0.9 cm Overall Parenchyma: heterogeneous Isthmus Thickness: 0.2 cm NODULES RIGHT: # of nodules measured on right: 1 1. 0.6 X 0.6 x 0.5 cm, lower medial, solid or almost completely solid, hyperechoic nodule, which is wider than tall, with smooth margins, without echogenic foci. Prior size: no previous LEFT: # of nodules measured on left: 0 ISTHMUS: # of nodules measured in the isthmus: 0 Bilateral neck scanned, no evidence of lymphadenopathy. IMPRESSION: Nonspecific thyroid glandular heterogeneity. Subcentimeter nodule right thyroid lobe.
== END | disposition home or self-care (01) ==
LOC: RADUSWWP 14:07
PROVIDERS: ATTEND Family Medicine
DX: E03.9 Hypothyroidism, unspecified (principal)
CPT/HCPCS: 76536

== ENCOUNTER 2022-08-11 09:33 | Emergency (ER) | payer OTHER ==
--- NOTE | 2022-08-11 09:47 | ED ---
General Adult HPI - General Chief complaint: Upper Respiratory Infection Stated complaint: neck swollen & throat pain Time Seen by Provider: 08/11/22 09:40 Source: patient, RN notes reviewed, old records reviewed Mode of arrival: ambulatory Limitations: no limitations - History of Present Illness Initial comments: This is a 27-year-old female presents emergency Department states that her throat started to become sore on Friday has continued to get worse until today. Patient states it hurts to swallow. Patient denies any difficulty breathing or shortness of breath. Patient's chest pain or palpitation. Patient has any fevers or chills. Patient denies headache patient with numbness weakness. Patient states she's concerned about code because she does live with her children. Patient feels that might be some swollen lymph nodes and her neck. - Related Data Home Medications Medication Instructions Recorded Confirmed Levothyroxine Sodium [Synthroid] 200 mcg PO DAILY@1500 08/12/17 05/07/21 Omeprazole 40 mg PO HS 08/12/17 05/07/21 Montelukast [Singulair] 10 mg PO DAILY@1500 11/17/18 05/07/21 FLUoxetine HCL [PROzac] 20 mg PO DAILY@1500 01/12/19 05/07/21 Levothyroxine Sodium [Synthroid] 25 mcg PO Q48H 01/12/19 05/07/21 Ferrous Sulfate [Feosol] 325 mg PO DAILY@1500 06/25/19 05/07/21 Loratadine [Claritin] 10 mg PO DAILY@1500 07/14/19 05/07/21 Albuterol Sulfate [Albuterol 1 - 2 puff PO RT-Q6H PRN 05/07/21 05/07/21 Sulfate Hfa] Fluticasone Propionate [Flovent 2 puff INHALATION RT-BID 05/07/21 05/07/21 Hfa 220 mcg] Ondansetron Odt [Zofran Odt] 4 - 8 mg PO BID PRN 05/07/21 05/07/21 norethindrone-e.estradioL-iron 1 tab PO DAILY@1500 05/07/21 05/07/21 [Aurovela 24 Fe 1 mg-20 Mcg Tab] Previous Rx's Medication Instructions Recorded Erythromycin Ophth Oint [Romycin 1 applic LEFT EYE QID 7 Days #1 gm 06/25/21 Ophth Oint] Amoxicillin 500 mg PO Q8H #30 capsule 08/11/22 Allergies Allergy/AdvReac Type Severity Reaction Status Date / Time benzonatate Allergy Rash/Hives Verified 08/11/22 09:37 [From Tessalon Perles] Milk Containing Products Allergy Unknown Verified 08/11/22 09:37 [Dairy] sulfamethoxazole Allergy Rash/Hives Verified 08/11/22 09:37 [From Bactrim] trimethoprim [From Bactrim] Allergy Rash/Hives Verified 08/11/22 09:37 dicyclomine [From Bentyl] AdvReac DIZZINESS Verified 08/11/22 09:37 ibuprofen [From Motrin] AdvReac KIDNEY PAIN Verified 08/11/22 09:37 metoclopramide [From Reglan] AdvReac ANXIETY Verified 08/11/22 09:37 Review of Systems ROS Statement: Those systems with pertinent positive or pertinent negative responses have been documented in the HPI. ROS Other: All systems not noted in ROS Statement are negative. Past Medical History Past Medical History: Asthma, Diabetes Mellitus, GERD/Reflux, Thyroid Disorder Additional Past Medical History / Comment(s): anemia History of Any Multi-Drug Resistant Organisms: None Reported Past Surgical History: Adenoidectomy Additional Past Surgical History / Comment(s): Eye surgery Past Psychological History: Anxiety, Depression Smoking Status: Former smoker Past Alcohol Use History: Occasional, Rare Past Drug Use History: Marijuana General Exam - General Exam Comments Initial Comments: GENERAL: Patient is well-developed and well-nourished. Patient is nontoxic and well- hydrated and is in no acute distress. ENT: Neck is soft and supple. Pharynx is mildly erythematous. There is no swelling no abscess formation Moist mucous membranes. Neck has full range of motion without eliciting any pain. EYES: The sclera were anicteric and conjunctiva were pink and moist. Extraocular movements were intact and pupils were equal round and reactive to light. Eyelids were unremarkable. PULMONARY: Unlabored respirations. Good breath sounds bilaterally. No audible rales rhonchi or wheezing was noted. CARDIOVASCULAR: There is a regular rate and rhythm without any murmurs gallops or rubs. SKIN: Skin is clear with no lesions or rashes and otherwise unremarkable. NEUROLOGIC: Patient is alert and oriented x3. Cranial nerves II through XII are grossly intact. Motor and sensory are also intact. Normal speech, volume and content. Symmetrical smile. MUSCULOSKELETAL: Normal extremities with adequate strength and full range of motion. LYMPHATICS: Cervical lymphadenopathy PSYCHIATRIC: Normal psychiatric evaluation. Limitations: no limitations Course Vital Signs 08/11/22 09:36 Temperature 97.8 F Pulse Rate 80 Respiratory 16 Rate Blood Pressure 146/93 O2 Sat by Pulse 98 Oximetry Medical Decision Making - Lab Data Lab Results 08/11/22 Range/Units 09:46 Coronavirus (PCR) Not Detected (Not Detectd) Disposition Clinical Impression: Pharyngitis Disposition: HOME SELF-CARE Condition: Good Instructions (If sedation given, give patient instructions): Pharyngitis (ED) Prescriptions: Amoxicillin 500 mg PO Q8H #30 capsule Is patient prescribed a controlled substance at d/c from ED?: No Referrals: Margaret Bradford MD [Primary Care Provider] - 1-2 days Time of Disposition: 10:31
[2022-08-11] MEDS ORDERED: AMOXICILLIN 500MG STARTER PACK 3 CAP BTL PO STA (10:37)
[2022-08-11 10:46] VITALS: BP 138/97; PULSE 84; RESP 18; TEMP 98
== END 2022-08-11 10:46 | disposition home or self-care (01) ==
LOC: EC 09:33
DX: J02.9 Acute pharyngitis, unspecified (principal); J45.909 Unspecified asthma, uncomplicated; E11.9 Type 2 diabetes mellitus without complications; K21.9 Gastro-esophageal reflux disease without esophagitis; E07.9 Disorder of thyroid, unspecified; F41.9 Anxiety disorder, unspecified; F32.A Depression, unspecified; Z87.891 Personal history of nicotine dependence; F12.90 Cannabis use, unspecified, uncomplicated; Z88.8 Allergy status to other drugs, medicaments and biological substances; Z91.011 Allergy to milk products; Z88.2 Allergy status to sulfonamides; Z88.3 Allergy status to other anti-infective agents; Z88.6 Allergy status to analgesic agent; Z79.890 Hormone replacement therapy; Z79.51 Long term (current) use of inhaled steroids; Z79.899 Other long term (current) drug therapy; Z20.822 Contact with and (suspected) exposure to COVID-19
CPT/HCPCS: 87635; 99284

== ENCOUNTER 2022-08-12 07:50 | Emergency (ER) | payer OTHER ==
[2022-08-12 07:55] VITALS: BP 129/85; PULSE 99; RESP 18; TEMP 98.2
--- NOTE | 2022-08-12 08:13 | ED ---
Eye Problem HPI - General Chief complaint: Eye Problems Stated complaint: revisit- poss pink eye Time Seen by Provider: 08/12/22 07:58 Source: patient, RN notes reviewed Mode of arrival: ambulatory Limitations: no limitations - History of Present Illness Initial comments: 19-year-old female presents emergency Department chief complaint of bilateral eye irritation, drainage and crusting. Patient states she was seen in emergency department yesterday for increasing congestion denies developed after. She has a visual changes denies any fevers or chills. Patient states her eyes are crusted shut in which she was washing around her eyes. - Related Data Home Medications Medication Instructions Recorded Confirmed Levothyroxine Sodium [Synthroid] 200 mcg PO DAILY@1500 08/12/17 05/07/21 Omeprazole 40 mg PO HS 08/12/17 05/07/21 Montelukast [Singulair] 10 mg PO DAILY@1500 11/17/18 05/07/21 FLUoxetine HCL [PROzac] 20 mg PO DAILY@1500 01/12/19 05/07/21 Levothyroxine Sodium [Synthroid] 25 mcg PO Q48H 01/12/19 05/07/21 Ferrous Sulfate [Feosol] 325 mg PO DAILY@1500 06/25/19 05/07/21 Loratadine [Claritin] 10 mg PO DAILY@1500 07/14/19 05/07/21 Albuterol Sulfate [Albuterol 1 - 2 puff PO RT-Q6H PRN 05/07/21 05/07/21 Sulfate Hfa] Fluticasone Propionate [Flovent 2 puff INHALATION RT-BID 05/07/21 05/07/21 Hfa 220 mcg] Ondansetron Odt [Zofran Odt] 4 - 8 mg PO BID PRN 05/07/21 05/07/21 norethindrone-e.estradioL-iron 1 tab PO DAILY@1500 05/07/21 05/07/21 [Aurovela 24 Fe 1 mg-20 Mcg Tab] Previous Rx's Medication Instructions Recorded Erythromycin Ophth Oint [Romycin 1 applic LEFT EYE QID 7 Days #1 gm 06/25/21 Ophth Oint] Amoxicillin 500 mg PO Q8H #30 capsule 08/11/22 Tobramycin 0.3% Ophth Soln [Tobrex 1 drop BOTH EYES Q4H #5 ml 08/12/22 0.3% Ophth Soln] Allergies Allergy/AdvReac Type Severity Reaction Status Date / Time benzonatate Allergy Rash/Hives Verified 08/12/22 07:55 [From Tessalon Perles] Milk Containing Products Allergy Unknown Verified 08/12/22 07:55 [Dairy] sulfamethoxazole Allergy Rash/Hives Verified 08/12/22 07:55 [From Bactrim] trimethoprim [From Bactrim] Allergy Rash/Hives Verified 08/12/22 07:55 dicyclomine [From Bentyl] AdvReac DIZZINESS Verified 08/12/22 07:55 ibuprofen [From Motrin] AdvReac KIDNEY PAIN Verified 08/12/22 07:55 metoclopramide [From Reglan] AdvReac ANXIETY Verified 08/12/22 07:55 Review of Systems ROS Statement: Those systems with pertinent positive or pertinent negative responses have been documented in the HPI. ROS Other: All systems not noted in ROS Statement are negative. Past Medical History Past Medical History: Asthma, Diabetes Mellitus, GERD/Reflux, Thyroid Disorder Additional Past Medical History / Comment(s): anemia History of Any Multi-Drug Resistant Organisms: None Reported Past Surgical History: Adenoidectomy Additional Past Surgical History / Comment(s): Eye surgery Past Psychological History: Anxiety, Depression Smoking Status: Former smoker Past Alcohol Use History: Occasional, Rare Past Drug Use History: Marijuana General Exam Limitations: no limitations General appearance: alert, in no apparent distress Head exam: Present: atraumatic, normocephalic, normal inspection Eye exam: Present: PERRL, EOMI, conjunctival injection. Absent: normal appearance, scleral icterus, periorbital swelling ENT exam: Present: normal exam, normal oropharynx, mucous membranes moist Neck exam: Present: normal inspection, full ROM. Absent: tenderness, meningismus, lymphadenopathy Respiratory exam: Present: normal lung sounds bilaterally. Absent: respiratory distress, wheezes, rales, rhonchi, stridor Cardiovascular Exam: Present: regular rate, normal rhythm, normal heart sounds. Absent: systolic murmur, diastolic murmur, rubs, gallop, clicks Course Vital Signs 08/12/22 07:51 Temperature 98.2 F Pulse Rate 99 Respiratory 18 Rate Blood Pressure 129/85 O2 Sat by Pulse 99 Oximetry Medical Decision Making - Medical Decision Making 19-year-old presented for bilateral eye her dictation patient has conjunctivitis was started on eyedrops were discussed with Mercedez watts with baby shampoo and return parameters. Patient agrees to plan. Disposition Clinical Impression: Bacterial conjunctivitis Disposition: HOME SELF-CARE Condition: Stable Instructions (If sedation given, give patient instructions): Conjunctivitis (ED) Additional Instructions: Please return to the Emergency Department if symptoms worsen or any other concerns. Prescriptions: Tobramycin 0.3% Ophth Soln [Tobrex 0.3% Ophth Soln] 1 drop BOTH EYES Q4H #5 ml Is patient prescribed a controlled substance at d/c from ED?: No Referrals: Margaret Bradford MD [Primary Care Provider] - 1-2 days Time of Disposition: 08:12
== END 2022-08-12 08:21 | disposition home or self-care (01) ==
LOC: EC 07:50
DX: H10.33 Unspecified acute conjunctivitis, bilateral (principal); J45.909 Unspecified asthma, uncomplicated; E11.9 Type 2 diabetes mellitus without complications; K21.9 Gastro-esophageal reflux disease without esophagitis; E07.9 Disorder of thyroid, unspecified; F41.9 Anxiety disorder, unspecified; F32.A Depression, unspecified; Z87.891 Personal history of nicotine dependence; Z88.8 Allergy status to other drugs, medicaments and biological substances; Z91.011 Allergy to milk products; Z88.2 Allergy status to sulfonamides; Z88.3 Allergy status to other anti-infective agents; Z88.6 Allergy status to analgesic agent; Z79.890 Hormone replacement therapy; Z79.51 Long term (current) use of inhaled steroids; Z79.899 Other long term (current) drug therapy
CPT/HCPCS: 99283

== ENCOUNTER 2022-11-21 10:05 | Emergency (ER) | payer OTHER ==
[2022-11-21 10:24] VITALS: RESP 18
--- NOTE | 2022-11-21 10:25 | ED ---
General Adult HPI - General Chief complaint: ENT Stated complaint: sore throat Source: RN notes reviewed - History of Present Illness Initial comments: 27 year old female presents to the emergency department with a chief complaint of a sore throat x 6 days. She has honey, tylenol and motrin, and increased fluids with no relief. She reports her coworker had strep throat about a week ago. She denies fever, chills, congestion, cough, chest pain, palpitations. She did not receive the influenza vaccine this year, but reports getting the COVID vaccine. She reports improvement yesterday, however today her sore throat is worse. - Related Data Home Medications Medication Instructions Recorded Confirmed Levothyroxine Sodium [Synthroid] 200 mcg PO DAILY@1500 08/12/17 05/07/21 Omeprazole 40 mg PO HS 08/12/17 05/07/21 Montelukast [Singulair] 10 mg PO DAILY@1500 11/17/18 05/07/21 FLUoxetine HCL [PROzac] 20 mg PO DAILY@1500 01/12/19 05/07/21 Levothyroxine Sodium [Synthroid] 25 mcg PO Q48H 01/12/19 05/07/21 Ferrous Sulfate [Feosol] 325 mg PO DAILY@1500 06/25/19 05/07/21 Loratadine [Claritin] 10 mg PO DAILY@1500 07/14/19 05/07/21 Albuterol Sulfate [Albuterol 1 - 2 puff PO RT-Q6H PRN 05/07/21 05/07/21 Sulfate Hfa] Fluticasone Propionate [Flovent 2 puff INHALATION RT-BID 05/07/21 05/07/21 Hfa 220 mcg] Ondansetron Odt [Zofran Odt] 4 - 8 mg PO BID PRN 05/07/21 05/07/21 norethindrone-e.estradioL-iron 1 tab PO DAILY@1500 05/07/21 05/07/21 [Aurovela 24 Fe 1 mg-20 Mcg Tab] Previous Rx's Medication Instructions Recorded Erythromycin Ophth Oint [Romycin 1 applic LEFT EYE QID 7 Days #1 gm 06/25/21 Ophth Oint] Amoxicillin 500 mg PO Q8H #30 capsule 08/11/22 Tobramycin 0.3% Ophth Soln [Tobrex 1 drop BOTH EYES Q4H #5 ml 08/12/22 0.3% Ophth Soln] Amoxicillin 500 mg PO Q12HR 10 Days #20 cap 11/21/22 Allergies Allergy/AdvReac Type Severity Reaction Status Date / Time benzonatate Allergy Rash/Hives Verified 11/21/22 10:23 [From Tessalon Perles] Milk Containing Products Allergy Unknown Verified 11/21/22 10:23 [Dairy] sulfamethoxazole Allergy Rash/Hives Verified 11/21/22 10:23 [From Bactrim] trimethoprim [From Bactrim] Allergy Rash/Hives Verified 11/21/22 10:23 dicyclomine [From Bentyl] AdvReac DIZZINESS Verified 11/21/22 10:23 ibuprofen [From Motrin] AdvReac KIDNEY PAIN Verified 11/21/22 10:23 metoclopramide [From Reglan] AdvReac ANXIETY Verified 11/21/22 10:23 Review of Systems ROS Statement: Those systems with pertinent positive or pertinent negative responses have been documented in the HPI. ROS Other: All systems not noted in ROS Statement are negative. Past Medical History Past Medical History: Asthma, Diabetes Mellitus, GERD/Reflux, Thyroid Disorder Additional Past Medical History / Comment(s): anemia History of Any Multi-Drug Resistant Organisms: None Reported Past Surgical History: Adenoidectomy Additional Past Surgical History / Comment(s): Eye surgery Past Psychological History: Anxiety, Depression Smoking Status: Former smoker Past Alcohol Use History: Occasional, Rare Past Drug Use History: Marijuana General Exam General appearance: alert, in no apparent distress Head exam: Present: atraumatic, normocephalic, normal inspection Eye exam: Present: normal appearance, PERRL, EOMI. Absent: scleral icterus, conjunctival injection, periorbital swelling ENT exam: Present: normal exam, mucous membranes moist Expanded Mouth exam: Present: normal external inspection, tongue normal. Absent: drooling, trismus, muffled voice, tongue elevation Throat exam: tonsillar erythema, tonsillomegaly. negative: tonsillar exudate, R peritonsillar mass, L peritonsillar mass Neck exam: Present: normal inspection. Absent: tenderness, meningismus, lymphadenopathy Respiratory exam: Present: normal lung sounds bilaterally. Absent: respiratory distress, wheezes, rales, rhonchi, stridor Cardiovascular Exam: Present: regular rate, normal rhythm, normal heart sounds. Absent: systolic murmur, diastolic murmur, rubs, gallop, clicks GI/Abdominal exam: Present: soft, normal bowel sounds. Absent: distended, tenderness, guarding, rebound, rigid Extremities exam: Present: normal inspection, full ROM, normal capillary refill. Absent: tenderness, pedal edema, joint swelling, calf tenderness Back exam: Present: normal inspection Neurological exam: Present: alert, oriented X3, CN II-XII intact Psychiatric exam: Present: normal affect, normal mood Skin exam: Present: warm, dry, intact, normal color. Absent: rash Course Vital Signs 11/21/22 11/21/22 10:22 12:05 Temperature 97.7 F 98.0 F Pulse Rate 72 69 Respiratory 18 18 Rate Blood Pressure 143/84 128/78 O2 Sat by Pulse 98 99 Oximetry Medical Decision Making - Medical Decision Making Was pt. sent in by a medical professional or institution? @ -self Did you speak to anyone other than the patient for history? @ -patient Did you review nursing and triage notes? @ -I reviewed the above triage note Were old charts reviewed? @ -No Differential Diagnosis? @ -COVID19, Upper respiratory infection, mononucleosis, strep throat Did you discuss the management of the patient with other professionals? @ -I discussed the case with Dr. Ferguson who agrees with the plan for discharge Was patient admitted / discharged? @ -Patient presented for a sore throat. Lab results remarkable for strep throat. Patient was given a prescription for amoxicillin and recommend close follow up with PCP. I discussed the results in detail with the patient, and return precautions were discussed. Patient discharged in stable condition. Case discussed with Dr. Ferguson Jonel. Diagnosis/symptom? @ -strep throat Acute, or Chronic, or Acute on Chronic? @ -acute Uncomplicated (without systemic symptoms) or Complicated (systemic symptoms)? @ -uncomplicated Side effects of treatment? @ -abdominal pain, nausea, vomiting Poses a threat to life or bodily function? @ -low likelihood - Lab Data Lab Results 11/21/22 11/21/22 Range/Units 10:26 10:26 Influenza Type A (PCR) Not Detected (Not Detectd) Influenza Type B (PCR) Not Detected (Not Detectd) RSV (PCR) Not Detected (Not Detectd) SARS-CoV-2 (PCR) Not Detected (Not Detectd) Group A Strep (PCR) DETECTED A (Not Detectd) Disposition Clinical Impression: Strep throat Disposition: HOME SELF-CARE Condition: Stable Additional Instructions: please return to the emergency department if worsening dyspnea, sore throat, or fever. Prescriptions: Amoxicillin 500 mg PO Q12HR 10 Days #20 cap Is patient prescribed a controlled substance at d/c from ED?: No Referrals: Margaret Bradford MD [Primary Care Provider] - 1-2 days Time of Disposition: 11:55
[2022-11-21 12:08] VITALS: BP 128/78; PULSE 69; TEMP 98
== END 2022-11-21 12:05 | disposition home or self-care (01) ==
LOC: EC 10:05
DX: J02.9 Acute pharyngitis, unspecified (principal); B95.0 Streptococcus, group A, as the cause of diseases classified elsewhere; J45.909 Unspecified asthma, uncomplicated; E11.9 Type 2 diabetes mellitus without complications; K21.9 Gastro-esophageal reflux disease without esophagitis; E07.9 Disorder of thyroid, unspecified; F41.9 Anxiety disorder, unspecified; F32.A Depression, unspecified; Z87.891 Personal history of nicotine dependence; F12.90 Cannabis use, unspecified, uncomplicated; Z88.8 Allergy status to other drugs, medicaments and biological substances; Z88.2 Allergy status to sulfonamides; Z91.011 Allergy to milk products; Z88.3 Allergy status to other anti-infective agents; Z79.890 Hormone replacement therapy; Z79.899 Other long term (current) drug therapy; Z20.822 Contact with and (suspected) exposure to COVID-19
CPT/HCPCS: 87636; 87651; 99283

== ENCOUNTER 2024-01-07 06:53 | Emergency (ER) | payer OTHER ==
[2024-01-07 07:19] VITALS: BP 129/83; PULSE 111; RESP 20; TEMP 98.9
[2024-01-07] MEDS: ONDANSETRON ODT 4 MG TAB PO STA (07:29)
--- NOTE | 2024-01-07 07:45 | ED ---
Fever HPI - General Chief Complaint: Fever Stated Complaint: Vomiting Time Seen by Provider: 01/07/24 07:06 Source: patient, RN notes reviewed Mode of arrival: ambulatory Limitations: no limitations - History of Present Illness Initial Comments: 28-year-old female presents emergency department complaint of fever chills cough and cold-like symptoms. Patient has been sick for last few days. Patient states that her tested positive for influenza A. She states she started vomiting this morning presented to emergency department. Patient states she missed work yesterday. Patient denies any localized abdominal pain she has not taken anything for her fever. Patient denies any history of lung disease denies neck pain or neck stiffness. - Related Data Home Medications Medication Instructions Recorded Confirmed Levothyroxine Sodium [Synthroid] 200 mcg PO DAILY@1500 08/12/17 05/07/21 Omeprazole 40 mg PO HS 08/12/17 05/07/21 Montelukast [Singulair] 10 mg PO DAILY@1500 11/17/18 05/07/21 FLUoxetine HCL [PROzac] 20 mg PO DAILY@1500 01/12/19 05/07/21 Levothyroxine Sodium [Synthroid] 25 mcg PO Q48H 01/12/19 05/07/21 Ferrous Sulfate [Feosol] 325 mg PO DAILY@1500 06/25/19 05/07/21 Loratadine [Claritin] 10 mg PO DAILY@1500 07/14/19 05/07/21 Albuterol Sulfate [Albuterol 1 - 2 puff PO RT-Q6H PRN 05/07/21 05/07/21 Sulfate Hfa] Fluticasone Propionate [Flovent 2 puff INHALATION RT-BID 05/07/21 05/07/21 Hfa 220 mcg] Ondansetron Odt [Zofran Odt] 4 - 8 mg PO BID PRN 05/07/21 05/07/21 norethindrone-e.estradioL-iron 1 tab PO DAILY@1500 05/07/21 05/07/21 [Aurovela 24 Fe 1 mg-20 Mcg Tab] Previous Rx's Medication Instructions Recorded Erythromycin Ophth Oint [Romycin 1 applic LEFT EYE QID 7 Days #1 gm 06/25/21 Ophth Oint] Amoxicillin 500 mg PO Q8H #30 capsule 08/11/22 Tobramycin 0.3% Ophth Soln [Tobrex 1 drop BOTH EYES Q4H #5 ml 08/12/22 0.3% Ophth Soln] Amoxicillin 500 mg PO Q12HR 10 Days #20 cap 11/21/22 Ondansetron Odt [Zofran Odt] 4 mg PO Q8HR PRN #10 tab 01/07/24 Allergies Allergy/AdvReac Type Severity Reaction Status Date / Time benzonatate Allergy Rash/Hives Verified 01/07/24 06:57 [From Tessalon Perles] Milk Containing Products Allergy Unknown Verified 01/07/24 06:57 (Dairy) [Dairy] sulfamethoxazole Allergy Rash/Hives Verified 01/07/24 06:57 [From Bactrim] trimethoprim [From Bactrim] Allergy Rash/Hives Verified 01/07/24 06:57 dicyclomine [From Bentyl] AdvReac DIZZINESS Verified 01/07/24 06:57 ibuprofen [From Motrin] AdvReac KIDNEY PAIN Verified 01/07/24 06:57 metoclopramide [From Reglan] AdvReac ANXIETY Verified 01/07/24 06:57 Review of Systems ROS Statement: Those systems with pertinent positive or pertinent negative responses have been documented in the HPI. ROS Other: All systems not noted in ROS Statement are negative. Past Medical History Past Medical History: Asthma, Diabetes Mellitus, GERD/Reflux, Thyroid Disorder Additional Past Medical History / Comment(s): anemia History of Any Multi-Drug Resistant Organisms: None Reported Past Surgical History: Adenoidectomy Additional Past Surgical History / Comment(s): Eye surgery Past Psychological History: Anxiety, Depression Smoking Status: Former smoker Past Alcohol Use History: Occasional, Rare Past Drug Use History: Marijuana General Exam Limitations: no limitations General appearance: alert, in no apparent distress Head exam: Present: atraumatic, normocephalic, normal inspection Eye exam: Present: normal appearance, PERRL, EOMI. Absent: scleral icterus, conjunctival injection, periorbital swelling ENT exam: Present: normal exam, normal oropharynx, mucous membranes moist Neck exam: Present: normal inspection, full ROM. Absent: tenderness, meningismus, lymphadenopathy Respiratory exam: Present: normal lung sounds bilaterally. Absent: respiratory distress, wheezes, rales, rhonchi, stridor Cardiovascular Exam: Present: normal rhythm, tachycardia, normal heart sounds. Absent: systolic murmur, diastolic murmur, rubs, gallop, clicks GI/Abdominal exam: Present: soft, normal bowel sounds. Absent: distended, tenderness, guarding, rebound, rigid Course Vital Signs 01/07/24 06:54 Temperature 98.9 F Pulse Rate 111 H Respiratory 20 Rate Blood Pressure 129/83 O2 Sat by Pulse 96 Oximetry Medical Decision Making - Medical Decision Making Was pt. sent in by a medical professional or institution ([facility] Workman, DESIGN DRAFTER CHIEF, urgent care, hospital, or fpc...) When possible be specific @ -No Did you speak to anyone other than the patient for history (EMS, parent, family, police, friend...)? What history was obtained from this source @ -No Did you review nursing and triage notes (agree or disagree)? Why? @ -I reviewed and agree with nursing and triage notes Were old charts reviewed (outside hosp., previous admission, EMS record, old EKG, old radiological studies, urgent care reports/EKG's, fpc records)? Report findings @ -No old charts were reviewed Differential Diagnosis (chest pain, altered mental status, abdominal pain women, abdominal pain men, vaginal bleeding, weakness, fever, dyspnea, syncope, headache, dizziness, GI bleed, back pain, seizure, CVA, palpatations, mental health, musculoskeletal)? @ -[COVID 19, RSV, influenza, pneumonia, acute bronchitis, URI, this list is not all inclusive EKG interpreted by me (3pts min.). @ -None X-rays interpreted by me (1pt min.). @ -[None done CT interpreted by me (1pt min.). @ -None done U/S interpreted by me (1pt. min.). @ -None done What testing was considered but not performed or refused? (CT, X-rays, U/S, labs)? Why? @ -None What meds were considered but not given or refused? Why? @ -None Did you discuss the management of the patient with other professionals (professionals i.e. MARYANN Workman, DESIGN DRAFTER CHIEF, lab, RT, psych nurse, social services designee, hr shared services consultant, teacher, affirmative action officer, director of casework services)? Give summary @ -No Was smoking cessation discussed for >3mins.? @ -No Was critical care preformed (if so, how long)? @ -No Were there social determinants of health that impacted care today? How? (Homelessness, low income, unemployed, alcoholism, drug addiction, transportation, low edu. Level, literacy, decrease access to med. care, senior living, rehab)? @ -No Was there de-escalation of care discussed even if they declined (Discuss DNR or withdrawal of care, Hospice)? DNR status @ -No What co-morbidities impacted this encounter? (DM, HTN, Smoking, COPD, CAD, Cancer, CVA, ARF, Chemo, Hep., AIDS, mental health diagnosis, sleep apnea, morbid obesity)? @ -None Was patient admitted / discharged? Hospital course, mention meds given and route, prescriptions, significant lab abnormalities, going to OR and other pertinent info. @ -[Discharge patient is influenza A positive. Patient was provided Zofran for nausea. Patient had symptoms for last 4 days will not be started on Tamiflu. Patient discharged with prescription of Zofran return plans were discussed. Undiagnosed new problem with uncertain prognosis? @ -No Drug Therapy requiring intensive monitoring for toxicity (Heparin, Nitro, Insulin, Cardizem)? @ -No Were any procedures done? @ -No Diagnosis/symptom? @ -[Influenza A Acute, or Chronic, or Acute on Chronic? @ -Acute Uncomplicated (without systemic symptoms) or Complicated (systemic symptoms)? @ -Uncomplicated Side effects of treatment? @ -No Exacerbation, Progression, or Severe Exacerbation? @ -No Poses a threat to life or bodily function? How? (Chest pain, [place], [place], pneumonia, PE, COPD, DKA, ARF, appy, cholecystitis, CVA, Diverticulitis, Homicidal, Suicidal, threat to staff... and all critical care pts) @ -No - Lab Data Lab Results 01/07/24 Range/Units 06:59 Influenza Type A (PCR) Detected A (Not Detectd) Influenza Type B (PCR) Not Detected (Not Detectd) RSV (PCR) Not Detected (Not Detectd) SARS-CoV-2 (PCR) Not Detected (Not Detectd) Disposition Clinical Impression: Influenza A Disposition: HOME SELF-CARE Condition: Stable Instructions (If sedation given, give patient instructions): Influenza (ED) Additional Instructions: Please return to the Emergency Department if symptoms worsen or any other concerns. Prescriptions: Ondansetron Odt [Zofran Odt] 4 mg PO Q8HR PRN #10 tab PRN Reason: Nausea Is patient prescribed a controlled substance at d/c from ED?: No Referrals: Margaret Bradford MD [Primary Care Provider] - 1-2 days Time of Disposition: 07:58
== END 2024-01-07 08:05 | disposition home or self-care (01) ==
LOC: EC 06:53
DX: J10.1 Influenza due to other identified influenza virus with other respiratory manifestations (principal); J45.909 Unspecified asthma, uncomplicated; E11.9 Type 2 diabetes mellitus without complications; K21.9 Gastro-esophageal reflux disease without esophagitis; E07.9 Disorder of thyroid, unspecified; F41.9 Anxiety disorder, unspecified; F32.A Depression, unspecified; F12.90 Cannabis use, unspecified, uncomplicated; Z87.891 Personal history of nicotine dependence; Z79.890 Hormone replacement therapy; Z79.899 Other long term (current) drug therapy; Z88.2 Allergy status to sulfonamides; Z88.8 Allergy status to other drugs, medicaments and biological substances; Z91.011 Allergy to milk products; Z91.041 Radiographic dye allergy status; Z20.822 Contact with and (suspected) exposure to COVID-19
CPT/HCPCS: 87636; 99283

== ENCOUNTER → 2024-04-16 | Outpatient (CLI) | payer OTHER ==
--- NOTE | 2024-04-18 16:59 | US ---
EXAMINATION TYPE: US arterial LE single level DATE OF EXAM: 04/16/2024 3:38 PM CLINICAL INDICATION: Female, 29 years old with history of E04.1 THYROID NODULE R60.0 EDEMA LOWER EXT; swelling in legs History of: Smoker: previous Hypertension: n Diabetic: y Hyperlipidemia: y TIA/CVA: n Previous Vascular Surgery: n CAD: n CA: n Vascular Ulcers: n Claudication: n Gangrene: n Doppler Waveforms: Right: Multiphasic Left: Multiphasic Right Brachial Pressure: 150 Left Brachial Pressure: 142 Ankle-Brachial Indices: Right: 1.1 Left: 1.0 (Vessel hardening > 1.4; Normal 0.9 - 1.4, Moderate 0.7 - 0.9, Severe 0.5-0.7) Toe Brachial Indices: Right: 0.8 Left: 0.8 IMPRESSION: Normal ankle-brachial indices bilaterally.
--- NOTE | 2024-04-18 17:52 | US ---
EXAMINATION TYPE: US thyroid st tissue head/neck DATE OF EXAM: 04/16/2024 COMPARISON: Thyroid ultrasound 07/30/2022 CLINICAL INDICATION: Female, 29 years old with history of E04.1 THYROID NODULE R60.0 EDEMA LOWER EXT; on meds for thyroid for years GLAND SIZE: Right Lobe: 3.3 x 1.0 x 2.3 cm Overall Parenchyma: heterogeneous Left Lobe: 2.3 x 0.8 x 0.7 cm Overall Parenchyma: heterogeneous Isthmus Thickness: 0.1 cm NODULES RIGHT: # of nodules measured on right: 0 LEFT: # of nodules measured on left: 0 ISTHMUS: # of nodules measured in the isthmus: 0 Bilateral neck scanned, no evidence of lymphadenopathy. IMPRESSION: Small heterogenous thyroid gland without discrete nodule.
== END | disposition home or self-care (01) ==
LOC: RADUSWWP 14:57
PROVIDERS: ATTEND Family Medicine
DX: E04.1 Nontoxic single thyroid nodule (principal); R60.0 Localized edema
CPT/HCPCS: 76536; 93922

== ENCOUNTER 2025-01-14 19:05 | Emergency (ER) | payer OTHER ==
[2025-01-14 19:14] VITALS: PULSE 79
--- NOTE | 2025-01-14 20:15 | ED ---
Female Urogenital HPI - General Chief complaint: Urogenital Stated complaint: poss UTI Time Seen by Provider: 01/14/25 20:13 Source: patient, RN notes reviewed Mode of arrival: ambulatory Limitations: no limitations - History of Present Illness Initial comments: 29-year-old female presenting for pelvic pain x 5 days. Reports a dull, constant pain in the pelvic area that radiates to her back. Endorses dysuria and reports this feels similar to previous UTIs. She is also complaining of clear vaginal discharge. She recently treated herself with Monistat for a vaginal yeast infection 1 week ago which she feels is cleared up now. She is not concerned about STDs at this time. History of type 2 diabetes. She is currently on her menstrual period. - Related Data Home Medications Medication Instructions Recorded Confirmed Levothyroxine Sodium [Synthroid] 200 mcg PO DAILY@1500 08/12/17 05/07/21 Omeprazole 40 mg PO HS 08/12/17 05/07/21 Montelukast [Singulair] 10 mg PO DAILY@1500 11/17/18 05/07/21 FLUoxetine HCL [PROzac] 20 mg PO DAILY@1500 01/12/19 05/07/21 Levothyroxine Sodium [Synthroid] 25 mcg PO Q48H 01/12/19 05/07/21 Ferrous Sulfate [Feosol] 325 mg PO DAILY@1500 06/25/19 05/07/21 Loratadine [Claritin] 10 mg PO DAILY@1500 07/14/19 05/07/21 Albuterol Sulfate [Albuterol 1 - 2 puff PO RT-Q6H PRN 05/07/21 05/07/21 Sulfate Hfa] Fluticasone Propionate [Flovent 2 puff INHALATION RT-BID 05/07/21 05/07/21 Hfa 220 mcg] Ondansetron Odt [Zofran Odt] 4 - 8 mg PO BID PRN 05/07/21 05/07/21 norethindrone-e.estradioL-iron 1 tab PO DAILY@1500 05/07/21 05/07/21 [Aurovela 24 Fe 1 mg-20 Mcg Tab] Previous Rx's Medication Instructions Recorded Erythromycin Ophth Oint [Romycin 1 applic LEFT EYE QID 7 Days #1 gm 06/25/21 Ophth Oint] Amoxicillin 500 mg PO Q8H #30 capsule 08/11/22 Tobramycin 0.3% Ophth Soln [Tobrex 1 drop BOTH EYES Q4H #5 ml 08/12/22 0.3% Ophth Soln] Amoxicillin 500 mg PO Q12HR 10 Days #20 cap 11/21/22 Ondansetron Odt [Zofran Odt] 4 mg PO Q8HR PRN #10 tab 01/07/24 Cephalexin [Keflex] 500 mg PO Q12H 7 Days #14 cap 01/14/25 Allergies Allergy/AdvReac Type Severity Reaction Status Date / Time benzonatate Allergy Rash/Hives Verified 01/14/25 19:14 [From Tessalon Perles] Milk Containing Products Allergy Unknown Verified 01/14/25 19:14 (Dairy) [Dairy] sulfamethoxazole Allergy Rash/Hives Verified 01/14/25 19:14 [From Bactrim] trimethoprim [From Bactrim] Allergy Rash/Hives Verified 01/14/25 19:14 dicyclomine [From Bentyl] AdvReac DIZZINESS Verified 01/14/25 19:14 ibuprofen [From Motrin] AdvReac KIDNEY PAIN Verified 01/14/25 19:14 metoclopramide [From Reglan] AdvReac ANXIETY Verified 01/14/25 19:14 Review of Systems ROS Statement: Those systems with pertinent positive or pertinent negative responses have been documented in the HPI. ROS Other: All systems not noted in ROS Statement are negative. Past Medical History Past Medical History: Asthma, Diabetes Mellitus, GERD/Reflux, Thyroid Disorder Additional Past Medical History / Comment(s): anemia History of Any Multi-Drug Resistant Organisms: None Reported Past Surgical History: Adenoidectomy Additional Past Surgical History / Comment(s): Eye surgery Past Psychological History: Anxiety, Depression Smoking Status: Former smoker Past Alcohol Use History: Rare Past Drug Use History: Marijuana General Exam Limitations: no limitations General appearance: alert, in no apparent distress Head exam: Present: atraumatic, normocephalic, normal inspection Eye exam: Present: normal appearance, PERRL, EOMI. Absent: scleral icterus, conjunctival injection, periorbital swelling ENT exam: Present: normal exam, mucous membranes moist GI/Abdominal exam: Present: soft, normal bowel sounds. Absent: distended, tenderness, guarding, rebound, rigid External exam: Present: other (LAKESHA Jean-Baptiste present for pelvic examination. Cervix visualized and normal. No abnormal discharge or lesions. Vaginal swabs were taken at this time.) Back exam: Absent: CVA tenderness (R), CVA tenderness (L) Neurological exam: Present: alert, oriented X3 Psychiatric exam: Present: normal affect, normal mood Skin exam: Present: warm, dry, intact, normal color. Absent: rash Course Vital Signs 01/14/25 01/14/25 19:11 22:49 Temperature 97.6 F 97.9 F Pulse Rate 79 Respiratory 18 19 Rate Blood Pressure 134/83 141/86 O2 Sat by Pulse 99 100 Oximetry Medical Decision Making - Medical Decision Making Was pt. sent in by a medical professional or institution (MARYANN Workman, MUNICIPAL SERVICES MANAGER, urgent care, hospital, or usp...) When possible be specific @ -No Did you speak to anyone other than the patient for history (EMS, parent, family, police, friend...)? What history was obtained from this source @ -No Did you review nursing and triage notes (agree or disagree)? Why? @ -I reviewed and agree with nursing and triage notes Were old charts reviewed (outside hosp., previous admission, EMS record, old EKG, old radiological studies, urgent care reports/EKG's, usp records)? Report findings @ -No old charts were reviewed Differential Diagnosis (chest pain, altered mental status, abdominal pain women, abdominal pain men, vaginal bleeding, weakness, fever, dyspnea, syncope, head ache, dizziness, GI bleed, back pain, seizure, CVA, palpatations, mental health, musculoskeletal)? @ -Differential Abdominal Pain Women: Appendicitis, Cholecystitis, diverticulosis, ischemic bowel, pancreatitis, hepatitis, UTI, gastroenteritis, AAA, incarcerated hernia, bowel obstruction, constipation, inflammatory bowel, hepatitis, peptic ulcer disease, splenic infarction, perforated viscus, vulvitis, ovarian torsion, PID, kidney stone, placenta abruption, this is not meant to be an all-inclusive list EKG interpreted by me (3pts min.). @ -None X-rays interpreted by me (1pt min.). @ -None done CT interpreted by me (1pt min.). @ -None done U/S interpreted by me (1pt. min.). @ -None done What testing was considered but not performed or refused? (CT, X-rays, U/S, labs)? Why? @ -Ultrasound deferred due to no vaginal bleeding or red flag symptoms What meds were considered but not given or refused? Why? @ -None Did you discuss the management of the patient with other professionals (samanta najera i.e. , PA, MUNICIPAL SERVICES MANAGER, lab, RT, psych nurse, social media coordinator, conveyor console operator, teacher, airfield services officer, block and case maker)? Give summary @ -No Was smoking cessation discussed for >3mins.? @ -No Was critical care preformed (if so, how long)? @ -No Were there social determinants of health that impacted care today? How? (Homelessness, low income, unemployed, alcoholism, drug addiction, transportation, low edu. Level, literacy, decrease access to med. care, care home, rehab)? @ -No Was there de-escalation of care discussed even if they declined (Discuss DNR or withdrawal of care, Hospice)? DNR status @ -No What co-morbidities impacted this encounter? (DM, HTN, Smoking, COPD, CAD, Cancer, CVA, ARF, Chemo, Hep., AIDS, mental health diagnosis, sleep apnea, morbid obesity)? @ -None Was patient admitted / discharged? Hospital course, mention meds given and route, prescriptions, significant lab abnormalities, going to OR and other pertinent info. @ -Discharged. 29-year-old female presenting for pelvic pain x 5 days with dysuria. Abdomen soft and nonsurgical. Patient is afebrile with no CVA tenderness. Pelvic examination unremarkable. Vaginal swabs sent. Lab work remarkable for mild leukocytosis of 13, no lactic acidosis. Urinalysis remarkable for 11 white blood cells but otherwise unremarkable. Urine negative. I discussed results with patient. Will prescribe course of outpatient antibiotics to treat for urinary tract infection. Will call with positive vaginal swab results. Appropriate return precautions and follow-up care discussed. Case was discussed with my ED attending Dr. Bruce. Undiagnosed new problem with uncertain prognosis? @ -No Drug Therapy requiring intensive monitoring for toxicity (Heparin, Nitro, Insulin, Cardizem)? @ -No Were any procedures done? @ -No Diagnosis/symptom? @ -Urinary tract infection Acute, or Chronic, or Acute on Chronic? @ -Acute Uncomplicated (without systemic symptoms) or Complicated (systemic symptoms)? @ -Uncomplicated Side effects of treatment? @ -No Exacerbation, Progression, or Severe Exacerbation? @ -No Poses a threat to life or bodily function? How? (Chest pain, [place], NE, pneumonia, PE, COPD, DKA, ARF, appy, cholecystitis, CVA, Diverticulitis, Homicidal, Suicidal, threat to staff... and all critical care pts) @ -No - Lab Data Result diagrams: 01/14/25 20:31 01/14/25 20:31 Lab Results 01/14/25 01/14/25 01/14/25 Range/Units 20:16 20:16 20:31 WBC 13.7 H (3.8-10.6) k/uL RBC 4.87 (3.80-5.40) m/uL Hgb 13.0 (11.4-16.0) gm/dL Hct 40.3 (34.0-46.0) % MCV 82.9 (80.0-100.0) fL MCH 26.6 (25.0-35.0) pg MCHC 32.1 (31.0-37.0) g/dL RDW 14.5 (11.5-15.5) % Plt Count 376 (150-450) k/uL MPV 8.3 Neutrophils % 71 % Lymphocytes % 21 % Monocytes % 4 % Eosinophils % 3 % Basophils % 0 % Neutrophils # 9.8 H (1.3-7.7) k/uL Lymphocytes # 2.8 (1.0-4.8) k/uL Monocytes # 0.5 (0-1.0) k/uL Eosinophils # 0.4 (0-0.7) k/uL Basophils # 0.1 (0-0.2) k/uL Sodium (137-145) mmol/L Potassium (3.5-5.1) mmol/L Chloride (98-107) mmol/L Carbon Dioxide (22-30) mmol/L Anion Gap mmol/L BUN (7-17) mg/dL Creatinine (0.52-1.04) mg/dL Est GFR (CKD-EPI)AfAm (>60 ml/min/1.73 sqM) Est GFR (CKD-EPI)NonAf (>60 ml/min/1.73 sqM) Glucose (74-99) mg/dL Plasma Lactic Acid Tk (0.7-2.0) mmol/L Calcium (8.4-10.2) mg/dL Total Bilirubin (0.2-1.3) mg/dL AST (14-36) U/L ALT (4-34) U/L Alkaline Phosphatase (38-126) U/L Total Protein (6.3-8.2) g/dL Albumin (3.5-5.0) g/dL Urine Color Colorless Urine Appearance Clear (Clear) Urine pH 5.5 (5.0-8.0) Ur Specific [place] 1.006 (1.001-1.035) Urine Protein Negative (Negative) Urine Glucose (UA) Negative (Negative) Urine Ketones Negative (Negative) Urine Blood Negative (Negative) Urine Nitrite Negative (Negative) Urine Bilirubin Negative (Negative) Urine Urobilinogen <2.0 (<2.0) mg/dL Ur Leukocyte Esterase Trace H (Negative) Urine WBC 11 H (0-5) /hpf Urine HCG, Qual Not Detected (Not Detectd) 01/14/25 01/14/25 Range/Units 20:31 20:31 WBC (3.8-10.6) k/uL RBC (3.80-5.40) m/uL Hgb (11.4-16.0) gm/dL Hct (34.0-46.0) % MCV (80.0-100.0) fL MCH (25.0-35.0) pg MCHC (31.0-37.0) g/dL RDW (11.5-15.5) % Plt Count (150-450) k/uL MPV Neutrophils % % Lymphocytes % % Monocytes % % Eosinophils % % Basophils % % Neutrophils # (1.3-7.7) k/uL Lymphocytes # (1.0-4.8) k/uL Monocytes # (0-1.0) k/uL Eosinophils # (0-0.7) k/uL Basophils # (0-0.2) k/uL Sodium 137 (137-145) mmol/L Potassium 3.5 (3.5-5.1) mmol/L Chloride 99 (98-107) mmol/L Carbon Dioxide 30 (22-30) mmol/L Anion Gap 8 mmol/L BUN 10 (7-17) mg/dL Creatinine 0.67 (0.52-1.04) mg/dL Est GFR (CKD-EPI)AfAm >90 (>60 ml/min/1.73 sqM) Est GFR (CKD-EPI)NonAf >90 (>60 ml/min/1.73 sqM) Glucose 135 H (74-99) mg/dL Plasma Lactic Acid Tk 1.2 (0.7-2.0) mmol/L Calcium 9.1 (8.4-10.2) mg/dL Total Bilirubin 0.4 (0.2-1.3) mg/dL AST 20 (14-36) U/L ALT 17 (4-34) U/L Alkaline Phosphatase 77 (38-126) U/L Total Protein 7.4 (6.3-8.2) g/dL Albumin 4.1 (3.5-5.0) g/dL Urine Color Urine Appearance (Clear) Urine pH (5.0-8.0) Ur Specific [place] (1.001-1.035) Urine Protein (Negative) Urine Glucose (UA) (Negative) Urine Ketones (Negative) Urine Blood (Negative) Urine Nitrite (Negative) Urine Bilirubin (Negative) Urine Urobilinogen (<2.0) mg/dL Ur Leukocyte Esterase (Negative) Urine WBC (0-5) /hpf Urine HCG, Qual (Not Detectd) Disposition Clinical Impression: Urinary tract infection Disposition: HOME SELF-CARE Condition: Stable Instructions (If sedation given, give patient instructions): Urinary Tract Infection in Women (ED) Additional Instructions: Take Keflex twice daily for 7 days for urinary tract infection. Follow-up with PCP as discussed. Please return to the Emergency Department if symptoms worsen or any other concerns. Prescriptions: Cephalexin [Keflex] 500 mg PO Q12H 7 Days #14 cap Is patient prescribed a controlled substance at d/c from ED?: No Referrals: Margaret Bradford MD [Primary Care Provider] - 1-2 days Time of Disposition: 22:54
[2025-01-14 20:29] LABS: Appearance,Urine Clear (Clear); Bilirubin,Urine Negative (Negative); Blood,Urine Negative (Negative); Color,Urine Colorless; Glucose,Urine (UA) Negative (Negative); Ketones,Urine Negative (Negative); Leukocyte Esterase,Urine Trace (Negative); Nitrite,Urine Negative (Negative); PH, Urine 5.5 (5.0-8.0); Protein,Urine Negative (Negative); Specific Gravity,Urine 1.006 (1.001-1.035); Urobilinogen,Urine <2.0 mg/dL (<2.0); WBC,Urine 11 /hpf (0-5)
[2025-01-14] MEDS: SODIUM CHLORIDE 0.9% 1,000 ML IV STA (20:33)
[2025-01-14 21:01] LABS: Basophils # (A) 0.1 k/uL (0-0.2); Basophils % (A) 0 %; Eosinophils # (A) 0.4 k/uL (0-0.7); Eosinophils % (A) 3 %; HCT 40.3 % (34.0-46.0); Lymphocytes # (A) 2.8 k/uL (1.0-4.8); Lymphocytes % (A) 21 %; MCH 26.6 pg (25.0-35.0); MCHC 32.1 g/dL (31.0-37.0); MCV 82.9 fL (80.0-100.0); Mean Platelet Volume 8.3; Monocytes # (A) 0.5 k/uL (0-1.0); Monocytes % (A) 4 %; Neutrophils # (A) 9.8 k/uL (1.3-7.7); Neutrophils % (A) 71 %; Platelet Count 376 k/uL (150-450); RBC 4.87 m/uL (3.80-5.40); RDW 14.5 % (11.5-15.5); WBC 13.7 k/uL (3.8-10.6)
[2025-01-14 21:21] LABS: ALT 17 U/L (4-34); AST 20 U/L (14-36); African American GFR (CKD) >90 (>60 ml/min/1.73 sqM); Albumin 4.1 g/dL (3.5-5.0); Alkaline Phosphatase 77 U/L (38-126); Anion Gap 8 mmol/L; Blood Urea Nitrogen 10 mg/dL (7-17); Calcium 9.1 mg/dL (8.4-10.2); Carbon Dioxide 30 mmol/L (22-30); Chloride 99 mmol/L (98-107); Glucose 135 mg/dL (74-99); Non-African American GFR(CKD) >90 (>60 ml/min/1.73 sqM); Potassium 3.5 mmol/L (3.5-5.1); Sodium 137 mmol/L (137-145); Total Bilirubin 0.4 mg/dL (0.2-1.3); Total Protein 7.4 g/dL (6.3-8.2)
[2025-01-14 22:53] VITALS: BP 141/86; RESP 19; TEMP 97.9
[2025-01-14] MEDS: CEPHALEXIN 500 MG CAP PO STA (22:57)
== END 2025-01-14 23:04 | disposition home or self-care (01) ==
LOC: EC 19:05
DX: N39.0 Urinary tract infection, site not specified (principal); Z87.891 Personal history of nicotine dependence; Z88.1 Allergy status to other antibiotic agents; Z88.2 Allergy status to sulfonamides; Z88.6 Allergy status to analgesic agent; Z91.011 Allergy to milk products; Z88.8 Allergy status to other drugs, medicaments and biological substances
CPT/HCPCS: 36415; 80053; 81001; 81025; 83605; 85025; 87070; 87075; 87086; 87491; 87591; 96360; 96361; 99283